=== PATIENT | male | born 1980 | race Caucasian/White ===

== ENCOUNTER 2021-01-07 07:34 | Outpatient (REF) | payer OTHER, SELFPAY ==
[2021-01-07 10:05] LABS: MANUAL DIFF FLAG NO
[2021-01-07 10:10] LABS: Basophils Percent Auto 0.3 % (0-2); Eosinophils Absolute Auto 0.3 X10*3/uL (0.0-0.4); Eosinophils Percent Auto 3.9 % (0-4); Hematocrit 43.2 % (42-52); Hemoglobin 14.2 g/dl (14.0-18.0); Imm Gran Abs Auto 0.02 X10*3/uL (0.00-0.03); Imm Gran Pct Auto 0.3 % (0.0-0.4); Mean Corpuscular HGB Conc 32.9 g/dl (31.0-36.0); Mean Corpuscular Hemoglobin 30.5 pg (27.0-33.0); Mean Corpuscular Volume 92.7 fL (80-98); Mean Platelet Volume 10.5 fL (9.4-12.4); Monocytes Absolute Auto 0.6 X10*3/uL (0.1-1.2); Monocytes Percent Auto 8.5 % (2-11); Neutrophils Absolute Auto 4.6 X10*3/uL (2.0-8.3); Platelet Count 246 X10*3/uL (160-400); Red Blood Count 4.66 X10*6/uL (4.60-5.80); White Blood Count 7.5 X10*3/uL (4.8-10.8)
[2021-01-07 11:04] LABS: Estimated Average Glucose 114 mg/dL; Hemoglobin A1c % 5.6 %
[2021-01-07 11:16] LABS: Alanine Aminotransferase 19 U/L (0-40); Albumin Level 4.2 g/dL (3.5-5.0); Alkaline Phosphatase 79 U/L (39-117); Anion Gap 10 (12-20); Aspartate Amino Transferase 18 U/L (5-37); Bilirubin Total 0.3 mg/dL (0.0-1.0); Blood Urea Nitrogen 16 mg/dL (9-16); Carbon Dioxide 30 mmol/L (22-29); Chloride 104 mmol/L (96-108); Cholesterol 171 mg/dL; Estimated Glomerular Filt Rate > 60; Glucose Fasting 104 mg/dL (60-99); HDL Cholesterol 33 mg/dL; LDL Cholesterol Calculated 110 mg/dl; Potassium 5.1 mmol/L (3.3-5.1); Sodium 139 mmol/L (135-145); Total Protein 7.8 g/dL (6.5-8.0); Triglycerides 140 mg/dL
== END 2021-01-07 07:35 | disposition home or self-care (01) ==
LOC: HO.10HDL 07:34
PROVIDERS: Visit Provider Psychiatry & Neurology Psychiatry
DX: F43.10 Post-traumatic stress disorder, unspecified (principal)
CPT/HCPCS: 36415; 80053; 80061; 83036; 85025

== ENCOUNTER 2021-03-09 19:42 | Emergency (ER) | payer OTHER, SELFPAY ==
--- NOTE | ~2021-03-09 | XR_ITS ---
EXAMINATION: XR KNEE, RIGHT CLINICAL INFORMATION: Right knee pain and swelling COMPARISON: None TECHNIQUE: Four views of the right knee. FINDINGS: There is some minimal degenerative change present at the patellofemoral joint with some mild posterior osteophytes. No joint space narrowing is seen. No joint effusion is seen. No fractures are seen. XR/XR knee RT 4V IMPRESSION: Minimal degenerative change at the patellofemoral joint only.
--- NOTE | ~2021-03-09 | US_ITS ---
EXAMINATION: US VENOUS ULTRASOUND WITH DOPPLER LOWER EXTREMITY, RIGHT CLINICAL INFORMATION: Right lower extremity pain and swelling COMPARISON: None TECHNIQUE: Ultrasound of the deep veins is performed from the hip to the calf with compression sonography and color and pulse Doppler assessment. Spectral analysis with color-flow imaging is performed. FINDINGS: There is normal venous compression and respiratory variation and augmented flow. The visualized common femoral vein, superficial femoral vein, profunda femoral vein, popliteal vein, and the trifurcation region shows no evidence of deep venous thrombosis. There is no significant popliteal fossa cyst. The contralateral left femoral vein appears normal If the patient's symptoms persist, followup ultrasound in 5 days 7 days might be of value to exclude proximal propagation from a non-visualized calf vein. US/US venous duplex LE RT IMPRESSION: No DVT demonstrated in the right lower extremity.
[2021-03-09 19:44] VITALS: BP 144/72; PULSE 99; RESP 18; TEMP 36.4; O2SAT 97; BMI 39.9
--- NOTE | 2021-03-09 20:01 | ED_ITS ---
HPI - Extremity Injury (Lower) General Chief Complaint: Extremity Injury, Lower Stated Complaint: Knee Swelling Time Seen by Provider: 03/09/21 19:53 Source: patient Mode of arrival: ambulatory Limitations: no limitations History of Present Illness HPI Narrative: 40-year-old male with no significant past medical history presents with 1 week of right knee pain, swelling, and warmth. 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 He states the pain is worse on the lateral side above the patella. He does not report any chest pain or pressure, palpitations, shortness of breath, shortness of breath on exertion, fevers, chills, abdominal pain, abdominal distention, dysuria, hematuria, loss of sensation to the extremity, or any other concerning symptoms. MD complaint: knee injury Onset (ago): week(s) (1) Type of Injury: unknown Place: work Severity: moderate Severity scale (1-10): 7 Relieving factors: nothing Exacerbating factors: weight bearing, movement and palpation Context: other (Kneeling) Associated symptoms: swelling and ambulatory Other symptoms: none Related Data Previous Rx's Medication Instructions Recorded ibuprofen 600 mg PO Q6H PRN #60 tab 03/09/21 Allergies Allergy/AdvReac Type Severity Reaction Status Date / Time No Known Allergies Allergy Verified 03/09/21 19:44 Review of Systems Review of Systems: Constitutional: No Fever, No Chills ENT/Mouth: No Ear Pain, No Hoarseness, No sore throat Eyes: No Eye Pain, No Swelling, No Redness, No Foreign Body Cardiovascular: No Chest Pain, No SOB Respiratory: No Cough, No Dyspnea Gastrointestinal: No Nausea, No Vomiting, No Diarrhea, No abdominal Pain Genitourinary: No Dysuria, No Hematuria Musculoskeletal: positive right knee pain and swelling, No Myalgias Skin: No Skin lacerations, No rash Neuro: No Weakness, No Numbness, No Paresthesias, No Loss of Consciousness, No Dizziness, No Headache Psych: No Anxiety/Panic, No Depression Heme/Lymph: no easy bruising, no Lymphadenopathy Endocrine: No Polyuria, No Polydipsia Yes all other systems are reviewed and are negative PMFSH Past Medical History Attestation statement: The following information was validated with the patient. Source: old records reviewed Medical History PTSD (post-traumatic stress disorder) Social History Social History Alcohol intake: never Smoking Status: Heavy tobacco smoker Use of substances other than those prescribed or required for medical reasons: No Any prior treatment program specific to substance use: No Advance Directives: No Advance Directives Information Provided: Yes Physical Exam Vital Signs: Vital Signs: Last Vital Signs Temp 97.6 F 03/09/21 19:44 Pulse 99 03/09/21 19:44 Resp 18 03/09/21 19:44 BP 144/72 H 03/09/21 19:44 Pulse Ox 97 03/09/21 19:44 Body Mass Index 39.9 Appearance: Alert. Oriented X3. No acute distress. Eyes: Pupils equal, round and reactive to light. ENT: Pharynx normal. Neck: Normal inspection. Neck supple. CVS: Normal heart rate and rhythm. Pulses normal. Respiratory: No respiratory distress. Breath sounds normal. Abdomen: Soft and nontender. Skin: Skin warm and dry. Normal skin color. Normal skin turgor. Extremities: Full range of motion to bilateral lower extremities, negative anterior and posterior draw, visible swelling noted to the right knee, pink in color, darker than the left. Tenderness noted to palpation suprapatellar. No lower extremity edema. Neuro: No motor deficit. No sensory deficit. Course Course Course Narrative: 40-year-old male, works as a manager communication and spends most of his work time kneeling presents with right knee pain and swelling for about a week. Presented today because the knee felt warmer than it has in the past and has become more pink. Patient does have full range of motion, negative anterior and posterior drawer, could possibly be an effusion, hemarthrosis, highly unlikely for septic joint as patient is afebrile. Plan of care is for x-ray and duplex. X-rays is negative, duplex is negative. Plan of care is for patient to follow-u p with orthopedics for follow-up. Detailed description of negative venous duplex study, he does understand that if swelling persists that he should repeat duplex in 5-7 days. Will give prescription for Motrin 600 mg. Patient verbalized understanding of and agrees to plan of care discharge home. MDM - Extremity Injury (Lower) MDM Narrative Medical decision making narrative: Effusion, hemarthrosis, septic joint, ACL injury, DVT Differential Diagnosis Differential diagnosis: Likely acute internal derangement of knee Medical Records Attestation: I reviewed the patient's medical records. Imaging Data Right knee x-ray: Attestation: I personally reviewed and interpreted this imaging study as follows: Radiologist's impression: EXAMINATION: XR KNEE, RIGHT CLINICAL INFORMATION: Right knee pain and swelling COMPARISON: None TECHNIQUE: Four views of the right knee. FINDINGS: There is some minimal degenerative change present at the patellofemoral joint with some mild posterior osteophytes. No joint space narrowing is seen. No joint effusion is seen. No fractures are seen. XR/XR knee RT 4V IMPRESSION: Minimal degenerative change at the patellofemoral joint only. Right venous duplex: Attestation: I personally reviewed and interpreted this imaging study as follows: Radiologist's impression: EXAMINATION: US VENOUS ULTRASOUND WITH DOPPLER LOWER EXTREMITY, RIGHT CLINICAL INFORMATION: Right lower extremity pain and swelling COMPARISON: None TECHNIQUE: Ultrasound of the deep veins is performed from the hip to the calf with compression sonography and color and pulse Doppler assessment. Spectral analysis with color-flow imaging is performed. FINDINGS: There is normal venous compression and respiratory variation and augmented flow. The visualized common femoral vein, superficial femoral vein, profunda femoral vein, popliteal vein, and the trifurcation region shows no evidence of deep venous thrombosis. There is no significant popliteal fossa cyst. The contralateral left femoral vein appears normal If the patient's symptoms persist, followup ultrasound in 5 days 7 days might be of value to exclude proximal propagation from a non-visualized calf vein. US/US venous duplex LE RT IMPRESSION: No DVT demonstrated in the right lower extremity. Discharge Plan Discharge Clinical Impression: Osteophyte of knee Qualifiers: Laterality: right Qualified Code(s): M25.761 - Osteophyte, right knee Patient Disposition: Home, Self-Care Instructions: Arthritis (ED) Additional Instructions: Your evaluated for right knee pain. X-rays of the knee show osteophytes, consistent with arthritis. Venous duplex of the right lower extremity is negative for blood clots. If your leg continues to swell, you must return in 5- 7 days for repeat ultrasound. We prescribed Motrin for pain management. You may consider following up with Orthopedics if pain persists. Please call and request an appointment. Thank you for choosing this emergency department for evaluation. Please follow-up with primary care physician as needed. Return to the emergency department for any new, concerning, or worsening symptoms. Prescriptions: New ibuprofen 600 mg tablet 600 mg PO Q6H PRN (Reason: pain) Qty: 60 RF: 0 Referrals: Lakisha Varela PA-C [Physician [employer]] - 2 days (Right knee osteophytes) Interventions: ED Discharge Assessment Last Done: 03/09/21 21:49 Discharge Date/Time: 03/09/21 21:51
== END 2021-03-09 21:51 | disposition home or self-care (01) ==
PROVIDERS: Emergency Provider Internal Medicine
DX: M25.761 Osteophyte, right knee (principal); M25.561 Pain in right knee
CPT/HCPCS: 73564; 93971; 99284

== ENCOUNTER 2021-03-21 08:39 | Outpatient (REF) | payer OTHER, SELFPAY ==
--- NOTE | ~2021-03-21 | XR_ITS ---
EXAMINATION: XR KNEE, RIGHT CLINICAL INFORMATION: Pain in unspecified knee. COMPARISON: 03/09/2021 TECHNIQUE: Single sunrise view of the right knee. FINDINGS: There is prepatellar soft tissue swelling. No fracture or malalignment. Patellofemoral compartment joint space is normal. Articular surfaces are well preserved. Normal trochlear and patellar morphology. No osteochondral injuries are suspected. XR/XR knee RT 2V IMPRESSION: Prepatellar soft tissue swelling. No acute osseous findings.
== END 2021-03-21 08:40 | disposition home or self-care (01) ==
LOC: HO.HOSX 08:39
PROVIDERS: Visit Provider Physician Assistant
DX: M17.11 Unilateral primary osteoarthritis, right knee (principal)
CPT/HCPCS: 73560

== ENCOUNTER → 2021-11-04 12:48 | Outpatient (BNVA) | payer MEDICAID, SELFPAY | PROVIDERS: Visit Provider Physician Assistant | DX: M70.51 Other bursitis of knee, right knee (principal) | CPT/HCPCS: 99212 ==

== ENCOUNTER → 2021-11-21 09:16 | Outpatient (BNVA) | payer MEDICAID, SELFPAY | PROVIDERS: Visit Provider Surgery | DX: L72.0 Epidermal cyst (principal) | CPT/HCPCS: 99202 ==

== ENCOUNTER 2022-01-09 12:28 | Outpatient (REF) | payer MEDICAID, SELFPAY ==
[2022-01-09 12:39] VITALS: BP 138/90; PULSE 94; RESP 16; TEMP 36.7; O2SAT 97
[2022-01-09 12:42] VITALS: BMI 39.1
--- NOTE | 2022-01-09 13:16 | W.PM.OPN ---
Operative Note Operative Note Date of Service: 01/09/22 Narrative: Preop diagnosis: Epidermal cyst, right forearm Postop diagnosis: Epidermal cyst right forearm Procedure: Excision of epidermal cyst, right forearm under local anesthesia Surgeon: Jeanmarie Van MD The patient is a 41-year-old male with note of recurrent ear pain, swelling tenderness and right forearm. This was consistent with an epidermal cyst. He wanted to proceed with excision. He understood the technique of excision under local anesthesia. He was aware of the risks, benefits, and alternatives. he was brought to the minor procedure room and placed supine with the right arm vision to expose the epidermal cyst. The area was prepped and draped. Lidocaine 1% was used for local anesthesia. I made an elliptical incision around the cyst on the overlying skin using blade 15. And this carried down through the full-thickness skin subcutaneous fat. I sharply dissected the tissue surrounding the cyst using Metzenbaum scissors until the entire cyst was completely and sent as specimen. The cyst measures 3 x 1.5 cm in size i irrigated the area of excision. I closed the incision with full-thickness nylon 3-0 interrupted sutures. Dressings were applied. The procedure was completed. The patient tolerated the procedure well with no complication noted. Estimated blood loss about 5 cc Patient was given wound care instructions and will be seen in the office for a follow-up visit.
== END 2022-01-09 12:29 | disposition home or self-care (01) ==
LOC: HO.MS 12:28
PROVIDERS: PCP Registered Nurse; Visit Provider Surgery
PROC: (CPT 11403; principal; 2022-01-09 13:00)
DX: L72.0 Epidermal cyst (principal)
CPT/HCPCS: 11403; 88304

== ENCOUNTER 2022-01-19 20:21 | Emergency (ER) | payer MEDICAID, SELFPAY ==
[2022-01-19 20:26] VITALS: BP 130/92; PULSE 91; RESP 16; TEMP 36.9; O2SAT 98; BMI 39.1
--- NOTE | 2022-01-19 22:47 | ED_ITS ---
HPI - Back Pain/Injury General Chief Complaint: Back Pain/Injury Stated Complaint: lower back pain and hip Time Seen by Provider: 01/19/22 22:21 Source: patient Mode of arrival: ambulatory History of Present Illness HPI Narrative: 41-year-old male with significant history of osteoarthritis and states that last year he was treated for right knee pain/bursitis and away and since November has had progressive left lower back pain discomfort with radiation that wraps around his left hip in comes across to the anterior thigh without any fever, chills, urinary or bowel problems. Patient denies any numbness or tingling and denies any radiation of the pain into the posterior leg. In addition, he denies any recent trauma to the area. Related Data Home Medications Medication Instructions Recorded Confirmed alprazolam 0.5 mg tablet 0.5 mg PO DAILY PRN 03/21/21 11/21/21 risperidone 1 mg tablet mg PO 03/21/21 11/21/21 risperidone 2 mg tablet 2 mg PO BEDTIME 03/21/21 11/21/21 sertraline 100 mg tablet 200 mg PO DAILY 03/21/21 11/21/21 trazodone 100 mg tablet [id number] mg PO BEDTIME PRN 03/21/21 11/21/21 Previous Rx's Medication Instructions Recorded ibuprofen 600 mg tablet 600 mg PO Q6H PRN #60 tab 03/09/21 ketorolac 10 mg tablet 10 mg PO Q6H PRN 5 Days #20 tab 01/19/22 Allergies Allergy/AdvReac Type Severity Reaction Status Date / Time No Known Allergies Allergy Verified 11/21/21 09:26 Review of Systems Review of Systems: Pertinent positives and negatives as stated in HPI 10 point review of systems otherwise negative. [facility] Past Medical History Source: nursing notes reviewed Medical History Epidermal inclusion cyst PTSD (post-traumatic stress disorder) Surgical History History of excision of epidermal inclusion cyst (~01/09/22) Social History Social History Alcohol intake: never Advance Directives: No Current occupational status: unemployed Current occupation: rt handed Physical Exam Vital Signs: Vital Signs: Last Vital Signs Temp 98.5 F 01/19/22 20:26 Pulse 91 01/19/22 20:26 Resp 16 01/19/22 20:26 BP 130/92 H 01/19/22 20:26 Pulse Ox 98 01/19/22 20:26 BMI result Body Mass Index 39.1 VITAL SIGNS: Reviewed. GENERAL: Well developed, well nourished, in no acute distress. HEAD: Normocephalic/atraumatic EYES: PERRLA, EOMI OROPHARYNX: no oral lesions noted, posterior pharynx clear LUNGS: Normal breath sounds. No adventitious sounds or accessory muscle use. SpO2<98> CARDIOVASCULAR: Regular rate and rhythm without noted murmurs ABDOMEN: Elevated BMI, Soft, non-tender, non-distended with bowel sounds. BACK: Left lower back discomfort on palpation, no midline vertebral tenderness MUSCULOSKELETAL: No tenderness, deformities, or effusions noted on gross inspection. EXTREMITIES: No cyanosis, clubbing or edema, palpable DP/PT, sensation is intact SKIN: Inspection of the skin reveals no rashes NEUROLOGIC: Alert and oriented x 4. Strength and sensation to light touch were grossly intact x 4. Course Course Course Narrative: 41-year-old male with history and clinical presentation consistent with lumbar radiculopathy. Patient treated with combination analgesics as well as lidocaine patch and will be discharged home in stable condition with instructions to follow-up with primary care provider and discuss possible referral for physical therapy for additional support. Discharge Plan Discharge Clinical Impression: Left lumbar radiculopathy Patient Disposition: Home, Self-Care Instructions: Lumbar Radiculopathy (ED), Lower Back Exercises (ED) Additional Instructions: 1. Tylenol 1000 mg, orally, every 6 hours as needed for pain control. Do not exceed 4000 mg with in 24 hours. Stop taking ibuprofen at this time as you will be prescribed a stronger alternative medication. 2. Lidocaine patch, these are available [id number] and should be apply to the area of maximal tenderness as directed on the outside packaging. 3. Follow-up with your primary care provider and discuss possible referral for physical therapy. Return to the ER for worsening symptoms. Prescriptions: New ketorolac 10 mg tablet 10 mg PO Q6H PRN (Reason: pain) 5 Days Qty: 20 0RF Rx Instructions: Patient received Toradol in the ER. Instructed patient to stop taking ibuprofen. No Action ibuprofen 600 mg tablet 600 mg PO Q6H PRN (Reason: pain) Qty: 60 0RF sertraline 100 mg tablet 200 mg PO DAILY 0RF risperidone 1 mg tablet PO 0RF alprazolam 0.5 mg tablet 0.5 mg PO DAILY PRN0RF risperidone 2 mg tablet 2 mg PO BEDTIME 0RF trazodone 100 mg tablet [id number] mg PO BEDTIME [id number] Referrals: [facility] [Primary Care Provider] - 2 days
[2022-01-19] MEDS: Ketorolac Tromethamine 15 MG/ML VIAL IM (23:01)
[2022-01-19] MEDS: Acetaminophen 325 MG TABLET 975 MG PO (23:01)
[2022-01-19] MEDS: Lidocaine 4 % Patch ADH..PATCH 1 PATCH TRANSDERMA (23:02)
== END 2022-01-19 23:17 | disposition home or self-care (01) ==
PROVIDERS: Emergency Provider Student in an Organized Health Care Education/Training Program
DX: M54.16 Radiculopathy, lumbar region (principal); M54.50 Low back pain, unspecified; M25.552 Pain in left hip; Z79.899 Other long term (current) drug therapy
CPT/HCPCS: 96372; 99284; J1885

== ENCOUNTER → 2022-01-22 10:33 | Outpatient (BNVA) | payer MEDICAID, SELFPAY | PROVIDERS: PCP Registered Nurse; Referring Provider Registered Nurse; Visit Provider Surgery | DX: Z48.817 Encounter for surgical aftercare following surgery on the skin and subcutaneous tissue (principal); Z87.2 Personal history of diseases of the skin and subcutaneous tissue | CPT/HCPCS: 99212 ==

== ENCOUNTER 2022-02-05 11:37 | Outpatient (REF) | payer MEDICAID, SELFPAY ==
--- NOTE | ~2022-02-05 | XR_ITS ---
EXAMINATION: XR lumbar spine 4V min, XR hip LT min 2V CLINICAL INFORMATION: Reason for Exam LOW BACK PAIN COMPARISON: None TECHNIQUE: 3 views of the lumbar spine. 2 views of the hip. XR/XR lumbar spine 4V min FINDINGS/IMPRESSION: 5 nonrib-bearing lumbar-type vertebral bodies. Vertebral body heights are maintained. Alignment is maintained. Disc space heights are maintained. Paravertebral soft tissues are unremarkable. No hip fracture or dislocation. Left hip joint space is maintained.
--- NOTE | ~2022-02-05 | XR_ITS ---
EXAMINATION: XR lumbar spine 4V min, XR hip LT min 2V CLINICAL INFORMATION: Reason for Exam LOW BACK PAIN COMPARISON: None TECHNIQUE: 3 views of the lumbar spine. 2 views of the hip. XR/XR hip LT min 2V FINDINGS/IMPRESSION: 5 nonrib-bearing lumbar-type vertebral bodies. Vertebral body heights are maintained. Alignment is maintained. Disc space heights are maintained. Paravertebral soft tissues are unremarkable. No hip fracture or dislocation. Left hip joint space is maintained.
== END 2022-02-05 11:38 | disposition home or self-care (01) ==
LOC: HO.XRAY 11:37
PROVIDERS: Absent Provider Registered Nurse; PCP Registered Nurse; Visit Provider Emergency Medicine
DX: M54.50 Low back pain, unspecified (principal); M25.552 Pain in left hip
CPT/HCPCS: 72110; 73502

== ENCOUNTER 2022-04-29 13:03 | Emergency (ER) | payer MEDICAID, SELFPAY ==
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
[2022-04-29 13:29] VITALS: BP 107/75; PULSE 90; RESP 18; TEMP 36.1; O2SAT 99; BMI 37.8
[2022-04-29] MEDS: oxyCODONE HCl Immed Release 5 MG TABLET PO ×2 (15:26→19:32)
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
[2022-04-29] MEDS: Bacitracin Oint 14 GM TUBE 1 APPL TOPICAL (17:02)
[2022-04-29] MEDS: Ibuprofen 800 MG TABLET PO (19:31)
[2022-04-29] MEDS: Acetaminophen 325 MG TABLET 650 MG PO (19:31)
== END 2022-04-29 20:27 | disposition home or self-care (01) ==
PROVIDERS: Emergency Provider Emergency Medicine; PCP Registered Nurse
DX: S42.031A Displaced fracture of lateral end of right clavicle, initial encounter for closed fracture (principal); S52.125A Nondisplaced fracture of head of left radius, initial encounter for closed fracture; S52.615A Nondisplaced fracture of left ulna styloid process, initial encounter for closed fracture; V28.4XXA Motorcycle driver injured in noncollision transport accident in traffic accident, initial encounter; Y93.89 Activity, other specified; Y92.414 Local residential or business street as the place of occurrence of the external cause; Y99.9 Unspecified external cause status
CPT/HCPCS: 29125; 70450; 71250; 72125; 73030; 73080; 73100; 74176; 99282; 99284

== ENCOUNTER 2022-05-08 07:17 | Outpatient (REF) | payer MEDICAID, SELFPAY ==
--- NOTE | ~2022-05-08 | XR_ITS ---
EXAMINATION: XR CLAVICLE, RIGHT CLINICAL INFORMATION: Fracture COMPARISON: Previous right shoulder x-ray March 2022 TECHNIQUE: 2 of the right clavicle. FINDINGS: There is a comminuted minimally displaced fracture of the right distal clavicle. This appears unchanged from March 2022 exam. No other fracture is seen. The acromioclavicular joint is normal. There is soft tissue swelling adjacent to the fracture. XR/XR clavicle RT IMPRESSION: No change in the comminuted minimally displaced right distal clavicle fracture.
--- NOTE | ~2022-05-08 | XR_ITS ---
EXAMINATION: XR ELBOW, LEFT CLINICAL INFORMATION: Fracture COMPARISON: None TECHNIQUE: AP, lateral, and oblique views of the left elbow. FINDINGS: There is a nondisplaced radial head fracture that is unchanged. No other fracture is seen. Joint spaces are normal. There is an elbow joint effusion. XR/XR elbow LT min 3V IMPRESSION: No change in the nondisplaced radial head fracture. Joint effusion.
--- NOTE | ~2022-05-08 | XR_ITS ---
EXAMINATION: XR WRIST, LEFT CLINICAL INFORMATION: Fracture COMPARISON: Previous x-ray 04/29/2022 TECHNIQUE: PA, lateral, and oblique views of the left wrist. FINDINGS: There is no change in the ulnar styloid fracture. No other fracture is seen. Carpal bones are normal. There are 2 soft tissue radiopaque foreign bodies in the first webspace in between the first and second metacarpal bones. These appear unchanged. XR/XR wrist LT min 3V IMPRESSION: No change in ulnar styloid fracture. Stable soft tissue foreign bodies in the first web space.
== END 2022-05-08 07:18 | disposition home or self-care (01) ==
LOC: HO.HOSX 07:17
PROVIDERS: Visit Provider Physician Assistant
DX: S42.001A Fracture of unspecified part of right clavicle, initial encounter for closed fracture (principal); S52.122A Displaced fracture of head of left radius, initial encounter for closed fracture; S52.611A Displaced fracture of right ulna styloid process, initial encounter for closed fracture; V28.4XXA Motorcycle driver injured in noncollision transport accident in traffic accident, initial encounter; Y93.9 Activity, unspecified; Y92.9 Unspecified place or not applicable; Y99.9 Unspecified external cause status
CPT/HCPCS: 73000; 73080; 73110; 99202

== ENCOUNTER 2022-06-05 07:31 | Outpatient (REF) | payer MEDICAID, SELFPAY ==
--- NOTE | ~2022-06-05 | XR_ITS ---
EXAMINATION: XR WRIST, LEFT XR ELBOW, LEFT XR CLAVICLE, RIGHT CLINICAL INFORMATION: Injury. Question fracture. COMPARISON: Right clavicle, left wrist and left elbow 05/08/2022. TECHNIQUE: Left wrist 3 views, left elbow 3 views and right clavicle 2 views. FINDINGS: LEFT ELBOW: There is a nondisplaced fracture involving left radial head extending to the lateral cortex with small callus formation laterally. No abnormal joint effusion seen. No new fracture or dislocation. LEFT WRIST: There is a nondisplaced ulnar styloid process fracture. No change from the last exam. No additional fracture seen involving the left wrist. No dislocation. The soft tissues are normal. RIGHT CLAVICLE: There is a slowly healing comminuted fracture right lateral clavicle with callus. There is no acromioclavicular disruption seen. There is callus formation. XR/XR elbow LT min 3V IMPRESSION: There is no significant change in slowly healing ulnar styloid process, nondisplaced radial head and neck and comminuted lateral clavicular fractures. There is healing callus formation seen at all the fracture sites. No new fractures seen.
--- NOTE | ~2022-06-05 | XR_ITS ---
EXAMINATION: XR WRIST, LEFT XR ELBOW, LEFT XR CLAVICLE, RIGHT CLINICAL INFORMATION: Injury. Question fracture. COMPARISON: Right clavicle, left wrist and left elbow 05/08/2022. TECHNIQUE: Left wrist 3 views, left elbow 3 views and right clavicle 2 views. FINDINGS: LEFT ELBOW: There is a nondisplaced fracture involving left radial head extending to the lateral cortex with small callus formation laterally. No abnormal joint effusion seen. No new fracture or dislocation. LEFT WRIST: There is a nondisplaced ulnar styloid process fracture. No change from the last exam. No additional fracture seen involving the left wrist. No dislocation. The soft tissues are normal. RIGHT CLAVICLE: There is a slowly healing comminuted fracture right lateral clavicle with callus. There is no acromioclavicular disruption seen. There is callus formation. XR/XR clavicle RT IMPRESSION: There is no significant change in slowly healing ulnar styloid process, nondisplaced radial head and neck and comminuted lateral clavicular fractures. There is healing callus formation seen at all the fracture sites. No new fractures seen.
--- NOTE | ~2022-06-05 | XR_ITS ---
EXAMINATION: XR WRIST, LEFT XR ELBOW, LEFT XR CLAVICLE, RIGHT CLINICAL INFORMATION: Injury. Question fracture. COMPARISON: Right clavicle, left wrist and left elbow 05/08/2022. TECHNIQUE: Left wrist 3 views, left elbow 3 views and right clavicle 2 views. FINDINGS: LEFT ELBOW: There is a nondisplaced fracture involving left radial head extending to the lateral cortex with small callus formation laterally. No abnormal joint effusion seen. No new fracture or dislocation. LEFT WRIST: There is a nondisplaced ulnar styloid process fracture. No change from the last exam. No additional fracture seen involving the left wrist. No dislocation. The soft tissues are normal. RIGHT CLAVICLE: There is a slowly healing comminuted fracture right lateral clavicle with callus. There is no acromioclavicular disruption seen. There is callus formation. XR/XR wrist LT min 3V IMPRESSION: There is no significant change in slowly healing ulnar styloid process, nondisplaced radial head and neck and comminuted lateral clavicular fractures. There is healing callus formation seen at all the fracture sites. No new fractures seen.
== END 2022-06-05 07:32 | disposition home or self-care (01) ==
LOC: HO.HOSX 07:31
PROVIDERS: Visit Provider Physician Assistant
DX: M25.522 Pain in left elbow (principal); M25.531 Pain in right wrist; S42.001A Fracture of unspecified part of right clavicle, initial encounter for closed fracture
CPT/HCPCS: 73000; 73080; 73110

== ENCOUNTER 2022-07-04 07:28 | Outpatient (REF) | payer MEDICAID, SELFPAY ==
--- NOTE | ~2022-07-04 | XR_ITS ---
EXAMINATION: XR ELBOW, LEFT CLINICAL INFORMATION: Follow-up radial head fracture. COMPARISON: Radiographs dated 05/06/2022. TECHNIQUE: AP, lateral, and oblique views of the left elbow. FINDINGS: A mildly displaced left radial head fracture is again seen. There is mild interim increase in distraction of fracture fragments, with approximately 2 mm of step-off of the lateral fracture fragment. No dislocation is seen. There is no significant joint effusion. No foreign body is seen. XR/XR elbow LT min 3V IMPRESSION: A mildly displaced left radial head fracture is seen, with mild interim increase in distraction of fracture fragments. EXAMINATION: XR CLAVICLE, RIGHT CLINICAL INFORMATION: Follow-up lateral clavicular fracture. COMPARISON: Radiographs dated 05/06/2022. TECHNIQUE: Straight AP and cephalad angulated AP views of the right clavicle. FINDINGS: There is stable alignment of a distal right clavicular fracture. There is good adjacent callus formation. The glenohumeral joint is intact. The acromioclavicular and coracoclavicular intervals are normal. No foreign body is seen. There is no right pneumothorax IMPRESSION: There is stable alignment of a distal right clavicular fracture. Good callus formation is noted.
--- NOTE | ~2022-07-04 | XR_ITS ---
EXAMINATION: XR ELBOW, LEFT CLINICAL INFORMATION: Follow-up radial head fracture. COMPARISON: Radiographs dated 05/06/2022. TECHNIQUE: AP, lateral, and oblique views of the left elbow. FINDINGS: A mildly displaced left radial head fracture is again seen. There is mild interim increase in distraction of fracture fragments, with approximately 2 mm of step-off of the lateral fracture fragment. No dislocation is seen. There is no significant joint effusion. No foreign body is seen. XR/XR clavicle RT IMPRESSION: A mildly displaced left radial head fracture is seen, with mild interim increase in distraction of fracture fragments. EXAMINATION: XR CLAVICLE, RIGHT CLINICAL INFORMATION: Follow-up lateral clavicular fracture. COMPARISON: Radiographs dated 05/06/2022. TECHNIQUE: Straight AP and cephalad angulated AP views of the right clavicle. FINDINGS: There is stable alignment of a distal right clavicular fracture. There is good adjacent callus formation. The glenohumeral joint is intact. The acromioclavicular and coracoclavicular intervals are normal. No foreign body is seen. There is no right pneumothorax IMPRESSION: There is stable alignment of a distal right clavicular fracture. Good callus formation is noted.
== END 2022-07-04 07:29 | disposition home or self-care (01) ==
LOC: HO.HOSX 07:28
PROVIDERS: Visit Provider Physician Assistant
DX: M25.522 Pain in left elbow (principal); M89.8X1 Other specified disorders of bone, shoulder
CPT/HCPCS: 73000; 73080

== ENCOUNTER 2022-07-21 08:00 | Outpatient (RCR) | payer MEDICAID, SELFPAY ==
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
--- NOTE | 2022-07-21 08:45 | MHC.PT.DC ---
[facility] [place] Office [place] Office [place] Office [address] Vikash Ordonez [address] [phone] F: [phone] F: [phone] F: [phone] F: [phone] Physical Therapy Discharge Report Diagnosis: L clavicle fx Date of Surgery: Date of Evaluation: 06/27/22 Date of Discharge: 07/21/22 Treatments to Date: 8 Cancellations to Date: 0 No Shows to Date: 0 Discharge Status: Achieved Goals Improved Function Independent with HEP Discharge Summary: He has met all goals with full AROM, decreased pain, and 22/130 SPADI (improved from 77/130). We reviewed that his clavicle is still healing and that he should continue to protect it and gradually increase load over time once cleared by ortho. We will d/c this chart and pt will start with OT for his L elbow/wrist. No further questions at this time. Electronically signed by: Margaret Saha PT Please sign and return to therapist. Thank you for your referral.
== END 2022-07-21 08:46 | disposition home or self-care (01) ==
LOC: HO.PTCHIC 08:00
PROVIDERS: PCP Registered Nurse; Visit Provider Physician Assistant
DX: S52.122A Displaced fracture of head of left radius, initial encounter for closed fracture (principal)
CPT/HCPCS: 97110; 97161

== ENCOUNTER 2022-08-14 09:30 | Outpatient (RCR) | payer MEDICAID, SELFPAY ==
--- NOTE | 2022-08-18 08:44 | MHC.OT.DC ---
[address] [phone] F: [phone] Occupational Therapy Discharge Note Provider: HILTON Mckee Diagnosis: Displaced fracture of head of left radius Date of Surgery: Date of Evaluation: 07/25/22 Date of Discharge: 08/14/22 Treatments to Date: 6 Cancellations to Date: No Shows to Date: Discharge Status: Achieved Goals Improved Function Discharge Summary: Progressing well and very motivated. Indep in all areas with modifications , avoiding lifting > 10 lb due to medial elbow pain with lifting > 10 lb. Going to the gym 3x wk. AROM elbow ext ~10 deg flexion 125 deg Hand Salter R 140 lb L 125 lb Electronically Signed By: Shira Rajput OT CHT CLT Reviewed/agree with student documentation: N/A Therapist: Please Sign and return to therapist, thank you for your referral.
== END 2022-08-18 08:44 | disposition home or self-care (01) ==
LOC: HO.OT 09:30
PROVIDERS: PCP Registered Nurse; Visit Provider Physician Assistant
DX: S52.122A Displaced fracture of head of left radius, initial encounter for closed fracture (principal)
CPT/HCPCS: 29105; 97110; 97140; 97166; 97760

== ENCOUNTER 2022-08-15 07:53 | Outpatient (REF) | payer MEDICAID, SELFPAY ==
--- NOTE | ~2022-08-15 | XR_ITS ---
EXAMINATION: XR ELBOW, LEFT CLINICAL INFORMATION: Pain. COMPARISON: Prior radiographs, most recently 07/04/2022. TECHNIQUE: AP, lateral, and oblique views of the left elbow. FINDINGS: A mildly displaced fracture of line is redemonstrated at the lateral aspect of the left radial head, in stable alignment. Again, there is approximately 2 mm of step off of the lateral fracture fragment. There is no significant callus formation seen. No dislocation is seen. There is no significant joint effusion. No foreign body is noted. XR/XR elbow LT min 3V IMPRESSION: There is a persistent left radial head fracture, in stable alignment. No significant new callus formation is seen.
--- NOTE | ~2022-08-15 | XR_ITS ---
EXAMINATION: XR CLAVICLE, RIGHT CLINICAL INFORMATION: Follow-up distal clavicular fracture. COMPARISON: Prior radiographs, most recently 07/04/2022. TECHNIQUE: Straight AP and cephalad angulated AP views of the right clavicle. FINDINGS: There is mild bony demineralization. There is a mildly displaced fracture again seen of the distal right clavicle, in stable alignment. There is adjacent callus formation. The glenohumeral joint is intact. The acromioclavicular and coracoclavicular intervals are normal. No foreign body is seen. There is no right pneumothorax. XR/XR clavicle RT IMPRESSION: A mildly displaced distal right clavicular fracture is redemonstrated, in stable alignment. There is good adjacent callus formation, with persistent fracture lines noted.
== END 2022-08-15 07:54 | disposition home or self-care (01) ==
LOC: HO.HOSX 07:53
PROVIDERS: Visit Provider Physician Assistant
DX: S42.001A Fracture of unspecified part of right clavicle, initial encounter for closed fracture (principal); S52.122A Displaced fracture of head of left radius, initial encounter for closed fracture
CPT/HCPCS: 73000; 73080; 99212

== ENCOUNTER → 2022-09-17 13:24 | Outpatient (BNVA) | payer MEDICAID, SELFPAY | PROVIDERS: PCP Registered Nurse; Visit Provider Surgery | DX: L72.0 Epidermal cyst (principal) | CPT/HCPCS: 99212 ==

== ENCOUNTER 2022-10-10 12:42 | Outpatient (REF) | payer MEDICAID, SELFPAY ==
--- NOTE | ~2022-10-10 | XR_ITS ---
EXAMINATION: XR ELBOW, LEFT CLINICAL INFORMATION: Elbow pain. COMPARISON: Multiple elbow radiographs on the left, the most recent 08/15/2022 and the oldest 04/19/2022. There are right elbow radiographs dated 08/16/2012. TECHNIQUE: AP, lateral, and oblique views of the left elbow. FINDINGS: Again seen is a intra-articular radial head fracture. Since the 04/29/2022 study where this was initially seen, significant sclerosis has occurred laterally, but fracture healing is not complete and the fracture line appears slightly wider. Incidental note is made of a similar right radial head fracture on the 08/16/2012 study. Again seen is an intra-articular radial head fracture. XR/XR elbow LT min 3V IMPRESSION: Healing radial head fracture with significant sclerosis laterally (but not along the fracture line) and minimal widening of the fracture line.
== END 2022-10-10 12:43 | disposition home or self-care (01) ==
LOC: HO.HOSX 12:42
PROVIDERS: Visit Provider Physician Assistant
DX: S42.001D Fracture of unspecified part of right clavicle, subsequent encounter for fracture with routine healing (principal); S42.202D Unspecified fracture of upper end of left humerus, subsequent encounter for fracture with routine healing; V89.2XXD Person injured in unspecified motor-vehicle accident, traffic, subsequent encounter
CPT/HCPCS: 73080; 99212

== ENCOUNTER 2023-03-13 20:26 | Emergency (ER) | payer MEDICAID, SELFPAY ==
--- NOTE | ~2023-03-13 | XR_ITS ---
EXAMINATION: XR CHEST CLINICAL INFORMATION: Pain. Shortness of breath. COMPARISON: None available. TECHNIQUE: 2 views of the chest were obtained. FINDINGS: No significant abnormality is noted involving the heart, lungs, mediastinum, bony thorax or soft tissues. XR/XR chest 2V IMPRESSION: Unremarkable examination.
--- NOTE | 2023-03-13 20:57 | ED.GENADULT ---
HPI - General Adult General Chief complaint: Upper Respiratory Symptoms <HILTON Yuan - Last Filed: 03/13/23 20:57> Stated complaint: Flu like symptoms <HILTON Yuan - Last Filed: 03/13/23 20:57> Time Seen by Provider: 03/13/23 22:41 <HILTON Yuan - Last Filed: 03/13/23 20:57> Source: patient <eSlene Vuong MD - Last Filed: 03/13/23 23:15> Mode of arrival: ambulatory <Selene Vuong MD - Last Filed: 03/13/23 23:15> Limitations: no limitations <Selene Vuong MD - Last Filed: 03/13/23 23:15> History of Present Illness HPI narrative: Comes to the emergency room complaining of a sore throat that started earlier today. Patient states that he is able to swallow but it hurts quite a bit. Patient complaining of fever and chills. Patient denies coughing, no chest pain or shortness of breath, no UTI symptoms <Selene Vuong MD - Last Filed: 03/13/23 23:15> Related Data Home medications: Home Medications Medication Instructions Recorded Confirmed alprazolam 0.5 mg tablet 0.5 mg PO DAILY PRN 03/21/21 09/17/22 risperidone 1 mg tablet mg PO 03/21/21 09/17/22 risperidone 2 mg tablet 2 mg PO BEDTIME 03/21/21 09/17/22 sertraline 100 mg tablet 200 mg PO DAILY 03/21/21 09/17/22 trazodone 100 mg tablet [id number] mg PO BEDTIME PRN 03/21/21 09/17/22 Previous Rx's Medication Instructions Recorded ibuprofen 600 mg tablet 600 mg PO Q6H PRN pain #60 tabs 03/09/21 ketorolac 10 mg tablet 10 mg PO Q6H PRN pain 5 days #20 01/19/22 tabs bacitracin 500 unit/gram topical 1 appl topical BID #30 grams 04/29/22 ointment ibuprofen 800 mg tablet 800 mg PO Q8H PRN pain #14 tabs 04/29/22 lidocaine 5 % topical patch 1 patch topical DAILY PRN pain #30 04/29/22 (Lidoderm) ea oxycodone-acetaminophen 7.5 mg-325 1 tab PO Q6H PRN pain, severe 3 04/29/22 mg tablet (Percocet) days #9 tabs celecoxib 200 mg capsule 200 mg PO BID #60 caps 02/10/23 amoxicillin 500 mg-potassium 1 tab PO BID #19 tabs 03/13/23 clavulanate 125 mg tablet (Augmentin) ibuprofen 600 mg tablet 600 mg PO QID PRN fever or pain 03/13/23 #14 tabs <HILTON Yuan - Last Filed: 03/13/23 20:57> Allergies/adverse reactions: Allergies Allergy/AdvReac Type Severity Reaction Status Date / Time No Known Allergies Allergy Verified 09/17/22 13:42 <HILTON Yuan - Last Filed: 03/13/23 20:57> Review of Systems Review of Systems: Constitutional : No Weight loss, splaying of fever and chills, No Night Sweats, No Fatigue, No Malaise ENT/Mouth : No Hearing loss, No Ear Pain, No Nasal Congestion, No Sinus Pain, No Hoarseness, complaining of sore throat, No Rhinorrhea, No Swallowing Difficulty Eyes: No Eye Pain, No Swelling, No Redness, No Foreign Body, No Discharge, No Vision Changes Cardiovascular : No Chest Pain, No SOB, No Dyspnea on Exertion, No Orthopnea, No Edema, No Palpitations Respiratory : No Cough, No Sputum, No Wheezing, No Smoke Exposure, No Dyspnea Gastrointestinal : No Nausea, No Vomiting, No Diarrhea, No Constipation, No abdominal Pain, No Hematochezia, No Melena Genitourinary : no irregular bleeding, No Dysuria, No Urinary Frequency, No Hematuria, No Urinary Incontinence, No Urgency, No Flank Pain, No Urinary Flow Changes, No Hesitancy Musculoskeletal : No joint pain, No Myalgias, No Joint Swelling Skin : No Skin Lesions, No rash Neuro : No Weakness, No Numbness, No Paresthesias, No Loss of Consciousness, No Dizziness, No Headache Psych : No Anxiety/Panic, No Depression, No SI/HI/AH/VH, No Social Issues, Heme/Lymph: No Bruising, No Bleeding,No Lymphadenopathy Endocrine : No Polyuria, No Polydipsia, No Temperature Intolerance <Selene Vuong MD - Last Filed: 03/13/23 23:15> [facility] Past Medical History Medical History: Medical History Epidermal cyst Epidermal inclusion cyst PTSD (post-traumatic stress disorder) <HILTON Yuan - Last Filed: 03/13/23 20:57> Surgical History: Surgical History History of excision of epidermal inclusion cyst (~01/09/22) <HILTON Yuan - Last Filed: 03/13/23 20:57> Social History Social History: Social History Alcohol intake: never Advance Directives: No Advance Directives Information Provided: No Current occupational status: unemployed Current occupation: rt handed <HILTON Yuan - Last Filed: 03/13/23 20:57> Physical Exam ED Vital Signs: Vital Signs - 24 hr 03/13/23 21:01 Temperature 100.7 F H Pulse Rate 102 H Respiratory Rate 20 Blood Pressure 106/68 Pulse Oximetry 98 Oxygen Delivery Method Room Air BMI result Body Mass Index 39.8 <HILTON Yuan - Last Filed: 03/13/23 20:57> Vital Signs - 24 hr 03/13/23 21:01 Temperature 100.7 F H Pulse Rate 102 H Respiratory Rate 20 Blood Pressure 106/68 Pulse Oximetry 98 Oxygen Delivery Method Room Air BMI result Body Mass Index 39.8 <Selene Vuong MD - Last Filed: 03/13/23 23:15> Const Other: Appearance: Alert. Oriented X3. No acute distress. Eyes: Pupils equal, round and reactive to light. ENT: Pharynx is erythematous, no exudates, no visualize abscesses Neck: Normal inspection. Neck supple. No lymph nodes noted. No crepitus CVS: Normal heart rate and rhythm. Pulses normal. Normal S1 and S2 Respiratory: No respiratory distress. Breath sounds normal. No Wheezing. No rales Abdomen: Soft and nontender. No rigidity. No distention. Skin: Skin warm and dry. Normal skin color. Normal skin turgor. Extremities: No lower extremity edema. No Lacerations. No Rash Neuro: Oriented X 3. No motor deficit. No sensory deficit. Moving all extremities. No slurred speech. CN 2 through 12 grossly intact Psych: calm, cooperative, normal affect <Selene Vuong MD - Last Filed: 03/13/23 23:15> Course Course Course Narrative: RME performed by Amy Mackay PA-C. Patient is a 42 year old assigned male at presenting to the emergency department with a fever and feeling generally unwell. Labs, imaging, and swabs ordered. Patient placed back in the waiting room pending room availability and results. <HILTON Yuan - Last Filed: 03/13/23 20:57> Medications Administered Discontinued Medications Generic Name Dose Route Start Last Admin Trade Name Freq PRN Reason Stop Dose Admin Amoxicillin/Clavulanate Potassium 500 mg 03/13/23 22:59 03/13/23 23:10 Amoxicillin/Potassium Clav 500 Mg Tablet PO 03/13/23 23:00 500 mg ONCE ONE Administration <HILTON Yuan - Last Filed: 03/13/23 20:57> Medications Administered Discontinued Medications Generic Name Dose Route Start Last Admin Trade Name Freq PRN Reason Stop Dose Admin Amoxicillin/Clavulanate Potassium 500 mg 03/13/23 22:59 03/13/23 23:10 Amoxicillin/Potassium Clav 500 Mg Tablet PO 03/13/23 23:00 500 mg ONCE ONE Administration <Selene Vuong MD - Last Filed: 03/13/23 23:15> Medical Decision Making Medical Decision Making MDM Narrative: Patient took Motrin prior to arrival. Also, patient tested positive for strep. Patient was given the 1st dose of Augmentin in the emergency room. <Selene Vuong MD - Last Filed: 03/13/23 23:15> Differential Diagnosis Differential Diagnoses: The differential diagnosis associated with the presentation includes (Strep pharyngitis, COVID, influenza, viral pharyngitis) <Selene Vuong MD - Last Filed: 03/13/23 23:15> Lab Data Result Diagrams: 03/13/23 21:07 03/13/23 21:07 <HILTON Yuan - Last Filed: 03/13/23 20:57> Labs: Lab Results 03/13/23 03/13/23 03/13/23 Range/Units 21:07 21:07 21:07 WBC 10.3 (4.8-10.8) X10*3/uL RBC 4.46 L (4.60-5.80) X10*6/uL Hgb 13.2 L (14.0-18.0) g/dl Hct 38.9 L (42.0-52.0) % MCV 87.2 (80.0-98.0) fL MCH 29.6 (27.0-33.0) pg MCHC 33.9 (31.0-36.0) g/dl RDW 11.8 (11.0-16.0) % Plt Count 178 (160-400) X10*3/uL MPV 10.5 (9.4-12.4) fL Immature Gran % (Auto) 0.3 (0.0-0.4) % Neut % (Auto) 83.5 H (45-73) % Lymph % (Auto) 8.9 L (20-40) % [place] % (Auto) 7.1 (2-11) % Eos % (Auto) 0.1 (0-4) % Baso % (Auto) 0.1 (0-2) % Lymph # (Auto) 0.9 L (1.2-4.9) X10*3/uL [place] # (Auto) 0.7 (0.1-1.2) X10*3/uL Eos # (Auto) 0.0 (0.0-0.4) X10*3/uL Baso # (Auto) 0.0 (0.0-0.2) X10*3/uL Abs Immat Gran (auto) 0.03 (0.00-0.03) X10*3/uL Absolute Neuts (auto) 8.6 H (2.0-8.3) x10*3/uL Absolute Nucleated RBC 0.000 (0.0-0.012) X10*3/uL Nucleated RBC % (auto) 0.0 (0.0-0.2) /100WBC Sodium 137 (135-145) mmol/L Potassium 3.8 D (3.3-5.1) mmol/L Chloride 108 (96-108) mmol/L Carbon Dioxide 20 L (22-29) mmol/L Anion Gap 13 (12-20) BUN 15 (9-16) mg/dL Creatinine 1.43 H (0.5-1.4) mg/dL Estim Creat Clear Calc 100.4 Estimated GFR 54 Random Glucose 99 (60-115) mg/dL Calcium 9.0 (8.4-10.2) mg/dL Magnesium 1.8 (1.6-2.6) mg/dL Total Bilirubin 0.4 (0.0-1.0) mg/dL AST 18 (5-37) U/L ALT 25 (0-40) U/L Alkaline Phosphatase 68 (39-117) U/L Total Protein 7.8 (6.5-8.0) g/dL Albumin 4.3 (3.5-5.0) g/dL COVID-19 ([facility]) (Negative) COVID-19 Clin Com Influenza Type A ([facility]) Negative (Negative) Influenza Type B ([facility]) Negative (Negative) Influenza A & B Note See Note S. pyogenes GrpA [facility] (Negative) 03/13/23 03/13/23 Range/Units 21:07 21:46 WBC (4.8-10.8) X10*3/uL RBC (4.60-5.80) X10*6/uL Hgb (14.0-18.0) g/dl Hct (42.0-52.0) % MCV (80.0-98.0) fL MCH (27.0-33.0) pg MCHC (31.0-36.0) g/dl RDW (11.0-16.0) % Plt Count (160-400) X10*3/uL MPV (9.4-12.4) fL Immature Gran % (Auto) (0.0-0.4) % Neut % (Auto) (45-73) % Lymph % (Auto) (20-40) % [place] % (Auto) (2-11) % Eos % (Auto) (0-4) % Baso % (Auto) (0-2) % Lymph # (Auto) (1.2-4.9) X10*3/uL [place] # (Auto) (0.1-1.2) X10*3/uL Eos # (Auto) (0.0-0.4) X10*3/uL Baso # (Auto) (0.0-0.2) X10*3/uL Abs Immat Gran (auto) (0.00-0.03) X10*3/uL Absolute Neuts (auto) (2.0-8.3) x10*3/uL Absolute Nucleated RBC (0.0-0.012) X10*3/uL Nucleated RBC % (auto) (0.0-0.2) /100WBC Sodium (135-145) mmol/L Potassium (3.3-5.1) mmol/L Chloride (96-108) mmol/L Carbon Dioxide (22-29) mmol/L Anion Gap (12-20) BUN (9-16) mg/dL Creatinine (0.5-1.4) mg/dL Estim Creat Clear Calc Estimated GFR Random Glucose (60-115) mg/dL Calcium (8.4-10.2) mg/dL Magnesium (1.6-2.6) mg/dL Total Bilirubin (0.0-1.0) mg/dL AST (5-37) U/L ALT (0-40) U/L Alkaline Phosphatase (39-117) U/L Total Protein (6.5-8.0) g/dL Albumin (3.5-5.0) g/dL COVID-19 ([facility]) Negative (Negative) COVID-19 Clin Com See Note Influenza Type A ([facility]) (Negative) Influenza Type B ([facility]) (Negative) Influenza A & B Note S. pyogenes GrpA LARA Positive A (Negative) <HILTON Yuan - Last Filed: 03/13/23 20:57> Lab Results 03/13/23 03/13/23 03/13/23 Range/Units 21:07 21:07 21:07 WBC 10.3 (4.8-10.8) X10*3/uL RBC 4.46 L (4.60-5.80) X10*6/uL Hgb 13.2 L (14.0-18.0) g/dl Hct 38.9 L (42.0-52.0) % MCV 87.2 (80.0-98.0) fL MCH 29.6 (27.0-33.0) pg MCHC 33.9 (31.0-36.0) g/dl RDW 11.8 (11.0-16.0) % Plt Count 178 (160-400) X10*3/uL MPV 10.5 (9.4-12.4) fL Immature Gran % (Auto) 0.3 (0.0-0.4) % Neut % (Auto) 83.5 H (45-73) % Lymph % (Auto) 8.9 L (20-40) % [place] % (Auto) 7.1 (2-11) % Eos % (Auto) 0.1 (0-4) % Baso % (Auto) 0.1 (0-2) % Lymph # (Auto) 0.9 L (1.2-4.9) X10*3/uL [place] # (Auto) 0.7 (0.1-1.2) X10*3/uL Eos # (Auto) 0.0 (0.0-0.4) X10*3/uL Baso # (Auto) 0.0 (0.0-0.2) X10*3/uL Abs Immat Gran (auto) 0.03 (0.00-0.03) X10*3/uL Absolute Neuts (auto) 8.6 H (2.0-8.3) x10*3/uL Absolute Nucleated RBC 0.000 (0.0-0.012) X10*3/uL Nucleated RBC % (auto) 0.0 (0.0-0.2) /100WBC Sodium 137 (135-145) mmol/L Potassium 3.8 D (3.3-5.1) mmol/L Chloride 108 (96-108) mmol/L Carbon Dioxide 20 L (22-29) mmol/L Anion Gap 13 (12-20) BUN 15 (9-16) mg/dL Creatinine 1.43 H (0.5-1.4) mg/dL Estim Creat Clear Calc 100.4 Estimated GFR 54 Random Glucose 99 (60-115) mg/dL Calcium 9.0 (8.4-10.2) mg/dL Magnesium 1.8 (1.6-2.6) mg/dL Total Bilirubin 0.4 (0.0-1.0) mg/dL AST 18 (5-37) U/L ALT 25 (0-40) U/L Alkaline Phosphatase 68 (39-117) U/L Total Protein 7.8 (6.5-8.0) g/dL Albumin 4.3 (3.5-5.0) g/dL COVID-19 ([facility]) (Negative) COVID-19 Clin Com Influenza Type A ([facility]) Negative (Negative) Influenza Type B ([facility]) Negative (Negative) Influenza A & B Note See Note S. pyogenes GrpA [facility] (Negative) 03/13/23 03/13/23 Range/Units 21:07 21:46 WBC (4.8-10.8) X10*3/uL RBC (4.60-5.80) X10*6/uL Hgb (14.0-18.0) g/dl Hct (42.0-52.0) % MCV (80.0-98.0) fL MCH (27.0-33.0) pg MCHC (31.0-36.0) g/dl RDW (11.0-16.0) % Plt Count (160-400) X10*3/uL MPV (9.4-12.4) fL Immature Gran % (Auto) (0.0-0.4) % Neut % (Auto) (45-73) % Lymph % (Auto) (20-40) % [place] % (Auto) (2-11) % Eos % (Auto) (0-4) % Baso % (Auto) (0-2) % Lymph # (Auto) (1.2-4.9) X10*3/uL [place] # (Auto) (0.1-1.2) X10*3/uL Eos # (Auto) (0.0-0.4) X10*3/uL Baso # (Auto) (0.0-0.2) X10*3/uL Abs Immat Gran (auto) (0.00-0.03) X10*3/uL Absolute Neuts (auto) (2.0-8.3) x10*3/uL Absolute Nucleated RBC (0.0-0.012) X10*3/uL Nucleated RBC % (auto) (0.0-0.2) /100WBC Sodium (135-145) mmol/L Potassium (3.3-5.1) mmol/L Chloride (96-108) mmol/L Carbon Dioxide (22-29) mmol/L Anion Gap (12-20) BUN (9-16) mg/dL Creatinine (0.5-1.4) mg/dL Estim Creat Clear Calc Estimated GFR Random Glucose (60-115) mg/dL Calcium (8.4-10.2) mg/dL Magnesium (1.6-2.6) mg/dL Total Bilirubin (0.0-1.0) mg/dL AST (5-37) U/L ALT (0-40) U/L Alkaline Phosphatase (39-117) U/L Total Protein (6.5-8.0) g/dL Albumin (3.5-5.0) g/dL COVID-19 ([facility]) Negative (Negative) COVID-19 Clin Com See Note Influenza Type A ([facility]) (Negative) Influenza Type B ([facility]) (Negative) Influenza A & B Note S. pyogenes GrpA [facility] Positive A (Negative) <Selene Vuong MD - Last Filed: 03/13/23 23:15> Discharge Plan Discharge Clinical Impression: Acute streptococcal pharyngitis <HILTON Yuan - Last Filed: 03/13/23 20:57> Patient Disposition: Home, Self-Care <HILTON Yuan - Last Filed: 03/13/23 20:57> Instructions: Strep Throat (ED) <HILTON Yuan - Last Filed: 03/13/23 20:57> Additional Instructions: Please follow-up with your primary care physician tomorrow. If you have any worsening or new symptoms, please return to the emergency room or call 911 <HILTON Yuan - Last Filed: 03/13/23 20:57> Prescriptions: New amoxicillin-pot clavulanate [Augmentin] 500-125 mg tablet 1 tab PO BID Qty: 19 0RF ibuprofen 600 mg tablet 600 mg PO QID PRN (Reason: fever or pain) Qty: 14 0RF No Action celecoxib 200 mg capsule 200 mg PO BID Qty: 60 3RF ibuprofen 600 mg tablet 600 mg PO Q6H PRN (Reason: pain) Qty: 60 0RF ketorolac 10 mg tablet 10 mg PO Q6H PRN (Reason: pain) 5 Days Qty: 20 0RF Rx Instructions: Patient received Toradol in the ER. Instructed patient to stop taking ibuprofen. ibuprofen 800 mg tablet 800 mg PO Q8H PRN (Reason: pain) Qty: 14 0RF lidocaine [Lidoderm] 5 % adhesive patch,medicated 1 patch topical DAILY MDD remove after 12 hours PRN (Reason: pain) Qty: 30 0RF Rx Instructions: leave on most painful area for up to 12 hrs bacitracin 500 unit/gram ointment 1 appl topical BID Qty: 30 1RF oxycodone-acetaminophen [Percocet] 7.5-325 mg tablet 1 tab PO Q6H PRN (Reason: pain, severe) 3 Days Qty: 9 0RF Rx Instructions: Patient may request partial fill sertraline 100 mg tablet 200 mg PO DAILY risperidone 1 mg tablet PO alprazolam 0.5 mg tablet 0.5 mg PO DAILY PRN risperidone 2 mg tablet 2 mg PO BEDTIME trazodone 100 mg tablet [id number] mg PO BEDTIME PRN <HILTON Yuan - Last Filed: 03/13/23 20:57>
[2023-03-13 21:01] VITALS: BP 106/68; PULSE 102; RESP 20; TEMP 38.2; O2SAT 98; BMI 39.8
[2023-03-13 21:14] LABS: MANUAL DIFF FLAG NO
[2023-03-13 21:17] LABS: Basophils Percent Auto 0.1 % (0-2); Eosinophils Percent Auto 0.1 % (0-4); Hematocrit 38.9 % (42.0-52.0); Hemoglobin 13.2 g/dl (14.0-18.0); Imm Gran Abs Auto 0.03 X10*3/uL (0.00-0.03); Imm Gran Pct Auto 0.3 % (0.0-0.4); Lymphocytes Absolute Auto 0.9 X10*3/uL (1.2-4.9); Lymphocytes Percent Auto 8.9 % (20-40); Mean Corpuscular HGB Conc 33.9 g/dl (31.0-36.0); Mean Corpuscular Hemoglobin 29.6 pg (27.0-33.0); Mean Corpuscular Volume 87.2 fL (80.0-98.0); Mean Platelet Volume 10.5 fL (9.4-12.4); Monocytes Absolute Auto 0.7 X10*3/uL (0.1-1.2); Monocytes Percent Auto 7.1 % (2-11); Neutrophils Absolute Auto 8.6 x10*3/uL (2.0-8.3); Neutrophils Percent Auto 83.5 % (45-73); Platelet Count 178 X10*3/uL (160-400); Red Blood Count 4.46 X10*6/uL (4.60-5.80); Red Cell Distribution Width 11.8 % (11.0-16.0); White Blood Count 10.3 X10*3/uL (4.8-10.8)
[2023-03-13 21:34] LABS: IDNOW Serial# 08D9AD1C; Influenza A Negative (Negative); Influenza B2 Negative (Negative)
[2023-03-13 21:35] LABS: COVID-19 Test Negative (Negative); IDNOW Serial# 9DB6401D
[2023-03-13 21:38] LABS: Alanine Aminotransferase 25 U/L (0-40); Albumin Level 4.3 g/dL (3.5-5.0); Alkaline Phosphatase 68 U/L (39-117); Anion Gap 13 (12-20); Aspartate Amino Transferase 18 U/L (5-37); Bilirubin Total 0.4 mg/dL (0.0-1.0); Blood Urea Nitrogen 15 mg/dL (9-16); Carbon Dioxide 20 mmol/L (22-29); Chloride 108 mmol/L (96-108); Creatinine Clr Calc Pharmacy 100.4; Estimated Glomerular Filt Rate 54; Glucose Random 99 mg/dL (60-115); Magnesium 1.8 mg/dL (1.6-2.6); Potassium 3.8 mmol/L (3.3-5.1); Sodium 137 mmol/L (135-145); Total Protein 7.8 g/dL (6.5-8.0)
[2023-03-13 22:28] LABS: IDNOW Serial# 6674DD1D; Strep A Nucleic Acid Positive (Negative)
[2023-03-13] MEDS: Amoxicillin/Potassium Clav 500 MG TABLET PO (23:10)
== END 2023-03-13 23:17 | disposition home or self-care (01) ==
PROVIDERS: Physician Assistant Medical; Emergency Provider Emergency Medicine; PCP Registered Nurse
DX: J02.0 Streptococcal pharyngitis (principal); Z20.822 Contact with and (suspected) exposure to COVID-19
CPT/HCPCS: 71046; 80053; 83735; 85025; 87502; 87635; 87651; 99283

== ENCOUNTER 2023-07-09 09:42 | Outpatient (REF) | payer MEDICAID, SELFPAY ==
[2023-07-09 12:12] LABS: Estimated Average Glucose 105 mg/dL; Hemoglobin A1c % 5.3 %
[2023-07-09 13:04] LABS: Alanine Aminotransferase 26 U/L (0-40); Albumin Level 4.2 g/dL (3.5-5.0); Alkaline Phosphatase 59 U/L (39-117); Anion Gap 13 (12-20); Aspartate Amino Transferase 22 U/L (5-37); Bilirubin Total 0.4 mg/dL (0.0-1.0); Blood Urea Nitrogen 13 mg/dL (9-16); Calcium 9.3 mg/dL (8.4-10.2); Carbon Dioxide 27 mmol/L (22-29); Chloride 105 mmol/L (96-108); Cholesterol 175 mg/dL; Estimated Glomerular Filt Rate > 60; Glucose Random 87 mg/dL (60-115); HDL Cholesterol 40 mg/dL; LDL Cholesterol Calculated 111 mg/dl; Potassium 4.6 mmol/L (3.3-5.1); Sodium 140 mmol/L (135-145); Total Protein 8.5 g/dL (6.5-8.0); Triglycerides 121 mg/dL
== END 2023-07-09 09:43 | disposition home or self-care (01) ==
LOC: HO.HHCL 09:42
PROVIDERS: Visit Provider Registered Nurse
DX: Z00.00 Encounter for general adult medical examination without abnormal findings (principal); E78.2 Mixed hyperlipidemia
CPT/HCPCS: 36415; 80053; 80061; 82306; 83036

== ENCOUNTER 2023-07-27 22:00 | Emergency (ER) | payer MEDICAID, SELFPAY ==
[2023-07-27 22:25] VITALS: BP 130/82; PULSE 80; RESP 18; TEMP 36.6; O2SAT 97; BMI 39.6
--- NOTE | 2023-07-27 23:41 | ED.WOUNDLAC ---
HPI - Wound/Laceration General Chief Complaint: Wound/Laceration Stated Complaint: open wound on heel, nasal congestion Time Seen by Provider: 07/27/23 23:30 Source: patient Mode of arrival: ambulatory Limitations: no limitations History of Present Illness HPI narrative: Patient comes to the emergency room complaining of an ulcer to the heel of the right foot. Patient states that he is not diabetic, he has been having intermittent ulcer in the same spot for several years. It usually heals by itself, then patient she has a callus off and he also stays present for several days. Patient states that he believes he was draining fluid today, patient soaked his healing in water with salt and came to the ED. patient denies fever chills. Patient denies neuropathy. Related Data Home Medications Medication Instructions Recorded Confirmed alprazolam 0.5 mg tablet 0.5 mg PO DAILY PRN 03/21/21 09/17/22 risperidone 1 mg tablet mg PO 03/21/21 09/17/22 risperidone 2 mg tablet 2 mg PO BEDTIME 03/21/21 09/17/22 sertraline 100 mg tablet 200 mg PO DAILY 03/21/21 09/17/22 trazodone 100 mg tablet [id number] mg PO BEDTIME PRN 03/21/21 09/17/22 Previous Rx's Medication Instructions Recorded ibuprofen 600 mg tablet 600 mg PO Q6H PRN pain #60 tabs 03/09/21 ketorolac 10 mg tablet 10 mg PO Q6H PRN pain 5 days #20 01/19/22 tabs bacitracin 500 unit/gram topical 1 appl topical BID #30 grams 04/29/22 ointment ibuprofen 800 mg tablet 800 mg PO Q8H PRN pain #14 tabs 04/29/22 lidocaine 5 % topical patch 1 patch topical DAILY PRN pain #30 04/29/22 (Lidoderm) ea oxycodone-acetaminophen 7.5 mg-325 1 tab PO Q6H PRN pain, severe 3 04/29/22 mg tablet (Percocet) days #9 tabs celecoxib 200 mg capsule 200 mg PO BID #60 caps 02/10/23 amoxicillin 500 mg-potassium 1 tab PO BID #19 tabs 03/13/23 clavulanate 125 mg tablet (Augmentin) ibuprofen 600 mg tablet 600 mg PO QID PRN fever or pain 03/13/23 #14 tabs cephalexin 500 mg capsule 500 mg PO Q12H #14 caps 07/27/23 fexofenadine 180 mg tablet 180 mg PO DAILY #20 tabs 07/27/23 ([facility]) Allergies Allergy/AdvReac Type Severity Reaction Status Date / Time No Known Allergies Allergy Verified 07/27/23 22:29 Review of Systems Review of Systems: Constitutional : No Weight loss, No Fever, No Chills, No Night Sweats, No Fatigue, No Malaise ENT/Mouth : No Hearing loss, No Ear Pain, No Sinus Pain, No Hoarseness, No sore throat, complaining of nasal congestion and rhinorrhea, No Swallowing Difficulty Eyes: No Eye Pain, No Swelling, No Redness, No Foreign Body, No Discharge, No Vision Changes Cardiovascular : No Chest Pain, No SOB, No Dyspnea on Exertion, No Orthopnea, No Edema, No Palpitations Respiratory : No Cough, No Sputum, No Wheezing, No Smoke Exposure, No Dyspnea Gastrointestinal : No Nausea, No Vomiting, No Diarrhea, No Constipation, No abdominal Pain, No Hematochezia, No Melena Genitourinary : no irregular bleeding, No Dysuria, No Urinary Frequency, No Hematuria, No Urinary Incontinence, No Urgency, No Flank Pain, No Urinary Flow Changes, No Hesitancy Musculoskeletal : No joint pain, No Myalgias, No Joint Swelling Skin : Complaining of an acute on chronic wound/ulcer of the foot on the right heel Neuro : No Weakness, No Numbness, No Paresthesias, No Loss of Consciousness, No Dizziness, No Headache Psych : No Anxiety/Panic, No Depression, No SI/HI/AH/VH, No Social Issues, Heme/Lymph: No Bruising, No Bleeding,No Lymphadenopathy Endocrine : No Polyuria, No Polydipsia, No Temperature Intolerance [facility] Past Medical History Medical History Epidermal cyst Epidermal inclusion cyst PTSD (post-traumatic stress disorder) Surgical History History of excision of epidermal inclusion cyst (~01/09/22) Social History Social History Alcohol intake: never Current occupational status: unemployed Current occupation: rt handed Physical Exam Vital Signs: Vital Signs: Last Vital Signs Temp 97.9 F 07/27/23 22:25 Pulse 80 07/27/23 22:25 Resp 18 07/27/23 22:25 BP 130/82 07/27/23 22:25 Pulse Ox 97 07/27/23 22:25 O2 Del Method Room Air 07/27/23 22:25 BMI result Body Mass Index 39.6 Const: Other: Appearance: Alert. Oriented X3. No acute distress. Eyes: Pupils equal, round and reactive to light. ENT: Pharynx normal. Neck: Normal inspection. Neck supple. No lymph nodes noted. No crepitus CVS: Normal heart rate and rhythm. Pulses normal. Normal S1 and S2 Respiratory: No respiratory distress. Breath sounds normal. No Wheezing. No rales Abdomen: Soft and nontender. No rigidity. No distention. Skin: Skin warm and dry. Normal skin color. 2 cm x 2 cm ulcer in the heel of the right foot laterally, questionably mild cellulitis, early stages. Extremities: No lower extremity edema. No Lacerations. No Rash Neuro: Oriented X 3. No motor deficit. No sensory deficit. Moving all extremities. No slurred speech. CN 2 through 12 grossly intact Psych: calm, cooperative, normal affect Medical Decision Making Medical Decision Making MDM Narrative: -I discussed the physical exam with the patient. We will go ahead and order antibiotics. -patient has had this ulcer in the foot on and off for several years, discussed with the patient that he would benefit from a consult with the wound clinic, patient agreeable -also, patient complaining of congestion, patient taking fluticasone with no relief Differential Diagnosis Differential Diagnoses: The differential diagnosis associated with the presentation includes (Cellulitis, foot ulcer, callus) Discharge Plan Discharge Clinical Impression: Foot ulcer, Congested nose Patient Disposition: Home, Self-Care Instructions: Chronic Wounds (ED) Additional Instructions: Please follow-up with your primary care physician tomorrow. If you have any worsening or new symptoms, please return to the emergency room or call 911 Prescriptions: New cephalexin 500 mg capsule 500 mg PO Q12H Qty: 14 0RF fexofenadine [[facility]] 180 mg tablet 180 mg PO DAILY Qty: 20 0RF No Action celecoxib 200 mg capsule 200 mg PO BID Qty: 60 3RF ibuprofen 600 mg tablet 600 mg PO Q6H PRN (Reason: pain) Qty: 60 0RF ketorolac 10 mg tablet 10 mg PO Q6H PRN (Reason: pain) 5 Days Qty: 20 0RF Rx Instructions: Patient received Toradol in the ER. Instructed patient to stop taking ibuprofen. ibuprofen 800 mg tablet 800 mg PO Q8H PRN (Reason: pain) Qty: 14 0RF lidocaine [Lidoderm] 5 % adhesive patch,medicated 1 patch topical DAILY MDD remove after 12 hours PRN (Reason: pain) Qty: 30 0RF Rx Instructions: leave on most painful area for up to 12 hrs bacitracin 500 unit/gram ointment 1 appl topical BID Qty: 30 1RF oxycodone-acetaminophen [Percocet] 7.5-325 mg tablet 1 tab PO Q6H PRN (Reason: pain, severe) 3 Days Qty: 9 0RF Rx Instructions: Patient may request partial fill amoxicillin-pot clavulanate [Augmentin] 500-125 mg tablet 1 tab PO BID Qty: 19 0RF ibuprofen 600 mg tablet 600 mg PO QID PRN (Reason: fever or pain) Qty: 14 0RF sertraline 100 mg tablet 200 mg PO DAILY risperidone 1 mg tablet PO alprazolam 0.5 mg tablet 0.5 mg PO DAILY PRN risperidone 2 mg tablet 2 mg PO BEDTIME trazodone 100 mg tablet [id number] mg PO BEDTIME PRN Referrals: Julia Aranda MD [Physician] - 07/28/23
[2023-07-27] MEDS: cephALEXin 500 MG CAPSULE PO (23:52)
[2023-07-27 23:56] VITALS: BP 141/84; PULSE 77; RESP 16; TEMP 36.7; O2SAT 98
== END 2023-07-27 23:56 | disposition home or self-care (01) ==
PROVIDERS: Emergency Provider Emergency Medicine; PCP Registered Nurse
DX: L97.519 Non-pressure chronic ulcer of other part of right foot with unspecified severity (principal); R09.81 Nasal congestion; Z79.899 Other long term (current) drug therapy
CPT/HCPCS: 99283

== ENCOUNTER 2024-01-11 15:10 | Outpatient (AMB) | payer MEDICAID, SELFPAY ==
--- NOTE | 2024-01-11 15:18 | A.OFFVIS_ITS ---
Intake Vital Signs 01/11/24 15:18 Height 6 ft 2 in Intake Visit Reasons: Cyst on back Intake Note: This patient presents for an assessment for back cyst. Patient c/o; reports has been having this back cyst for several years, reports no pain. Data Analysis Manager Required: No Accompanied by: Self / Same As Patient Allergies No Known Allergies Allergy (Verified 01/11/24 15:22) Medication List - Last Reconciled 01/11/24 by Jeanmarie Van MD alprazolam 0.5 mg PO DAILY PRN amoxicillin-pot clavulanate 500-125 mg (Augmentin) 1 tab PO BID bacitracin 1 appl topical BID celecoxib 200 mg PO BID cephalexin 500 mg PO Q12H fexofenadine ([facility]) 180 mg PO DAILY ibuprofen 600 mg PO Q6H PRN ibuprofen 800 mg PO Q8H PRN ibuprofen 600 mg PO QID PRN ketorolac 10 mg PO Q6H PRN 5 days lidocaine 5% (Lidoderm) 1 patch topical DAILY PRN MDD remove after 12 hours oxycodone-acetaminophen 7.5-325 mg (Percocet) 1 tab PO Q6H PRN 3 days risperidone 2 mg PO BEDTIME risperidone mg PO sertraline 200 mg PO DAILY trazodone [id number] mg PO BEDTIME PRN HPI Cyst on back HPI Details 43-year-old male referred for a pilonida l cyst. He describes an area of recurrent drainage and swelling on the sacrococcygeal aspect. He actually had excision of a pilonidal cyst in the same area in 2013. However, for about the past 5 years, he has been noticing some drainage and swelling although this started small. He says that this has been bothering her more the past few months. He also has been gaining some weight. He says that he is on antidepressants and this causes him to gain weight. He feels healthy otherwise. [facility] Medical History (Updated 01/11/24 @ 15:35 by Jeanmarie Van MD) Morbid obesity Sacrococcygeal pilonidal cyst Epidermal cyst Epidermal inclusion cyst PTSD (post-traumatic stress disorder) Surgical History History of excision of epidermal inclusion cyst (~01/09/22) Social History Alcohol intake: never Current occupational status: unemployed Current occupation: rt handed Review of Systems Const Denies chills and Denies fever(s) Card Denies chest pain, Denies dyspnea and Denies dyspnea on exertion Resp Denies cough, Denies dyspnea and Denies dyspnea on exertion GI Denies hematochezia and Denies change in bowel habits Denies hematuria and Denies difficulty urinating Musc Denies back pain and Denies limited range of motion Neuro Denies focal weakness and Denies convulsions Psych Denies depression and Denies mood swings Physical Exam Const General: comfortable and no acute distress Orientation/consciousness: patient oriented x3 Neck Neck: Yes no lymphadenopathy Resp Auscultation: clear to auscultation bilaterally Cardio Rhythm: regular rhythm GI Palpation (GI): Soft to palpation, nontender and no guarding Back/Spine/Pelvis Other: A little to the left of the midline in the sacrococcygeal area as an area of induration, about 2 0.5 cm with an open wound, very scanty drainage, consistent with a pilonidal cyst Neuro General: patient oriented x3 Assessment & Plan Assessment & Plan (1) Sacrococcygeal pilonidal cyst: Code(s): L05.91 - Pilonidal cyst without abscess Plan: He is what appears to be a recurrence sacrococcygeal pilonidal cyst. He wants to proceed with excision.I explained to the technique of excision under anesthesia. I reviewed the risks including but not limited to bleeding, poor healing and infections, as well as the benefits and alternatives. He understands and wants to proceed. He has gained weight and is morbidly obese. I advised him on the benefits of weight loss. Coding Level of Care Code Est Pt Level 3 (50147) Diagnoses Sacrococcygeal pilonidal cyst L05.91
== END 2024-01-11 15:37 | disposition home or self-care (01) ==
PROVIDERS: PCP Registered Nurse; Visit Provider Surgery
DX: L05.91 Pilonidal cyst without abscess (principal)
CPT/HCPCS: 99214

== ENCOUNTER → 2024-01-11 15:10 | Outpatient (BNVA) | payer MEDICAID, SELFPAY | PROVIDERS: PCP Registered Nurse; Visit Provider Surgery | DX: L05.91 Pilonidal cyst without abscess (principal) | CPT/HCPCS: 99212 ==

== ENCOUNTER 2024-02-02 05:38 | Day surgery (SDC) | payer MEDICAID, SELFPAY ==
--- NOTE | 2024-01-29 15:18 | HO.ANESPROP2 ---
Documented by User: Nessa Bourne NP 01/29/24 15:19 HPI - Anesthesia Eval Consult details Narrative: 43yo M for Excision Pilonidal Cyst Sacroccygeal Area PMFSH Active Problems Active Problems: All Active Problems (Updated 01/11/24 @ 15:35 by Jeanmarie Van MD) Left elbow fracture (Acute) Right clavicle fracture (Acute) Infrapatellar bursitis of right knee (Acute) Osteoarthritis of right knee (Acute) Knee pain (Acute) Morbid obesity (Acute) Sacrococcygeal pilonidal cyst (Acute) Epidermal cyst (Acute) Epidermal inclusion cyst (Acute) Past Medical History Medical History Morbid obesity Sacrococcygeal pilonidal cyst Epidermal cyst Epidermal inclusion cyst PTSD (post-traumatic stress disorder) Surgical History Surgical History History of open reduction and internal fixation (ORIF) procedure History of surgical removal of pilonidal cyst History of excision of epidermal inclusion cyst (~01/09/22) Social History Social History Alcohol intake: never Comment: counts correct Patient Tobacco Use Status: Former Tobacco user Quit Date: 2021 Tobacco use type: Cigarette Years Smoked: 20 Smoked in Last 30 Days: No Use of substances other than those prescribed or required for medical reasons: No Are you DNR?: No Advance Directives: No Advance Directives Information Provided: Yes Current occupational status: unemployed Current occupation: rt handed Meds Allergies Allergy/AdvReac Type Severity Reaction Status Date / Time No Known Allergies Allergy Verified 02/02/24 06:42 Home Medications Medication Instructions Recorded Confirmed Last Taken Type alprazolam 0.5 mg tablet 0.5 mg PO DAILY PRN Anxiety 03/21/21 02/02/24 02/01/24 18:00 History risperidone 2 mg tablet 2 mg PO BEDTIME 03/21/21 02/02/24 Unknown History sertraline 100 mg tablet 200 mg PO DAILY 03/21/21 02/02/24 02/01/24 22:00 History atorvastatin 20 mg tablet 20 mg PO QAM 01/29/24 02/02/24 Unknown History cholecalciferol (vitamin D3) 25 25 mcg PO QAM 01/29/24 02/02/24 Unknown History mcg (1,000 unit) tablet Exam Height,Weight and Vital Signs: Height 6 ft 2 in Assessment and Plan Assessment Anesthesia Assessment: Chart Reviewed Documented by User: Mitesh Ruiz MD 02/02/24 08:59 [facility] Past Medical History Medical History Morbid obesity Sacrococcygeal pilonidal cyst Epidermal cyst Epidermal inclusion cyst PTSD (post-traumatic stress disorder) Family History Family history of problems with anesthesia: No Surgical History Surgical History History of open reduction and internal fixation (ORIF) procedure History of surgical removal of pilonidal cyst History of excision of epidermal inclusion cyst (~01/09/22) History of Problems with Anesthesia: No Social History Social History Alcohol intake: never Comment: counts correct Patient Tobacco Use Status: Former Tobacco user Quit Date: 2021 Tobacco use type: Cigarette Years Smoked: 20 Smoked in Last 30 Days: No Use of substances other than those prescribed or required for medical reasons: No Are you DNR?: No Advance Directives: No Advance Directives Information Provided: Yes Current occupational status: unemployed Current occupation: rt handed Meds Allergies Allergy/AdvReac Type Severity Reaction Status Date / Time No Known Allergies Allergy Verified 02/02/24 06:42 Home Medications Medication Instructions Recorded Confirmed Last Taken Type alprazolam 0.5 mg tablet 0.5 mg PO DAILY PRN Anxiety 03/21/21 02/02/24 02/01/24 18:00 History risperidone 2 mg tablet 2 mg PO BEDTIME 03/21/21 02/02/24 Unknown History sertraline 100 mg tablet 200 mg PO DAILY 03/21/21 02/02/24 02/01/24 22:00 History atorvastatin 20 mg tablet 20 mg PO QAM 01/29/24 02/02/24 Unknown History cholecalciferol (vitamin D3) 25 25 mcg PO QAM 01/29/24 02/02/24 Unknown History mcg (1,000 unit) tablet Exam Airway Mallampati Class: IV TM Dist: >3cm Neck ROM: Full Denture: Upper Loose/Missing/Broken Teeth: Yes Heart: [id number] Lungs: cta b/l Assessment and Plan Assessment Anesthesia Assessment: Anesthesia Plan Discussed Final Anesthetic Review Family History of Problems with Anesthesia: No History of Problems with Anesthesia: No NPO: Yes ASA Class: III Final Preanesthetic Review: No Changes in Pt Med Stat, Meds/Allgs Chart Reviewed, Consent Obtained/Reviewed and Anes Risks/Benef Reviewed Patient Risk: Intermediate Procedure Risk: Intermediate Assessment/Block/Sedation in SS: Assess/Block/Sedation-SS Anesthetic Plan Anesthetic Plan: GA Disposition: Standard PACU
[2024-02-02] VITALS (10 sets, daily range): BP systolic 108–146; BP diastolic 60–86; PULSE 84–96; RESP 16–20; TEMP 36.6–36.8; O2SAT 90–97; BMI 42.7
[2024-02-02] MEDS: Lactated Ringers 1,000 ML 100 ML IVCONT (07:10)
--- NOTE | 2024-02-02 07:24 | MHC.SHP ---
Pre-Procedural Eval Section A - 24 Hr Update-Section A only Date of Service: 02/02/24 The patient is an INPATIENT: No Changes since office visit: No Cold of Flu in the past 2 weeks, No New Medical Problems, No Changes in Medication and No Patient answered all questions The patient has been examined within 24 hours of the surgical procedure. The History & Physical has been completed within 30 days and I have reviewed it.: Yes Section B - Complete if H&P > 30 days Chief Complaint: Pilonidal cyst without abscess Allergies: Allergies Allergy/AdvReac Type Severity Reaction Status Date / Time No Known Allergies Allergy Verified 02/02/24 06:42 Plan I have reviewed the history and physical and performed a pertinent physical examination on my patient. No changes have occurred unless specified. Time Spent With Patient Time: Total time managing care of this patient today ____ minutes.
--- NOTE | 2024-02-02 08:54 | P.OP_ITS ---
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 He understood the technique of the planned procedure as well as the risks, benefits, and alternatives. He was brought to the operating room. He was placed in prone position under general anesthesia via endotracheal tube. The buttocks were retracted with wide tape laterally. The perianal area was prepped and draped in the usual sterile fashion. A surgical time-out was done. The patient received cefazolin 2 g IV preoperatively There was note of an induration in the sacrococcygeal area with note of midline pits and an open sinus within the middle itself. The more indurated area was with the left of the midline. I marked my planned line of incision. I infiltrated the area with lidocaine 1%. I made an elliptical incision using blade 15. This was carried down with electrocautery through the full-thickness of the skin and subcutaneous fat. There was note of a lot of indurated fibrotic tissue from his previous surgery. We did a wide excision of the entire indurated area to make sure that we included all diseased skin and subcutaneous tissue. This was sent as a specimen The excised area was about 9 cm long by about the cm wide. I undermined thick subcutaneous tissue to create flaps and allow closure without tension. I used electrocautery to achieve hemostasis. Once hemostasis was confirmed, I copiously irrigated. I reapposed the subcutaneous tissue with multiple Polysorb 2-0 interrupted sutures. Again, there was note of indurated and fibrotic subcutaneous fat from his previous surgery. I reapposed the skin with vertical mattress sutures using nylon 3-0, alternating with interrupted sutures I infiltrated the area with Marcaine 0.5% for postop analgesia. Dressings were applied. The procedure was completed The patient tolerated the procedure well. There were no immediate complications. Initial and final counts of sponges and instruments were correct. Estimated blood loss was about 40 cc The patient was extubated without difficulty and transferred to the recovery room with stable vital signs.
== END 2024-02-02 11:07 | disposition home or self-care (01) ==
PROVIDERS: PCP Nurse Practitioner Family; Visit Provider Surgery
PROC: (CPT 11771; principal; 2024-02-02 07:30)
DX: L05.91 Pilonidal cyst without abscess (principal); E66.01 Morbid (severe) obesity due to excess calories; F43.10 Post-traumatic stress disorder, unspecified; Z79.899 Other long term (current) drug therapy; Z98.890 Other specified postprocedural states; Z87.891 Personal history of nicotine dependence
CPT/HCPCS: 11771; 88304; J0665; J0690; J1100; J1170; J1885; J2250; J2405; J2704; J3010

== ENCOUNTER → 2024-02-02 05:38 | Outpatient (BNV) | payer MEDICAID, SELFPAY | PROVIDERS: PCP Nurse Practitioner Family; Visit Provider Surgery | DX: L05.91 Pilonidal cyst without abscess (principal) | CPT/HCPCS: 11771 ==

== ENCOUNTER 2024-02-15 12:29 | Outpatient (AMB) | payer MEDICAID, SELFPAY ==
[2024-02-15 12:39] VITALS: BP 152/77; PULSE 84; BMI 42.0
--- NOTE | 2024-02-15 12:39 | A.OFFVIS_ITS ---
Intake Vital Signs 02/15/24 12:39 Height 6 ft 2 in Weight 327 lb 6 oz BMI 42.0 BP 152/77 H Blood Pressure Location Lt brachial Position Sitting Pulse 84 Intake Visit Reasons: S/P excision pilonidal cyst Intake Note: Patient is seen in office for post op assessment post excision of pilonidal cyst. 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 He tolerated procedure well. He currently denies significant complaints although he says that feels that 2 stitches have ripped off. [facility] Medical History Morbid obesity Sacrococcygeal pilonidal cyst Epidermal cyst Epidermal inclusion cyst PTSD (post-traumatic stress disorder) Surgical History History of open reduction and internal fixation (ORIF) procedure History of surgical removal of pilonidal cyst History of excision of epidermal inclusion cyst (~01/09/22) Social History Alcohol intake: never Patient Tobacco Use Status: Former Tobacco user Quit Date: 2021 Tobacco use type: Cigarette Years Smoked: 20 Current occupational status: unemployed Current occupation: rt handed Review of Systems Const Denies chills and Denies fever(s) Card Denies chest pain, Denies dyspnea and Denies dyspnea on exertion Resp Denies cough, Denies dyspnea and Denies dyspnea on exertion GI Denies hematochezia and Denies change in bowel habits Denies hematuria and Denies difficulty urinating Musc Denies back pain and Denies limited range of motion Neuro Denies focal weakness and Denies convulsions Psych Denies depression and Denies mood swings Physical Exam Vital Signs: Last Vital Signs Pulse 84 02/15/24 12:39 BP 152/77 H 02/15/24 12:39 BMI result Body Mass Index 42.0 Const General: comfortable and no acute distress Resp Effort & Inspection: normal respiratory effort Back/Spine/Pelvis Other: Excision site with some skin separation, no pus, no cellulitis, clean base Assessment & Plan Assessment & Plan (1) Sacrococcygeal pilonidal cyst: Code(s): L05.91 - Pilonidal cyst without abscess Plan: Status post excision. I removed some sutures but I had to leave a few of the sutures in as there was note of some skin separation. The wound itself is clean I explained to him that I expect this to regranulate and eventually reepithelialize. I changes dressings and I told him to continue to do good wound care. I will see him again in the office next week and hopefully we can remove all his sutures by then. Coding Level of Care Code Global (60505) Diagnoses Sacrococcygeal pilonidal cyst L05.91
== END 2024-02-15 13:30 | disposition home or self-care (01) ==
PROVIDERS: PCP Registered Nurse; Visit Provider Surgery
DX: L05.91 Pilonidal cyst without abscess (principal)
CPT/HCPCS: 99024

== ENCOUNTER → 2024-02-15 12:29 | Outpatient (BNVA) | payer MEDICAID, SELFPAY | PROVIDERS: PCP Registered Nurse; Visit Provider Surgery | DX: L05.91 Pilonidal cyst without abscess (principal) | CPT/HCPCS: 99212 ==

== ENCOUNTER 2024-02-24 08:57 | Outpatient (AMB) | payer MEDICAID, SELFPAY ==
[2024-02-24 09:20] VITALS: BMI 42.0
--- NOTE | 2024-02-24 09:20 | A.OFFVIS_ITS ---
Intake Vital Signs 02/24/24 09:20 Height 6 ft 2 in Weight 327 lb 6.007 oz BMI 42.0 Intake Visit Reasons: S/P excision pilonidal cyst, suture removal Intake Note: This patient presents for an assessment for suture removal status post excision pilonidal cyst. Pt c/o; reports wound had open but he bought a wound tape and he feels like it's closing, reports was having drainage. 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 Accompanied by: Self / Same As Patient Allergies No Known Allergies Allergy (Verified 02/24/24 09:25) Medication List - Last Reconciled 02/24/24 by Jeanmarie Van MD alprazolam 0.5 mg PO DAILY PRN atorvastatin 20 mg PO QAM bacitracin 1 appl topical BID celecoxib 200 mg PO BID cholecalciferol (vitamin D3) 25 mcg PO QAM fexofenadine ([facility]) 180 mg PO DAILY lidocaine 5% (Lidoderm) 1 patch topical DAILY PRN MDD remove after 12 hours risperidone 2 mg PO BEDTIME sertraline 200 mg PO DAILY HPI S/P excision pilonidal cyst, suture removal HPI Details He is here for follow-up after excision of a large pilonidal cyst. He describes some drainage from the area as well as skin separation. He otherwise denies other complaints. [facility] Medical History Morbid obesity Sacrococcygeal pilonidal cyst Epidermal cyst Epidermal inclusion cyst PTSD (post-traumatic stress disorder) Surgical History History of open reduction and internal fixation (ORIF) procedure History of surgical removal of pilonidal cyst History of excision of epidermal inclusion cyst (~01/09/22) Social History Alcohol intake: never Patient Tobacco Use Status: Former Tobacco user Quit Date: 2021 Tobacco use type: Cigarette Years Smoked: 20 Current occupational status: unemployed Current occupation: rt handed Review of Systems Const Denies chills and Denies fever(s) Card Denies chest pain, Denies dyspnea and Denies dyspnea on exertion Resp Denies cough, Denies dyspnea and Denies dyspnea on exertion GI Denies hematochezia and Denies change in bowel habits Denies hematuria and Denies difficulty urinating Musc Denies back pain and Denies limited range of motion Neuro Denies focal weakness and Denies convulsions Psych Denies depression and Denies mood swings Physical Exam Vital Signs: BMI result Body Mass Index 42.0 Const General: comfortable and no acute distress Resp Effort & Inspection: normal respiratory effort Back/Spine/Pelvis Other: Excision site with skin separation of the middle, good granulation within, no pus, sutures still in place on the other areas Assessment & Plan Assessment & Plan (1) Sacrococcygeal pilonidal cyst: Code(s): L05.91 - Pilonidal cyst without abscess Plan: Status post excision. I removed all his remaining skin sutures. I instructed him on doing frequent dressing changes because of the presence of skin separation. There was note of good granulation within the cavity so I expect this to heal by secondary intention I will see him again in the office in about 3 weeks. Coding Level of Care Code Global (86311) Diagnoses Sacrococcygeal pilonidal cyst L05.91
== END 2024-02-24 09:45 | disposition home or self-care (01) ==
PROVIDERS: PCP Registered Nurse; Visit Provider Surgery
DX: L05.91 Pilonidal cyst without abscess (principal)
CPT/HCPCS: 99024

== ENCOUNTER → 2024-02-24 08:57 | Outpatient (BNVA) | payer MEDICAID, SELFPAY | PROVIDERS: PCP Registered Nurse; Visit Provider Surgery | DX: L05.91 Pilonidal cyst without abscess (principal); Z48.02 Encounter for removal of sutures | CPT/HCPCS: 99212 ==

== ENCOUNTER 2024-03-16 09:07 | Outpatient (AMB) | payer MEDICAID, SELFPAY ==
--- NOTE | 2024-03-16 09:09 | A.OFFVIS_ITS ---
Intake Vital Signs 03/16/24 09:18 Height 6 ft 2 in Weight 330 lb BMI 42.4 BP 137/68 Blood Pressure Location Rt brachial Position Sitting Pulse 91 Intake Visit Reasons: S/P excision pilonidal cyst, 3 wk follow up Intake Note: This patient presents for a three week follow-up for wound check, s/p excision pilonidal cyst. Pt c/o; reports no complaints at this time. 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 He says that the incision continues to heal and there is less residual open wound. He describes less bloody drainage as well. [facility] Medical History Morbid obesity Sacrococcygeal pilonidal cyst Epidermal cyst Epidermal inclusion cyst PTSD (post-traumatic stress disorder) Surgical History History of open reduction and internal fixation (ORIF) procedure History of surgical removal of pilonidal cyst History of excision of epidermal inclusion cyst (~01/09/22) Social History Alcohol intake: never Patient Tobacco Use Status: Former Tobacco user Quit Date: 2021 Tobacco use type: Cigarette Years Smoked: 20 Current occupational status: unemployed Current occupation: rt handed Review of Systems Const Denies chills and Denies fever(s) Card Denies chest pain, Denies dyspnea and Denies dyspnea on exertion Resp Denies cough, Denies dyspnea and Denies dyspnea on exertion GI Denies hematochezia and Denies change in bowel habits Denies hematuria and Denies difficulty urinating Musc Denies back pain and Denies limited range of motion Neuro Denies focal weakness and Denies convulsions Psych Denies depression and Denies mood swings Physical Exam Vital Signs: Last Vital Signs Pulse 91 03/16/24 09:18 BP 137/68 03/16/24 09:18 BMI result Body Mass Index 42.4 Const Other: Morbidly General: comfortable and no acute distress Back/Spine/Pelvis Other: Excision site on the sacrococcygeal area continues to heal well, with a small residual open wound, granulating well, no inflammation or cellulitis Assessment & Plan Assessment & Plan (1) Sacrococcygeal pilonidal cyst: Code(s): L05.91 - Pilonidal cyst without abscess Plan: Status post excision. His incision continues to heal. I advised him on continuing good wound care. I emphasized to him good hygiene of the area. He can follow up on a p.r.n. basis. Coding Level of Care Code Global (47335) Diagnoses Sacrococcygeal pilonidal cyst L05.91
[2024-03-16 09:18] VITALS: BP 137/68; PULSE 91; BMI 42.4
== END 2024-03-16 10:10 | disposition home or self-care (01) ==
PROVIDERS: PCP Registered Nurse; Visit Provider Surgery
DX: L05.91 Pilonidal cyst without abscess (principal)
CPT/HCPCS: 99024

== ENCOUNTER → 2024-03-16 09:07 | Outpatient (BNVA) | payer MEDICAID, SELFPAY | PROVIDERS: PCP Registered Nurse; Visit Provider Surgery | DX: L05.91 Pilonidal cyst without abscess (principal) | CPT/HCPCS: 99212 ==

== ENCOUNTER 2024-03-28 20:20 | Emergency (ER) | payer MEDICAID, SELFPAY ==
[2024-03-28 21:06] VITALS: BP 137/83; PULSE 72; RESP 19; TEMP 37.2; O2SAT 100; BMI 42.4
[2024-03-28 23:34] VITALS: BP 133/79; PULSE 104; RESP 19; TEMP 37.3; O2SAT 98
--- NOTE | 2024-03-29 01:21 | ED_ITS ---
HPI - Skin/Abscess/Foreign Bdy General Chief complaint: Skin/Abscess/Foreign Body Stated complaint: abscess groin area Time Seen by Provider: 03/29/24 00:12 Source: patient Mode of arrival: ambulatory Limitations: no limitations History of Present Illness HPI narrative: Patient comes to the emergency room complaining of a draining abscess on the right side of the groin. Patient states that couple of days ago he went in her right bike and then he noticed that the right side of the groin was hurting. Patient thought something bit him. Tonight, patient asked his friend to look at the affected areas since he can not reach and see for himself. The patient was informed that there is a red nodule. Patient states that he took a warm bath and came to the emergency room. Patient states that while he was waiting in the ED waiting room, patient's sat down and it popped by itself. Related Data Home Medications ?Medication ?Instructions ?Recorded ?Confirmed alprazolam 0.5 mg tablet 0.5 mg PO DAILY PRN Anxiety 03/21/21 02/24/24 risperidone 2 mg tablet 2 mg PO BEDTIME 03/21/21 02/24/24 sertraline 100 mg tablet 200 mg PO DAILY 03/21/21 02/24/24 atorvastatin 20 mg tablet 20 mg PO QAM 01/29/24 02/24/24 cholecalciferol (vitamin D3) 25 25 mcg PO QAM 01/29/24 02/24/24 mcg (1,000 unit) tablet Previous Rx's ?Medication ?Instructions ?Recorded bacitracin 500 unit/gram topical 1 appl topical BID #30 grams 04/29/22 ointment lidocaine 5 % topical patch 1 patch topical DAILY PRN pain #30 04/29/22 (Lidoderm) ea celecoxib 200 mg capsule 200 mg PO BID #60 caps 02/10/23 fexofenadine 180 mg tablet 180 mg PO DAILY #20 tabs 07/27/23 ([facility]) ibuprofen 600 mg tablet 600 mg PO TID PRN fever or pain 03/29/24 #14 tabs sulfamethoxazole 800 1 tab PO BID #20 tabs 03/29/24 mg-trimethoprim 160 mg tablet (Bactrim DS) Allergies Allergy/AdvReac Type Severity Reaction Status Date / Time No Known Allergies Allergy Verified 03/28/24 21:09 Review of Systems Review of Systems: Constitutional : No Weight loss, No Fever, No Chills, No Night Sweats, No Fatigue, No Malaise ENT/Mouth : No Hearing loss, No Ear Pain, No Nasal Congestion, No Sinus Pain, No Hoarseness, No sore throat, No Rhinorrhea, No Swallowing Difficulty Eyes: No Eye Pain, No Swelling, No Redness, No Foreign Body, No Discharge, No Vision Changes Cardiovascular : No Chest Pain, No SOB, No Dyspnea on Exertion, No Orthopnea, No Edema, No Palpitations Respiratory : No Cough, No Sputum, No Wheezing, No Smoke Exposure, No Dyspnea Gastrointestinal : No Nausea, No Vomiting, No Diarrhea, No Constipation, No abdominal Pain, No Hematochezia, No Melena Genitourinary : no irregular bleeding, No Dysuria, No Urinary Frequency, No Hematuria, No Urinary Incontinence, No Urgency, No Flank Pain, No Urinary Flow Changes, No Hesitancy Musculoskeletal : No joint pain, No Myalgias, No Joint Swelling Skin : Complaining of an inguinal abscess on the right Neuro : No Weakness, No Numbness, No Paresthesias, No Loss of Consciousness, No Dizziness, No Headache Psych : No Anxiety/Panic, No Depression, No SI/HI/AH/VH, No Social Issues, Heme/Lymph: No Bruising, No Bleeding,No Lymphadenopathy Endocrine : No Polyuria, No Polydipsia, No Temperature Intolerance [facility] Past Medical History Medical History Morbid obesity Sacrococcygeal pilonidal cyst Epidermal cyst Epidermal inclusion cyst PTSD (post-traumatic stress disorder) Surgical History History of open reduction and internal fixation (ORIF) procedure History of surgical removal of pilonidal cyst History of excision of epidermal inclusion cyst (~01/09/22) Social History Social History Alcohol intake: never Patient Tobacco Use Status: Former Tobacco user Quit Date: 2021 Tobacco use type: Cigarette Years Smoked: 20 Advance Directives: No Advance Directives Information Provided: Yes Do you have a plan to hurt others: No Plan Current occupational status: unemployed Current occupation: rt handed Physical Exam Vital Signs: Vital Signs: Last Vital Signs Temp 99.1 F 03/28/24 23:34 Pulse 104 H 03/28/24 23:34 Resp 19 03/28/24 23:34 BP 133/79 03/28/24 23:34 Pulse Ox 98 03/28/24 23:34 O2 Del Method Room Air 03/28/24 23:34 BMI result Body Mass Index 42.4 Const: Other: Appearance: Alert. Oriented X3. No acute distress. Eyes: Pupils equal, round and reactive to light. ENT: Pharynx normal. Neck: Normal inspection. Neck supple. No lymph nodes noted. No crepitus CVS: Normal heart rate and rhythm. Pulses normal. Normal S1 and S2 Respiratory: No respiratory distress. Breath sounds normal. No Wheezing. No rales Abdomen: Soft and nontender. No rigidity. No distention. : Patient has a three mm foramen in the right inguinal/scrotal area. It is actively draining pus, no cellulitis Skin: Skin warm and dry. Normal skin color. Normal skin turgor. Extremities: No lower extremity edema. No Lacerations. No Rash Neuro: Oriented X 3. No motor deficit. No sensory deficit. Moving all extremi ties. No slurred speech. CN 2 through 12 grossly intact Psych: calm, cooperative, normal affect Course Course Course Narrative: -digital pressure was applied around the foramen scrotum, perineum, or blood and pus was expressed until it stopped. Patient states that now he almost feels no pain. -patient was given the 1st dose of p.o. antibiotics in the ED, double strength Bactrim. -it was considered inserting packing. However, the foramen is too small for packing insertion. I discussed with the patient that we can numb the area and open it more and insert packing. However, patient states that he would prefer to leave it draining by itself, he will have it checked within the next 24-48 hours, either here or go to a walk-in clinic and make sure it has not getting worse. Patient agreeable with p.o. antibiotic treatment. Medical Decision Making Medical Decision Making [facility] Narrative: -patient does have a draining abscess. The abscess opened up by itself. With pressure I drained approximately 10 cc of pus. -patient declined packing at this time, patient states that he will have close follow-up with the walk-in clinic, urgent care or come here in the emergency room the next 24 hours. -at this time, Hannah gangrene is not suspected. Patient was given a dose of antibiotic here in the ED, Bactrim double strength. Differential Diagnosis Differential Diagnoses: The differential diagnosis associated with the presentation includes (As above) Discharge Plan Discharge Clinical Impression: Abscess of skin or subcutaneous tissue Patient Disposition: Home, Self-Care Instructions: Abscess (ED), Abscess Follow-up (ED) Additional Instructions: Please follow-up with your primary care physician tomorrow. If you have any worsening or new symptoms, please return to the emergency room or call 911 Prescriptions: New sulfamethoxazole-trimethoprim [Bactrim DS] 800-160 mg tablet 1 tab PO BID Qty: 20 0RF ibuprofen 600 mg tablet 600 mg PO TID PRN (Reason: fever or pain) Qty: 14 0RF No Action celecoxib 200 mg capsule 200 mg PO BID Qty: 60 3RF lidocaine [Lidoderm] 5 % adhesive patch,medicated 1 patch topical DAILY MDD remove after 12 hours PRN (Reason: pain) Qty: 30 0RF Rx Instructions: leave on most painful area for up to 12 hrs bacitracin 500 unit/gram ointment 1 appl topical BID Qty: 30 1RF fexofenadine [[facility] Allergy] 180 mg tablet 180 mg PO DAILY Qty: 20 0RF atorvastatin 20 mg tablet 20 mg PO QAM cholecalciferol (vitamin D3) 25 mcg (1,000 unit) tablet 25 mcg PO QAM sertraline 100 mg tablet 200 mg PO DAILY alprazolam 0.5 mg tablet 0.5 mg PO DAILY PRN (Reason: Anxiety) risperidone 2 mg tablet 2 mg PO BEDTIME Print Language: Bengali
[2024-03-29] MEDS: Ibuprofen 600 MG TABLET PO (01:48)
[2024-03-29] MEDS: Sulfamethox/Trimeth 800/160 TABLET 1 TAB PO (01:48)
[2024-03-29 01:50] VITALS: BP 0/0; PULSE 0; RESP 0; TEMP 37.5
== END 2024-03-29 01:55 | disposition home or self-care (01) ==
PROVIDERS: Emergency Provider Emergency Medicine; PCP Nurse Practitioner Family
DX: N49.2 Inflammatory disorders of scrotum (principal); Z87.891 Personal history of nicotine dependence; R10.30 Lower abdominal pain, unspecified
CPT/HCPCS: 10060; 99283; 99284

== ENCOUNTER 2024-10-18 13:40 | Outpatient (REF) | payer MEDICAID, SELFPAY ==
[2024-10-18 16:05] LABS: MANUAL DIFF FLAG NO
[2024-10-18 16:26] LABS: Basophils Percent Auto 0.5 % (0-2); Eosinophils Absolute Auto 0.3 X10*3/uL (0.0-0.4); Eosinophils Percent Auto 4.1 % (0-4); Hematocrit 40.1 % (42.0-52.0); Hemoglobin 13.6 g/dl (14.0-18.0); Imm Gran Abs Auto 0.04 X10*3/uL (0.00-0.03); Imm Gran Pct Auto 0.5 % (0.0-0.4); Lymphocytes Absolute Auto 2.4 X10*3/uL (1.2-4.9); Lymphocytes Percent Auto 31.2 % (20-40); Mean Corpuscular HGB Conc 33.9 g/dl (31.0-36.0); Mean Corpuscular Hemoglobin 29.8 pg (27.0-33.0); Mean Corpuscular Volume 87.9 fL (80.0-98.0); Mean Platelet Volume 10.8 fL (9.4-12.4); Monocytes Absolute Auto 0.8 X10*3/uL (0.1-1.2); Monocytes Percent Auto 10.4 % (2-11); Neutrophils Percent Auto 53.3 % (45-73); Platelet Count 240 X10*3/uL (160-400); Red Blood Count 4.56 X10*6/uL (4.60-5.80); White Blood Count 7.6 X10*3/uL (4.8-10.8)
[2024-10-18 18:13] LABS: Alanine Aminotransferase 31 U/L (0-40); Albumin Level 4.1 g/dL (3.5-5.0); Alkaline Phosphatase 76 U/L (39-117); Anion Gap 10 (12-20); Aspartate Amino Transferase 32 U/L (5-37); Bilirubin Total 0.1 mg/dL (0.0-1.0); Blood Urea Nitrogen 13 mg/dL (9-16); Calcium 9.2 mg/dL (8.4-10.2); Carbon Dioxide 25 mmol/L (22-29); Chloride 107 mmol/L (96-108); Cholesterol 162 mg/dL (<200); Estimated Glomerular Filt Rate > 60; Glucose Random 81 mg/dL (60-115); HDL Cholesterol 32 mg/dL (>40); LDL Cholesterol Calculated 74 mg/dL (<100); Potassium 3.9 mmol/L (3.3-5.1); Sodium 138 mmol/L (135-145); Total Protein 8.3 g/dL (6.5-8.0); Triglycerides 283 mg/dL (<150)
[2024-10-19 05:33] LABS: Estimated Average Glucose 111 mg/dL; Hemoglobin A1C 117.9941 umol/L; Hemoglobin A1c % 5.5 % (<6.0); Total Hemoglobin (HGBA1C) 3202.9852 umol/L
== END 2024-10-18 13:41 | disposition home or self-care (01) ==
LOC: HO.HHCL 13:40
PROVIDERS: Visit Provider Nurse Practitioner Family
DX: Z00.00 Encounter for general adult medical examination without abnormal findings (principal); Z13.1 Encounter for screening for diabetes mellitus; E66.813 Obesity, class 3; E66.01 Morbid (severe) obesity due to excess calories; Z68.41 Body mass index [BMI] 40.0-44.9, adult
CPT/HCPCS: 36415; 80053; 80061; 83036; 85025

== ENCOUNTER 2025-01-26 13:17 | Outpatient (AMB) | payer MEDICARE, MEDICAID, SELFPAY ==
[2025-01-26 13:54] VITALS: BMI 41.5
--- NOTE | 2025-01-26 13:54 | MHC.OFFVIS ---
Vital Signs 01/26/25 13:54 Height 6 ft 2 in Weight 323 lb BMI 41.5 Intake Visit Reasons: cyst groin Intake Note: This patient presents for symptomatic cyst of the groin. Pt c/o; reports occasional bleeding, draining. Filling Hand Required: No Accompanied by: Self / Same As Patient Allergies No Known Allergies Allergy (Verified 01/26/25 13:55) Medication List - Last Reconciled 01/26/25 by Jeanmarie Van MD alprazolam 0.5 mg PO DAILY PRN atorvastatin 20 mg PO QAM bacitracin 1 appl topical BID celecoxib 200 mg PO BID cholecalciferol (vitamin D3) 25 mcg PO QAM fexofenadine ([facility] All[facility]) 180 mg PO DAILY hydroxyzine pamoate mg PO BEDTIME ibuprofen 600 mg PO TID PRN lidocaine 5% (Lidoderm) 1 patch topical DAILY PRN MDD remove after 12 hours risperidone 2 mg PO BEDTIME sertraline 200 mg PO DAILY sulfamethoxazole-trimethoprim 800-160 mg (Bactrim DS) 1 tab PO BID HPI HPI cyst groin: Details: 44-year-old male here for recurrent cysts on his right groin. He said that he has had this for several months. This would swell up and drain periodically all the time. He would also describes significant discomfort frequently because of the swelling on these areas Sometimes he says the drainage would be a lot. He even went to the emergency room recently and was given antibiotics because of the swelling. He also has a history of recurrent pilonidal cyst before and has had excisions in the past. [facility] Medical History (Updated 01/26/25 @ 14:45 by Jeanmarie Van MD) Hidradenitis suppurativa Morbid obesity Sacrococcygeal pilonidal cyst Epidermal cyst Epidermal inclusion cyst PTSD (post-traumatic stress disorder) Surgical History History of open reduction and internal fixation (ORIF) procedure History of surgical removal of pilonidal cyst History of excision of epidermal inclusion cyst (~01/09/22) Social History Alcohol intake: never Patient Tobacco Use Status: Former Tobacco user Tobacco use type: Cigarette Years Smoked: 20 Current occupational status: unemployed Current occupation: rt handed Review of Systems Const Denies chills and Denies fever(s) Card Denies chest pain, Denies dyspnea and Denies dyspnea on exertion Resp Denies cough, Denies dyspnea and Denies dyspnea on exertion GI Denies hematochezia and Denies change in bowel habits Denies hematuria and Denies difficulty urinating Musc Denies back pain and Denies limited range of motion Neuro Denies focal weakness and Denies convulsions Psych Denies depression and Denies mood swings Physical Exam Vital Signs: BMI result Body Mass Index 41.5 Const General: comfortable and no acute distress Nutritional Appearance: obese Orientation/consciousness: patient oriented x3 Neck Neck: Yes no lymphadenopathy Resp Auscultation: clear to auscultation bilaterally Cardio Rhythm: regular rhythm GI Other: Right groin with an indurated area about 3 cm with multiple sinuses, scanty drainage, no fluctuance Palpation (GI): Soft to palpation, nontender and no guarding Neuro General: patient oriented x3 Assessment & Plan Assessment & Plan (1) Hidradenitis suppurativa: Code(s): L73.2 - Hidradenitis suppurativa Category: Medical Plan: He has an area of induration with multiple sinuses in the right groin that appears to be consistent with hidradenitis suppurativa. He wants this removed because of recurrent drainage and swelling. I explained the technique of excision under anesthesia. I reviewed the risks including but not limited to bleeding and infections, poor healing, as well as the benefits and alternatives. He understands and wants to proceed. Coding Level of Care Code Est Pt Level 3 (64075) Diagnoses Hidradenitis suppurativa L73.2
--- OUTSIDE RECORDS SUMMARY | 2025-01-26 15:49 | XMS_ITS | Encounter Summary ---
Author Organization [employer] Address [address] [place] [address] [address] [place] [address] Care Team Providers Care Regasification Plant Operator Name Role Phone Cyndi Wilburn NP Primary Care Provider [phone] Reason for Referral * Consultation (Routine) - Canceled Specialty Diagnoses / Procedures Referred By Stepan keys Referred To Contact General Surgery Diagnoses Skin cysts, generalized Cyndi Wilburn NP [address] [place] [address] Phone: tel: fax: Referral ID Status Reason Start Date Expiration Date Visits Requested Visits Authorized [id number] Canceled Specialty Services Required 01/13/2025 01/13/2026 1 1 Encounter Details Date Type Department Care Team (Late st Contact Info) Description 01/13/2025 10:15 AM EST Office Visit [facility] MEDICINE [address] [place], [place] [phone] Cyndi Wilburn NP [address] [place], [place] [phone] Class 3 severe obesity with body mass index (BMI) of 40.0 to 44.9 in adult, unspecified obesity type, unspecified whether serious comorbidity present (CMS/HCC) (Primary Dx); Skin cysts, generalized; Anemia, unspecified type; Pre-diabetes Social History Tobacco Use Types Packs/Day Years Used Date Smoking Tobacco: Former Cigarettes Passive Smoke Exposure: Past Smokeless Tobacco: Never Comments:Smoked for approxim ately 19-20 years, has quit for 2 years Alcohol Use Standard Drinks/Week Comments Never 0 (1 standard drink = 0.6 oz pur e alcohol) Depression Answer Date Recorded Patient Health Questionnaire-9 Score 19 07/22/2024 Patient Health Questionnaire-9 Score 19 07/22/2024 Last PHQ-9: Questionnaire Data Not on file 0 07/22/2024 Housing Stability Answer Date Recorded What is your housing situation today? I have marissa borrero 01/07/[address] you li ve. Do you have problems with any of the following? None of the above 01/07/2024 Food Insecurity Answer Date Recorded Within the past 12 months, y ou worried that your food would run out before you got money to buy more: Never True 01/07/2024 Within the past 12 months,th e food you bought just didn't last and you didn't have enough money to get more: Never True 06/2024 Transportation Answer Date Recorded In the past 12 months, has l ack of transportation kept you from medical appts, meetings, work or from getting things needed for daily living? No 01/07/2024 Utilities Answer Date Recorded In the past 12 months, has t he electric, gas, oil or water company threatened to shut off services in your home? No 01/07/2024 Depression Answer Date Recorded Patient Health Questionnaire-2 Score 4 01/13/2025 Internet Access Answer Date Recorded Internet Access Q1 Yes 01/13/2025 Internet Access Q2 Not on file 01/13/2025 Sex and Gender Information Value Date Recorded Sex Assigned at Male 09/29/2022 10:39 AM EDT Legal Sex Male 10:39 AM EDT Gender Identity Male 09/29/2022 10:39 AM EDT Sexual Orientation Straight 09/29/2022 10 :39 AM EDT documented as of this encounter Last Filed Vital Signs Vital Sign Reading Time Taken Comments Blood Pressure 131/91 01/13/2025 10:16 AM EST Pulse 89 01/13/2025 10:16 AM EST Temperature 35.3 ??C (95.6 ??F) 01/13/2025 10:[address] Respiratory Rate 20 01/13/2025 10:16 AM EST Oxygen Saturation - - Inhaled Oxygen Concentration - - Weight 144 kg (318 lb 6.4 oz) 01/13/2025 10:16 A M EST Height 188 cm (6' 2 ) 01/13/2025 10:16 AM EST Body Mass Index 40.88 01/13/2025 10:16 AM EST documented in this encounter Plan of Treatment Upcoming Encounters Date Type Department Care Team (Late st Contact Info) Description 01/30/2025 10:00 AM EST Clinical Support [facility] DIABETES/NUTRITION [address] [place] [address] [place] [address] Scheduled Orders Name Type Priority Associated Diagnoses Orde r Schedule CBC auto differential Lab Routine Anemia, unspecified type Expected: 01/13/2025 (Approximate), Expires: 01/13/2026 Hemoglobin A1c Lab Routine Class 3 severe obesity with body mass index (BMI) of 40.0 to 44.9 in adult, unspecified obesity type, unspecified whether serious comorbidity present (CMS/HCC) Pre-diabetes Expected: 04/12/2025 (Approximate), Expires: 01/13/2026 Scheduled Referrals Name Type Priority Associated Diagnoses Orde r Schedule Referral to General Surgery Outpatient Referral Routine Skin cysts, generalized Expected: 01/13/2025 (Approximate), Expires: 01/13/2026 documented as of this encounter Visit Diagnoses Diagnosis Class 3 severe obesity with body mass index (BMI) of 40.0 to 44.9 in adult, unspecified obesity type, unspecified whether serious comorbidity present (CMS/HCC)- Primary Skin cysts, generalized Anemia, unspecified type Pre-diabetes Other abnormal glucose documented in this encounter Additional Health Concerns Assessment Noted Time PHQ-9 Depression Total Score: 19 024 10:39 AM EDT documented as of this encounter Care Teams Regasification Plant Operator Relationship Specialty Start Date End Date Cyndi Wilburn NP [address] [place] [address] PCP - General Family Medicine 08/02/24 documented as of this encounter
--- OUTSIDE RECORDS SUMMARY | 2025-01-26 15:49 | XMS_ITS | Encounter Summary ---
Author Organization [employer] Address [address] [facility] [address] [place] [address] Care Team Providers Care Speeder Operator Name Role Phone Cyndi Wilburn NP Primary Care Provider [phone] Reason for Visit * Reason Onset Date Comments Chart prep 01/10/2025 Encounter Details Date Type Department Care Team ([facility] Contact Info) Description 01/10/2025 Telephone [facility] MEDICINE [address] [place], [place] [phone] Sugey Madera [place] Chart prep Social History Tobacco Use Types Packs/Day Years [...] Date Recorded Patient Health Questionnaire-2 Score 4 07/22/2024 Sex and Gender Information Value Date Recorded Sex Assigned at Male 09/29/2022 10:39 AM EDT Legal Sex Male 10:39 AM EDT Gender Identity Male 09/29/2022 10:39 AM EDT Sexual Orientation Straight 09/29/2022 10 :39 AM EDT documented as of this encounter Miscellaneous Notes * Telephone Encounter - Sugey Madera [place] - 01/10/2025 9:44 AM EST Chart Prep Labs: done Images: not applicable Vaccines due: Covid, Flu Referrals: Sleep Med pending appointment on 01/18/25 at 3:45 Pm Screenings: none Overdue care gaps: SDOH, PHQ-9 documented in this encounter Plan of Treatment Upcoming Encounters Date Type Department Care Team (Late st Contact Info) Description 01/30/2025 10:00 AM EST Clinical Support [facility] DIABETES/NUTRITION [address] [place] [address] [place] [address] documented as of this encounter Visit Diagnoses Not on filedocumented in this encounter Additional Health Concerns Assessment Noted Time PHQ-9 Depression Total Score: 19 024 10:39 AM EDT documented as of this encounter Care Teams Speeder Operator Relationship Specialty Start Date End Date Cyndi Wilburn NP [address] [place] [address] PCP - General Family Medicine 08/02/24 documented as of this encounter
--- OUTSIDE RECORDS SUMMARY | 2025-01-26 15:49 | XMS_ITS | Encounter Summary ---
Author Organization [facility] [employer] Address [address] [place] [address] 7[address] [place] [address] Care Team Providers Care Church Supervisor Name Role Phone Erin Castaneda COSMETICS MACHINE OPERATOR Primary Care Provider [phone] Tara Spears PASSENGER BRAKEMAN Primary Care Provider [phone] Tri Anglin COSMETICS MACHINE OPERATOR Primary Care Provider [phone] Cyndi Wilburn PASSENGER BRAKEMAN Primary Care Provider [phone] Reason for Visit * Reason Comments Med Refill Encounter Details Date Type Department Care Team (Late st Contact Info) Description 02/03/2023 Refill [facility] MEDICINE [address] [place], [place] [phone] Erin Castaneda FNP [address] [place] [address] [place] [address] Nasal congestion Social History Tobacco Use Types Packs/Day Years Used Date Smoking Tobacco: Former Cigarettes Smokeless Tobacco: Never Sex and Gender Information Value Date Recorded Sex Assigned at Male 09/29/2022 10:39 AM EDT Legal Sex Male 10:39 AM EDT Gender Identity Male 09/29/2022 10:39 AM EDT Sexual Orientation Straight 09/29/2022 10 :39 AM EDT documented as of this encounter Plan of Treatment Upcoming Encounters Date Type Department Care Team (Late st Contact Info) Description 01/30/2025 10:00 AM EST Clinical Support [facility] DIABETES/NUTRITION [address] [place] [address] [place], [place] [phone] documented as of this encounter Visit Diagnoses Diagnosis Nasal congestion Other diseases of nasal cavity and sinuses documented in this encounter Care Teams Church Supervisor Relationship Specialty Start Date End Date Erin Castaneda FNP PCP - General Family Medicine 02/19/22 09/03/23 Tara Spears NP [address] [place] [address] PCP - General Family Medicine 09/04/23 12/01/23 Tri Anglin FNP [address] [place] [address] PCP - General Family Medicine 12/02/23 08/01/24 Cyndi Wilburn NP [address] [place] [address] PCP - General Family Medicine 08/02/24 documented as of this encounter
--- OUTSIDE RECORDS SUMMARY | 2025-01-26 15:49 | XMS_ITS | Encounter Summary ---
Author Organization [employer] Address [address] [facility] 7t [place] [address] Care Team Providers Care Security Flex Officer Name Role Phone Cyndi Wilburn NP Primary Care Provider [phone] Encounter Details Date Type Department Care Team (Latest Contact Info) Description 12/26/2024 11:30 AM EST Clinical Support [facility] DIABETES/NUTRITION [address] [place], [place] [phone] Hyun Bates [address] [place], [place] [phone] BMI 40.0-44.9, adult (CMS/HCC) (Primary Dx) Social History Tobacco Use Types Packs/Day Years Used Date Smoking Tobacco: Former Cigarettes Passive Smoke Exposure: Past Smokeless Tobacco: Never Comments:Smoked for approxim ately 19-20 years, has quit for 2 years Alcohol Use Standard Drinks/Week Comments Never 0 (1 standard drink = 0.6 oz pur e alcohol) Depression Answer Date Recorded Patient Health Questionnaire-9 Score 07/22/2024 Patient Health Questionnaire-9 Score 19 07/22/2024 [...] Sign Reading Time Taken Comments Blood Pressure - - Pulse - - Temperature - - Respiratory Rate - - Oxygen Saturation - - Inhaled Oxygen Concentration - - Weight 147 kg (323 lb 6.4 oz) 12/28/2024 4:46 PM EST Height 185.4 cm (6' 1 ) 12/28/2024 4:46 PM EST Body Mass Index 42.67 12/28/2024 4:46 PM EST documented in this encounter Progress Notes * Hyun Bates RD - 12/26/2024 11:30 AM EST In Person Visit Medical Diagnosis: Z68.41 BMI 40.0-44.9, adult Anthropometrics: Ht:6' 1 (1.854 m), Wt:323 lb 6.4 oz (147 kg), BMI: Body mass index is 42.67 kg/m??. Assessment: Patient (Pt) accepted nutrition education assessment appointment with RD. RD took Pt's weight. Weight revealed an increase by 13 pounds since the last visit with RD. Pt admitted indulging around the holidays and traveling and eating at different places other than home. Pt reported that he started back following his Tailored made meal plan. RD took 24 hour recall/ typical daily intake from Pt. Intake revealed Pt is skipping lunch. Pt reports that he does this most of the time. At dinner time, Pt is showing to be eating more. Pt told RD that he has been cutting back and working his way towards portion controls. Pt agreed to continue to work on doing his Tailored made meal plan which has the portion controls. Pt did ask RD what he can do when he eats his meals and can't/ feel like he is not digesting his food and fats in the food? RD suggested for Pt to get and take with each meal digestive enzymes for [employer]- Basic. RD went on-line and showed Pt how they looked and where he could get them. Pt told RD that he was so happy to hear that he can take these enzymes and they will help him digest his food/ meals when he eats. A follow up appointment is scheduled in the first week of January 2025. Food Allergies: Didn't say Exercise: Exercise at a gym and at home 5+ days per week Food Intolerance: None mentioned Food Preferences: All meats, fish, eggs, butter, mayonnaise, cheeses, milk, cream, water, coffee, stevia, all vegetables, fresh salads, fruits- all, whole grains, nut butters, yogurts, nuts, EVOO, breads Food Dislikes: Didn't say Frequency of Eating Out/ Restaurant: Not a norm Who Cooks?: Patient How much caffeine?: coffee 2+ cups /day How much sugary beverages?: none Diet History: Breakfast: Salami: 2+ oz. Eg Butter: 2 teaspoons used to cook eggs Coffee: 2 cups Snack: none Lunch: Decafe tea: 1-2 cups Lemon juice: 1/8 cup Honey: 2+ teaspoons Snack: Water: 2+ cups Dinner: Stew: 5-6 cups Snack: Figs: 6-10 each Or Chocolate bar: 3-4 oz. Or Fresh salad: 3+ cups Apple: 3/4 cup Feta cheese: amount not given Sardine: 3-4 oz. In EVOO Water: 1-2+ cups Nutrition Diagnosis: NI- 5.8.3 Inappropriate intake of types of carbohydrates, such as: potatoes, breads, grains- rice to name a few related to food and knowledge deficit as evidence by 24 hour recall/ typical daily intake and BMI >42. Nutrition Intervention: Pt agreed to be following his Tailored made meal plan. While doing so, watching his portion controls like he was doing before the holidays and traveling/ visiting friends and family. Goals: Eat two carbohydrates for breakfast, lunch and dinner Eat one carbohydrate for mid-morning and mid-afternoon snacks Eat a fresh salad > one cup at both lunch and dinner Eat protein and fats as advised in meal plan Drink water as beverage of choice-> 6-8 glasses and/ or Crystal Light/ Sugar free Exercise at least 30 minutes per day Use extra virgin olive oil(EVOO) after cooking on foods-> don't cook with EVOO Monitoring and Evaluation: Indicator Criteria Adherence frequency of eating, portion controls, carbohydrate exchanges, protein intake Weight Loss BMI, exercise routine and frequency Lipid control Lipid panel Provider: Hyun Bates RD, LDN documented in this encounter Plan of Treatment Upcoming Encounters Date Type Department Care Team (Late st Contact Info) Description 01/30/2025 10:00 AM EST Clinical Support [facility] DIABETES/NUTRITION [address] [place] [address] [place] [address] documented as of this encounter Visit Diagnoses Diagnosis BMI 40.0-44.9, adult (CMS/HCC)- Primary documented in this encounter Additional Health Concerns Assessment Noted Time PHQ-9 Depression Total Score: 19 024 10:39 AM EDT documented as of this encounter Care Teams Security Flex Officer Relationship Specialty Start Date End Date Cyndi Wilburn NP [address] [place] [address] PCP - General Family Medicine 08/02/24 documented as of this encounter
--- OUTSIDE RECORDS SUMMARY | 2025-01-26 15:49 | XMS_ITS | Encounter Summary ---
Author Organization [employer] Address [address] [facility] 7t [place] [address] Care Team Providers Care Medical Library Assistant Name Role Phone Cyndi Wilburn NP Primary Care Provider [phone] Reason for Visit * Reason Onset Date Comments Referral 01/26/2025 Encounter Details Date Type Department Care Team ([facility] Contact Info) Description 01/26/2025 Telephone [facility] MEDICINE [address] [place], [place] [phone] Cyndi Wilburn NP [address] [place] [address] Referral Social History Tobacco Use Types Packs/Day Years [...] encounter Miscellaneous Notes * Telephone Encounter - Cyndi Pedroza - 01/26/2025 1:02 PM EST PT was referred to Nutrition but the wrong diagnosis code was put on the referral. Can a new referral be sent with either of the following codes to continue seeing Nutrition. BMI codes are no longer being covered by [employer] for Nutrition. E66.09 E66.01 Thank you! documented in this encounter Plan of Treatment Upcoming Encounters Date Type Department Care Team (Late st Contact Info) Description 01/30/2025 10:00 AM EST Clinical Support [facility] DIABETES/NUTRITION [address] [place] [address] [place] [address] documented as of this encounter Visit Diagnoses Not on filedocumented in this encounter Additional Health Concerns Assessment Noted Time PHQ-9 Depression Total Score: 19 024 10:39 AM EDT documented as of this encounter Care Teams Medical Library Assistant Relationship Specialty Start Date End Date Cyndi Wilburn NP [address] [place] [address] PCP - General Family Medicine 9/3/24 documented as of this encounter
--- OUTSIDE RECORDS SUMMARY | 2025-01-26 15:49 | XMS_ITS | Encounter Summary ---
Author Organization [employer] Address [address] [facility] 7t [place] [address] Care Team Providers Care Advertising Space Clerk Name Role Phone CosmoCyndi TALIA Primary Care Provider [phone] Encounter Details Date Type Department Care Team (Latest Contact Info) Description 01/13/2025 Travel Social History Tobacco Use Types Packs/Day Years [...] Description 01/30/2025 10:00 AM EST Clinical Support [facility] DIABETES/NUTRITION [address] [place] [address] [place] [address] documented as of this encounter Visit Diagnoses Not on filedocumented in this encounter Additional Health Concerns Assessment Noted Time PHQ-9 Depression Total Score: 19 024 10:39 AM EDT documented as of this encounter Care Teams Advertising Space Clerk Relationship Specialty Start Date End Date Cyndi Wilburn NP [address] [place] [address] PCP - General Family Medicine 08/02/24 documented as of this encounter
--- OUTSIDE RECORDS SUMMARY | 2025-01-26 15:49 | XMS_ITS | Encounter Summary ---
Author Organization [employer] Address [address] [place] [address] 7t [place] [address] Care Team Providers Care Health And Safety Coordinator Name Role Phone Erin CastanedaP Primary Care Provider [phone] Tara Spears HAZARDOUS MATERIALS HANDLER Primary Care Provider [phone] Tri Anglin PAN DEVULCANIZER Primary Care Provider [phone] Cyndi Wilburn HAZARDOUS MATERIALS HANDLER Primary Care Provider [phone] Encounter Details Date Type Department Care Team (Late st Contact Info) Description 12/10/2022 Orders Only [facility] MEDICINE [address] [place] [address] Estefania Stafford LPN Social History Tobacco Use Types Packs/Day Years Used Date Smoking Tobacco: Never Assessed Sex and Gender Information Value Date Recorded Sex Assigned at Male 09/29/2022 10:39 AM EDT Legal Sex Male 10:39 AM EDT Gender Identity Male 09/29/2022 10:39 AM EDT Sexual Orientation Straight 09/29/2022 10 :39 AM EDT documented as of this encounter Plan of Treatment Upcoming Encounters Date Type Department Care Team (Late st Contact Info) Description 01/30/2025 10:00 AM EST Clinical Support [facility] DIABETES/NUTRITION [address] [place] [address] [place] [address] documented as of this encounter Visit Diagnoses Not on filedocumented in this encounter Care Teams Health And Safety Coordinator Relationship Specialty Start Date End Date Erin Castaneda FNP PCP - General Family Medicine 02/19/22 09/03/23 Tara Spears NP [address] [place] [address] PCP - General Family Medicine 09/04/23 12/01/23 Tri Anglin FNP [address] [place] [address] PCP - General Family Medicine 12/02/23 08/01/24 Cyndi Wilburn NP [address] [place] [address] PCP - General Family Medicine 08/02/24 documented as of this encounter
--- OUTSIDE RECORDS SUMMARY | 2025-01-26 15:49 | XMS_ITS | Clinical Summary ---
Author Organization [employer] Address [address] [facility] 7t [place] [address] Care Team Providers Care Plating Foreman Name Role Phone Cosmo Cyndi MELGAR Primary Care Provider [phone] Allergies No known active allergies Medications ALPRAZolam (Xanax) 0.5 MG tablet Take 0.5 mg by mouth if needed each day. 2 Active risperiDONE (RisperDAL) 2 MG tablet Take 2 mg by mouth at bedtime. 3 Active sertraline (Zoloft) 100 MG tablet Take 200 mg by mouth in the morning. 3 Active Diclofenac Sodium 1 % gelIndications:Low back pain at multiple sites Apply 2 g topically if needed (muscle pain). 100 g 3 3 Active clindamycin (Clindagel) 1 % gelIndications:Ski n cysts, generalized APPLY TOPICALLY EVERY MORNING 60 g 2 4 Active cholecalciferol (Vitamin D3) 25 MCG (1000 UT) tablet TAKE ONE TABLET BY MOUTH EVERY DAY IN THE MORNING 90 tablet 1 4 Active atorvastatin (Lipitor) 20 MG tabletIndications: Mixed hyperlipidemia Take 1 tablet (20 mg) by mouth Once per day. 90 tablet 1 4 Active fluticasone (Flonase) 50 MCG/ACT nasal sprayIndications:N triston congestion INHALE 1-2 SPRAYS IN EACH NOSTRIL IN THE MORNING. SHAKE GENTLY BEFORE 1ST USE. PRIME PUMP. AFTER USE, CLEAN TIP AND REPLACE CAP 48 g 1 5 Active Active Problems Problem Noted Date Diagnosed Date Anemia 01/13/2025 Pre-diabetes 01/13/2025 Class 3 severe obesity with body mass index (BMI) of 40.0 to 44.9 in adult 10/18/2024 Assessment & Plan (10/18/2024 5:52 PM EST): Pt has met with nutrition, goal to continue these efforts (Exercise bike and less processed foods) over the winter Encounter for screening for diabetes mellitus Assessment & Plan (10/18/2024 1:30 PM EST): Metabolic labs Acute non-recurrent sinusitis 10/18/2024 Assessment & Plan (10/18/2024 1:30 PM EST): Will treat today based on hx and presentation Elevated BP without diagnosis of hypertension Assessment & Plan (10/18/2024 1:30 PM EST): Improved, referral to sleep medicine for possible apnea Assessment & Plan (07/26/2023 8:52 PM EDT): BP elevated today 143/91 Pt has hx of borderline readings in the past WNL at home Encouraged pt to check at home Notify clinic if BP >140/90 at home Followup 3 months or sooner PRN with new PCP Health care maintenance 07/26/2023 Overview (07/26/2023): Routine Health Maintenance:e Immunizations: Tdap 12/06/21; Due Hep B repeat series HIV: non-reactive 12/09/21 Hep C: non-reactive 12/09/21 Hepatitis B: surface antibodies non-reactive 12/09/21; due booster vaccine series; discuss next visit Colonoscopy: start screening age 45 PSA: Not due yet Lung cancer: Pt has had no nicotine replacement therapy since May 2022. Does not meet criteria screening Eye: discuss next visit Dental: May 2021; discuss next visit Assessment & Plan (10/18/2024 1:30 PM EST): Routine labs ordered Mixed hyperlipidemia 07/07/2023 Overview (07/26/2023): Treating with atorvastatin 20 mg daily + low fat diet Last lipid panel: 01/02/23 slightly elevated with LDL 126; non-HDL 152 Assessment & Plan (07/26/2023 8:54 PM EDT): Will check lipid panel again Notify results Refill statin F/u PRN with new PCP Low back pain at multiple sites 06/26/2023 Overview (07/26/2023): [facility] Pending physical therapy Exercise daily Treating with Celebrex 200 mg BID + Voltaren gel Assessment & Plan (07/26/2023 9:01 PM EDT): Encouraged pt to call for physical therapy appt; referral placed Refill meds F/u PRN Anxiety 01/01/2023 Overview (07/26/2023): Stable; [facility] in [place] in person Treating Alprazolam 0.5 mg daily PRN Rx by specialist Risperidone 2 mg nightly Zoloft 100 mg daily Assessment & Plan (07/26/2023 9:00 PM EDT): Continue meds F/u with specialist Depressive disorder 01/01/2023 Overview (07/26/2023): Stable; [facility] in [place] in person Treating Alprazolam 0.5 mg daily PRN Rx by specialist Risperidone 2 mg nightly Zoloft 100 mg daily Assessment & Plan (07/26/2023 8:59 PM EDT): Continue meds F/u with specialist Osteoarthritis of right ankle 01/01/2023 Posttraumatic stress disorder 01/01/2023 Overview (07/26/2023): Stable; [facility] in [place] in person Treating Alprazolam 0.5 mg daily PRN Rx by specialist Risperidone 2 mg nightly Zoloft 100 mg daily Assessment & Plan (07/26/2023 8:59 PM EDT): Continue meds F/u with specialist Skin cysts, generalized 01/01/2023 Assessment & Plan (07/26/2023 8:55 PM EDT): Cysts/acne improving since stopped Trazadone Continue clindagel use Followup 3 months or sooner PRN with dermatology Closed multiple fractures of both upper limbs Resolved Problems Problem Noted Date Diagnosed Date Resolved Date Tobacco dependence syndrome 01/01/2023 10/18/2024 Encounters Date Type Department Care Team Description 01/26/[address] [address] Cyndi Wilburn NP Referral 01/13/2025 10:15 AM EST Office Visit [address] [address] Cyndi Wilburn NP Class 3 severe obesity with body mass index (BMI) of 40.0 to 44.9 in adult, unspecified obesity type, unspecified whether serious comorbidity present ([facility]) (Primary Dx); Skin cysts, generalized; Anemia, unspecified type; Pre-diabetes 01/13/2025 Travel 01/10/[address] [address] [place]y [place] Chart prep 12/26/2024 11:30 AM EST Clinical Support [facility] DIABETES/NUTRITION [address] [place] [address] BMI 40.0-44.9, adult ([facility]) (Primary Dx) 12/26/2024 Travel 12/15/2024 Refill [facility] MEDICINE [address] [place] [address] Tri Anglin FNP Nasal congestion 12/08/[address] [address] Tameka Nagy [place] Recall 11/21/2024 1:00 PM EST Clinical Support [facility] DIABETES/NUTRITION [address] [place] [address] BMI 40.0-44.9, adult (CMS/HCC) (Primary Dx) 11/21/2024 Travel from Last 3 Months Immunizations Name Administration Dates Next Due Hep A, Adult 07/28/2024,01/28/2024 Hep B, adult 07/28/2024,02/25/2024,01/28/2024 Tdap 12/06/2021 Family History Medical History Relation Name Comments Heart attack Father Stroke Father Skin cancer Maternal Grandmother Relation Name Status Comments Father Maternal Grandmother Social History Tobacco Use Types Packs/Day Years Used Date Smoking Tobacco: Former Cigarettes Passive Smoke Exposure: Past Smokeless Tobacco: Never Tobacco Cessation:Counseling Given: Not Answered Comments:Smoked for approximately 19-20 years, has quit for 2 years [...] Orientation Straight 09/29/2022 10 :39 AM EDT Last Filed Vital Signs Vital Sign Reading Time Taken Comments Blood Pressure 131/91 01/13/2025 10:16 AM EST Pulse 89 01/13/2025 10:16 AM EST Temperature 35.3 ??C (95.6 ??F) 01/13/2025 10:[address] Respiratory Rate 20 01/13/2025 10:16 AM EST Oxygen Saturation 99% 10/18/2024 1:03 PM EST Inhaled Oxygen Concentration - - Weight 144 kg (318 lb 6.4 oz) 01/13/2025 10:16 A M EST Height 188 cm (6' 2 ) 01/13/2025 10:16 AM EST Body Mass Index 40.88 01/13/2025 10:16 AM EST Plan of Treatment Upcoming Encounters Date Type Department Care Team (Late st Contact Info) Description 01/30/2025 10:00 AM EST Clinical Support [facility] DIABETES/NUTRITION [address] [place] [address] Hyun Bates, RD [address] [place] [address] Health Maintenance Due Date Last Done Comments Family Planning (PISQ) 1995 COVID-19 Vaccine ( season) 2024 07/16/2021, 06/25/2021 Influenza Vaccine (#1) 2024 Depression Monitoring (PHQ-9) 07/13/2025 01/13/2025, 07/22/2024 Alcohol/Substance Use Screening 01/13/2026 01/13/2025 Depression Screening 01/13/2026 01/13/2025, 07/22/20 24 SDOH Screening 01/13/2026 01/13/2025 Tobacco Screening 01/13/2026 01/13/2025 Lipid Panel 10/18/2029 10/18/2024, 08, 01/02/2023, Additional history exists Zoster Vaccines (1 of 2) 2030 DTaP/Tdap/Td Vaccines (2 - Td or Tdap) 12/06/2031 12/06/2021 RSV Patients and Patients Aged 60 years or older (1 - 1-dose 75+ series) 2055 HIV Screening Completed 12/09/2021 Hepatitis C Screening Completed 12/09/2021 Hepatitis A Vaccines Aged Out 07/28/2024, 01/28/20 24 No longer eligible based on patient's age to complete this topic Hepatitis B Vaccines Completed 07/28/2024, 02/25/2024, 01/28/2024 HIB Vaccines Aged Out No longer eligi ble based on patient's age to complete this topic HPV Vaccines Aged Out No longer eligi ble based on patient's age to complete this topic IPV Vaccines Aged Out No longer eligi ble based on patient's age to complete this topic Meningococcal Vaccine Aged Out No carlos matt eligible based on patient's age to complete this topic Pneumococcal Vaccine: Pediatrics (0 to 5 Years) and At-Risk Patients (6 to 49) Years) Aged Out No longer eligible based on patient's age to complete this topic RSV under 20 months Aged Out No longe r eligible based on patient's age to complete this topic Rotavirus Vaccines Aged Out No longer eligible based on patient's age to complete this topic Procedures Procedure Name Priority Date/Time Associated Diagnosis Comments LIPID PANEL, STANDARD Routine 10/18/2024 1:42 PM EST Class 3 severe obesity with body mass index (BMI) of 40.0 to 44.9 in adult, unspecified obesity type, unspecified whether serious comorbidity present (CMS/HCC) ZZZ HISTORICAL HEPATITIS C AB W/REFL TO HCV RNA, QN, PCR Routine 12/09/2021 9:18 AM EST HIV 1/2 ANTIGEN/ANTIBODY, FOURTH GENERATION W/RFL Routine 12/09/2021 9:18 AM EST from Last 3 Months or Most Recently Relevant to Health Maintenance Results * (ABNORMAL) Lipid Panel, Standard (10/18/2024 1:42 PM EST) Triglycerides 283(H) <150 mg/dL [facility] Comment:Desirable Triglyceri de: less than 150 mg/dLBorderline High Triglyceride 150-199 mg/dLHigh Triglyceride: 200-499 mg/dLVery High Triglyceride: greater than or equal to 5OO mg/dL Cholesterol 162 <200 mg/dL [facility] Comment:Desirable Cholestero l: less than 200 mg/dLBorderline High Cholesterol: 200-239 mg/dLHigh Cholesterol: greater than 239 mg/dL LDL Cholesterol Calculated 74 <100 mg/dL [facility] Comment:Desirable LDL: less than 100 mg/dLNear Optimal/Above Optimal LDL: 110- 129 mg/dLBorderline High LDL: 130-159 mg/dLHigh LDL: 160-189 mg/dLVery High LDL: greater than or equal to 190 mg/dL HDL Cholesterol 32(L) >40 mg/dL [facility] Comment:Desirable HDL: great er than 40 mg/dL Note: This HDL assay may give artificially low results in patients with liver disease. Blood Venous blood specimen / Unknown 10/18/2024 1:42 PM EST 10/18/2024 4:07 PM EST Cyndi Wilburn GREENHOUSE MANAGER LAB BLOOD ORDERABLES Final Resul t [facility] [address] [place] [address] [phone] * HEPATITIS C AB W/REFL TO HCV RNA, QN, PCR (12/09/2021 9:18 AM EST) HEPATITIS C ANTIBODY NON-REACT JONAH NON-REACT JONAH [facility] INDEX 0.09 <1.00 [facility] Comment: ?? HCV antibody was non-reactive. There is no laboratory ?? evidence of HCV infection. ?? In most cases, no further action is required. However, if recent HCV exposure is suspected, a test for HCV RNA (test code 53365) is suggested. ?? For additional information please refer to http://education.Easy Tempo/faq/CWU95d1 (This link is being provided for informational/ educational purposes only.) ?? 12/09/2021 9:18 AM EST us Erin Castaneda COUNTER HOP HISTORICAL/NON ORDERABLE L ABS Final Result Performing Organization Address [facility] de Phone Number [facility] [address] * HIV 1/2 ANTIGEN/ANTIBODY,FOURTH GENERATION W/RFL (12/09/2021 9:18 AM EST) HIV-1/2 ANTIGEN AND ANTIBODIES, 4TH GENERATION W/ REFLEX NON-REACT JONAH NON-REACT JONAH [facility] Comment: HIV-1 antigen and HIV-1/HIV-2 antibodies were not detected. There is no laboratory evidence of HIV infection. ?? PLEASE NOTE: This information has been disclosed to you from records whose confidentiality may be protected by state law. ??If your state requires such protection, then the state law prohibits you from making any further disclosure of the information without the specific written consent of the person to whom it pertains, or as otherwise permitted by law. A general authorization for the release of medical or other information is NOT sufficient for this purpose. ? For additional information please refer to http://education.Easy Tempo/faq/DUN615 (This link is being provided for informational/ educational purposes only.) ? The performance of this assay has not been clinically validated in patients less than 2 years old. ?? 12/09/2021 9:18 AM EST Erin Castaneda COUNTER HOP LAB BLOOD ORDERABLES Final Result Performing Organization Address [facility] Phone Number [facility] [address] from Last 3 Months or Most Recently Relevant to Health Maintenance Insurance MEDICARE [facility] Care Teams Plating Foreman Relationship Specialty Start Date End Date Cyndi Wilburn NP [address] [place] [address] PCP - General Family Medicine 08/02/24
== END 2025-01-26 14:47 | disposition home or self-care (01) ==
PROVIDERS: PCP Nurse Practitioner Family; Visit Provider Surgery
DX: L73.2 Hidradenitis suppurativa (principal)
CPT/HCPCS: 99213

== ENCOUNTER → 2025-01-26 13:17 | Outpatient (BNVA) | payer MEDICAID, SELFPAY | PROVIDERS: PCP Nurse Practitioner Family; Visit Provider Surgery | DX: L73.2 Hidradenitis suppurativa (principal) | CPT/HCPCS: 99212 ==

== ENCOUNTER → 2025-03-03 08:17 | Day surgery (SDC) | payer MEDICARE, MEDICAID, SELFPAY ==
--- OUTSIDE RECORDS SUMMARY | 2025-02-06 09:15 | XMS_ITS | Encounter Summary ---
Author Organization [employer] Address [address] [facility] 7t [place] [address] Care Team Providers Care Transformation Specialist Name Role Phone Cyndi Wilburn NP Primary Care Provider [phone] Reason for Visit * Reason Onset Date Comments May Recall 01/30/2025 Encounter Details Date Type Department Care Team ([facility] Contact Info) Description 01/30/2025 Telephone [facility] MEDICINE [address] [place], [place] [phone] Cyndi Wilburn NP 230 [place], [place] [phone] May Recall Social History Tobacco Use Types Packs/Day Years [...] encounter Miscellaneous Notes * Telephone Encounter - Ellen Cheema MA - 01/30/2025 11:14 AM EST Telephone call to patient to schedule the following recall: Visit type: Office visit Appointment notes: pre-dm/groin cyst Patient agree to appointment on 04/12/25 at 10:15 AM with Cosmo. documented in this encounter Plan of Treatment Upcoming Encounters Date Type Department Care Team (Late st Contact Info) Description 02/27/2025 10:30 AM EDT Clinical Support [facility] DIABETES/NUTRITION [address] [place] [address] [place] [address] 04/12/2025 10:15 AM EDT Office Visit [facility] MEDICINE 230 [place] [address] Cyndi Wilburn NP 230 [place] [address] documented as of this encounter Visit Diagnoses Not on filedocumented in this encounter Additional Health Concerns Assessment Noted Time PHQ-9 Depression Total Score: 19 024 10:39 AM EDT documented as of this encounter Care Teams Transformation Specialist Relationship Specialty Start Date End Date Cyndi Wilburn NP [address] [place] [address] PCP - General Family Medicine 08/02/24 documented as of this encounter
--- OUTSIDE RECORDS SUMMARY | 2025-02-06 09:15 | XMS_ITS | Encounter Summary ---
Author Organization [employer] Address 75 [facility] 7t [place] [address] Care Team Providers Care Front Desk Supervisor Name Role Phone MichaelCyndi dailey TALIA Primary Care Provider [phone] Encounter Details Date Type Department Care Team (Latest Contact Info) Description 01/30/2025 Travel Social History Tobacco Use Types Packs/Day [...] Description 02/27/2025 10:30 AM EDT Clinical Support [facility] DIABETES/NUTRITION 230 [place] [address] [place] [address] 04/12/2025 10:15 AM EDT Office Visit [facility] MEDICINE 230 [place] [address] Cyndi Wilburn NP 230 [place] [address] documented as of this encounter Visit Diagnoses Not on filedocumented in this encounter Additional Health Concerns Assessment Noted Time PHQ-9 Depression Total Score: 19 024 10:39 AM EDT documented as of this encounter Care Teams Front Desk Supervisor Relationship Specialty Start Date End Date Cyndi Wilburn NP 230 [place] [address] PCP - General Family Medicine 08/02/24 documented as of this encounter
--- OUTSIDE RECORDS SUMMARY | 2025-02-06 09:16 | XMS_ITS | Encounter Summary ---
Author Organization [employer] Address [address] [place] [address] 7t [place] [address] Care Team Providers Care Retail Mortgage Banker Name Role Phone Erin Castaneda TREE GIRDLER Primary Care Provider [phone] Tara Spears SEGMENT PRODUCER Primary Care Provider [phone] Tri Anglin TREE GIRDLER Primary Care Provider [phone] Cyndi Wilburn SEGMENT PRODUCER Primary Care Provider [phone] Reason for Visit * Reason Comments Med Refill Encounter Details Date Type Department Care Team (Late st Contact Info) Description 02/03/2023 Refill [facility] MEDICINE 230 [place], [place] [phone] Erin Castaneda FNP [address] [place] [address] [place] [address] Nasal congestion Social History Tobacco Use Types [...] Description 02/27/2025 10:30 AM EDT Clinical Support [facility] DIABETES/NUTRITION 230 [place], [place] [phone] [address] [place], [place] [phone] 04/12/2025 10:15 AM EDT Office Visit [facility] MEDICINE [address] [place] [address] Cyndi Wilburn NP 230 [place] [address] documented as of this encounter Visit Diagnoses Diagnosis Nasal congestion Other diseases of nasal cavity and sinuses documented in this encounter Care Teams Retail Mortgage Banker Relationship Specialty Start Date End Date Erin Castaneda FNP PCP - General Family Medicine 02/19/22 09/03/23 Tara Spears NP 230 [place] [address] PCP - General Family Medicine 09/04/23 12/01/23 Tri Anglin FNP 230 [place] [address] PCP - General Family Medicine 12/02/23 08/01/24 Cyndi Wilburn NP 230 [place] [address] PCP - General Family Medicine 08/02/24 documented as of this encounter
--- OUTSIDE RECORDS SUMMARY | 2025-02-06 09:16 | XMS_ITS | Encounter Summary ---
Author Organization [employer] Address [address] [place] [address] 7t [place] [address] Care Team Providers Care Performance Test Consultant Name Role Phone LeonelErin hyatt Edwige PIPE TURNER Primary Care Provider [phone] Tara Spears NP Primary Care Provider [phone] Tri Anglin PIPE TURNER Primary Care Provider [phone] Cyndi Wilburn SHAFT MECHANIC Primary Care Provider [phone] Encounter Details Date Type Department Care Team (Late st Contact Info) Description 12/10/2022 Orders Only [facility] MEDICINE [address] [place] [phone] Estefania Stafford LPN Social History Tobacco Use [...] Description 02/27/2025 10:30 AM EDT Clinical Support [facility] DIABETES/NUTRITION 230 [place], [place] [phone] [address] [place], [place] [phone] 04/12/2025 10:15 AM EDT Office Visit [facility] MEDICINE [address] [place] [address] [phone] Cyndi Wilburn NP 230 [place] [address] documented as of this encounter Visit Diagnoses Not on filedocumented in this encounter Care Teams Performance Test Consultant Relationship Specialty Start Date End Date Erin Castaneda FNP PCP - General Family Medicine 02/19/22 09/03/23 Tara Spears NP [address] [place] [address] PCP - General Family Medicine 09/04/23 12/01/23 Tri Anglin FNP 230 [place] [address] PCP - General Family Medicine 12/02/23 08/01/24 Cyndi Wilburn NP 230 [place] [address] PCP - General Family Medicine 08/02/24 documented as of this encounter
--- OUTSIDE RECORDS SUMMARY | 2025-02-06 09:16 | XMS_ITS | Clinical Summary ---
Author Organization [employer] Address 75 [facility] 7t [place] [address] Care Team Providers Care Bi Solutions Architect Name Role Phone Cosmo Cyndi MELGAR Primary Care Provider [phone] Allergies No known active allergies Medications ALPRAZolam [...] Active Problems Problem Noted Date Diagnosed Date 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/2025 Anemia 01/13/2025 Pre-diabetes 01/13/2025 Class 3 severe [...] sites 06/26/2023 Overview (07/26/2023): [facility] Exercise daily Treating with Celebrex 200 mg BID + Voltaren gel Assessment & Plan (07/26/2023 9:01 PM EDT): Encouraged pt to call for physical therapy appt; referral placed Refill meds F/u PRN Anxiety 01/01/2023 Overview (07/26/2023): Stable; [facility] in [place] in person Treating Alprazolam 0.5 mg daily PRN Rx by specialist Risperidone 2 mg nightly Zoloft 100 mg daily Assessment & Plan (07/26/2023 9:00 PM EDT): Continue meds F/u with specialist Depressive disorder 01/01/2023 Overview (07/26/2023): Stable; [facility] in [place] in person Treating Alprazolam 0.5 mg daily PRN Rx by specialist Risperidone 2 mg nightly Zoloft 100 mg daily Assessment & Plan (07/26/2023 8:59 PM EDT): Continue meds F/u with specialist Osteoarthritis of right ankle 01/01/2023 Posttraumatic stress disorder 01/01/2023 Overview (07/26/2023): Stable; [facility] in [place] in person Treating Alprazolam 0.5 mg daily [...] Encounters Date Type Department Care Team Description 01/30/[address] [address] Cyndi Wilburn NP May Recall 01/30/2025 Travel 01/26/[address] [address] Cyndi Wilburn NP Referral 01/13/2025 10:15 AM EST Office Visit [address] [address] Cyndi Wilburn NP Class 3 severe obesity with body mass index (BMI) of 40.0 to 44.9 in adult, unspecified obesity type, unspecified whether serious comorbidity present (CMS/[facility]) (Primary Dx); Skin cysts, generalized; Anemia, unspecified type; Pre-diabetes 01/13/2025 Travel 01/10/[address] [address] S[place]y [place] Chart prep 12/26/2024 11:30 AM EST Clinical Support [facility] DIABETES/NUTRITION [address] [place] [address] BMI 40.0-44.9, adult (CMS/HCC) (Primary Dx) 12/26/2024 Travel 12/15/[address] [address] Tri Anglin FNP Nasal congestion 12/08/[address] [address] Tameka Nagy [place] Recall 11/21/2024 1:00 PM EST Clinical Support [facility] DIABETES/NUTRITION 230 [place] [address] BMI 40.0-44.9, adult (CMS/HCC) [...] Description 02/27/2025 10:30 AM EDT Clinical Support [facility] DIABETES/NUTRITION [address] [place] [address] Hyun Bates, LOPEZ 230 [place] [address] 04/12/2025 10:15 AM EDT Office Visit [facility] MEDICINE 230 [place] [address] Cyndi Wilburn NP 230 [place] [address] Health Maintenance Due Date Last Done Comments Family Planning (PISQ) 1995 COVID-19 Vaccine ( season) 2024 07/16/2021, 06/25/2021 Influenza Vaccine (#1) 2024 Depression Monitoring (PHQ-9) 07/13/2025 01/13/2025, 07/22/2024 Alcohol/Substance Use Screening 01/13/2026 01/13/2025 Depression Screening 01/13/2026 01/13/2025, 07/22/20 24 SDOH Screening 01/13/2026 01/13/2025 Tobacco Screening 01/13/2026 01/13/2025 Lipid Panel 10/18/2029 10/18/2024, 08/, 01/02/2023, Additional history exists Zoster Vaccines (1 [...] 1:42 PM EST) Triglycerides 283(H) <150 mg/dL [facility] Comment:Desirable Triglyceri de: less than 150 mg/dLBorderline High Triglyceride 150-199 mg/dLHigh Triglyceride: 200-499 mg/dLVery High Triglyceride: greater than or equal to 5OO mg/dL Cholesterol 162 <200 mg/dL [facility] Comment:Desirable Cholestero l: less than 200 mg/dLBorderline High Cholesterol: 200-239 mg/dLHigh Cholesterol: greater than 239 mg/dL LDL Cholesterol Calculated 74 <100 mg/dL [facility] Comment:Desirable LDL: less than 100 mg/dLNear Optimal/Above Optimal LDL: 110- 129 mg/dLBorderline High LDL: 130-159 mg/dLHigh LDL: 160-189 mg/dLVery High LDL: greater than or equal to 190 mg/dL HDL Cholesterol 32(L) >40 mg/dL [facility] Comment:Desirable HDL: great er than 40 mg/dL Note: This HDL assay may give artificially low results in patients with liver disease. Blood Venous blood specimen / Unknown 10/18/2024 1:42 PM EST 10/18/2024 4:07 PM EST us Cyndi Wilburn PIGMENT PROCESSOR LAB BLOOD ORDERABLES Final Resul t [facility] [address] [place] [address] [phone] * HEPATITIS C AB W/REFL TO HCV RNA, QN, PCR (12/09/2021 9:18 AM EST) HEPATITIS C ANTIBODY NON-REACT JONAH NON-REACT JONAH [facility] INDEX 0.09 <1.00 [facility] Comment: ?? HCV antibody was non-reactive. There is no laboratory ?? evidence of HCV infection. ?? In most cases, no further action is required. However, if recent HCV exposure is suspected, a test for HCV RNA (test code 35406) is suggested. ?? For additional information please refer to http://[employer].Jack Erwin/faq/YRS22u9 (This link is being provided for informational/ educational purposes only.) ?? 12/09/2021 9:18 AM EST Erin Gibbons Leonel WASTE WATER TREATMENT PLANT OPERATOR HISTORICAL/NON ORDERABLE L ABS Final Result Performing Organization Address [facility] Phone Number [facility] [address] * HIV 1/2 ANTIGEN/ANTIBODY,FOURTH GENERATION W/RFL (12/09/2021 9:18 AM EST) Pathologist [facility] HIV-1/2 ANTIGEN AND ANTIBODIES, 4TH GENERATION W/ REFLEX NON-REACT JONAH NON-REACT JONAH [facility] Comment: HIV-1 antigen and HIV-1/HIV-2 [...] ? For additional information please refer to http://[employer].Jack Erwin/faq/IEP770 (This link is being provided for informational/ educational purposes only.) ? The performance of this assay has not been clinically validated in patients less than 2 years old. ?? 12/09/2021 9:18 AM EST Erin Castaneda WASTE WATER TREATMENT PLANT OPERATOR LAB BLOOD ORDERABLES Final Result Performing Organization Address [facility] Phone Number [facility] [address] from Last 3 Months or Most Recently Relevant to Health Maintenance Insurance [place] [phone] [facility] Care Teams Bi Solutions Architect Relationship Specialty Start Date End Date Cyndi Wilburn NP [address] [place] [address] PCP - General Family Medicine 08/02/24
--- OUTSIDE RECORDS SUMMARY | 2025-02-06 09:16 | XMS_ITS | Encounter Summary ---
Author Organization [email or web address] Address 75 [facility] 7t [place] [address] Care Team Providers Care Mathematical Engineer Name Role Phone Cyndi Wilburn NP Primary Care Provider [phone] Reason for Referral * Consultation (Routine) - Authorized Specialty Diagnoses / Procedures Referred By Stepan keys Referred To Contact Nutrition Diagnoses Exogenous obesity Cyndi Wilburn NP 230 [place] [address] Phone: tel: fax: Referral ID Status Reason Start Date Expiration Date Visits Requested Visits Authorized [id number] Authorized Consult and Treat 01/31/2025 01/31/2026 1 1 Reason for Visit * Reason Onset Date Comments Referral 01/26/2025 Encounter Details Date Type Department Care Team ([facility] Contact Info) Description 01/26/2025 Telephone [facility] MEDICINE 230 [place], [place] [phone] Cyndi Wilburn NP 230 [place], [place] [phone] Referral Social History Tobacco Use Types Packs/Day [...] as of this encounter Miscellaneous Notes * Addendum Note - Cyndi Wilburn NP - 01/31/2025 6:45 PM ESTAddended by: CYNDI WILBURN on: 01/31/2025 06:45 PM Modules accepted: Orders * Telephone Encounter - Cyndi Pedroza - [...] Description 02/27/2025 10:30 AM EDT Clinical Support [facility] DIABETES/NUTRITION 230 [place] [address] [place] [address] 04/12/2025 10:15 AM EDT Office Visit [facility] MEDICINE 230 [place] [address] Cyndi Wilburn NP 230 [place] [address] Scheduled Referrals Name Type Priority Associated Diagnoses Orde r Schedule Referral to Nutrition Therapy Outpatient Referral Routine Exogenous obesity Expected: 01/31/2025 (Approximate), Expires: 01/31/2026 documented as of this encounter Visit Diagnoses Diagnosis Exogenous obesity- Primary Obesity, unspecified documented in this encounter Additional Health Concerns Assessment Noted Time PHQ-9 Depression Total Score: 19 024 10:39 AM EDT documented as of this encounter Care Teams Mathematical Engineer Relationship Specialty Start Date End Date Cyndi Wilburn NP 230 [place] [address] PCP - General Family Medicine 08/02/24 documented as of this encounter
--- OUTSIDE RECORDS SUMMARY | 2025-02-06 09:16 | XMS_ITS | Encounter Summary ---
Author Organization [employer] Address [address] [place] [address] 7t [place] [address] Care Team Providers Care Ballet Teacher Name Role Phone Cyndi Wilburn NP Primary Care Provider [phone] Reason for Referral * Consultation (Routine) - Canceled Specialty Diagnoses / Procedures Referred By Stepan keys Referred To Contact General Surgery Diagnoses Skin cysts, generalized Cyndi Wilburn NP 230 [place] [address] Phone: tel: fax: Referral ID Status Reason Start Date Expiration Date Visits Requested Visits Authorized [id number] Canceled Specialty Services Required 01/13/2025 01/13/2026 1 1 Encounter Details Date Type Department Care Team (Late st Contact Info) Description 01/13/2025 10:15 AM EST Office Visit [facility] MEDICINE 230 [place], [place] [phone] Cyndi Wilburn NP 230 [place], [place] [phone] Class 3 severe obesity with body mass [...] Description 02/27/2025 10:30 AM EDT Clinical Support [facility] DIABETES/NUTRITION 230 [place] [address] [place] [address] 04/12/2025 10:15 AM EDT Office Visit [facility] MEDICINE 230 [place], [place] [phone] Cyndi Wilburn NP 230 [place] [address] Scheduled Orders Name Type Priority Associated Diagnoses [...] documented as of this encounter Care Teams Ballet Teacher Relationship Specialty Start Date End Date Cyndi Wilburn NP [address] [place] [address] [phone] PCP - General Family Medicine 08/02/24 documented as of this encounter
--- OUTSIDE RECORDS SUMMARY | 2025-02-06 09:16 | XMS_ITS | Encounter Summary ---
Author Organization [employer] Address 75 [facility] 7t [place] [address] Care Team Providers Care Fuel Efficient Aircraft Designer Name Role Phone Cyndi Wilburn NP Primary Care Provider [phone] Reason for Visit * Reason Onset Date Comments Chart prep 01/10/2025 Encounter Details Date Type Department Care Team ([facility] Contact Info) Description 01/10/2025 Telephone [facility] MEDICINE 230 [place], [place] [phone] Sugey [place] Chart prep Social History [...] 10:30 AM EDT Clinical Support [facility] DIABETES/NUTRITION 230 [place] [address] Hyun Bates, LOPEZ [address] [place] [address] 04/12/2025 10:15 AM EDT Office Visit [facility] MEDICINE 230 [place] [address] Cyndi Wilburn NP [address] [place] [address] documented as of this encounter Visit Diagnoses Not on filedocumented in this encounter Additional Health Concerns Assessment Noted Time PHQ-9 Depression Total Score: 19 024 10:39 AM EDT documented as of this encounter Care Teams Fuel Efficient Aircraft Designer Relationship Specialty Start Date End Date Cyndi Wilburn NP [address] [place] [address] PCP - General Family Medicine 08/02/24 documented as of this encounter
--- OUTSIDE RECORDS SUMMARY | 2025-02-06 09:16 | XMS_ITS | Encounter Summary ---
Author Organization [employer] Address 75 [facility] 7t [place] [address] Care Team Providers Care Hand Bender Name Role Phone MichaelCyndi dailey TALIA Primary Care Provider Encounter Details Date Type Department Care Team [...] Description 02/27/2025 10:30 AM EDT Clinical Support [facility] DIABETES/NUTRITION [address] [place] [address] [place] [address] 04/12/2025 10:15 AM EDT Office Visit [facility] MEDICINE [address] [place] [address] Cyndi Wilburn NP [address] [place] [address] documented as of this encounter Visit Diagnoses Not on filedocumented in this encounter Additional Health Concerns Assessment Noted Time PHQ-9 Depression Total Score: 19 024 10:39 AM EDT documented as of this encounter Care Teams Hand Bender Relationship Specialty Start Date End Date Cyndi Wilburn NP [address] [place] [address] PCP - General Family Medicine 08/02/24 documented as of this encounter
[2025-03-01 10:22] VITALS: BMI 41.5
--- NOTE | 2025-03-01 14:05 | HO.ANESPROP2 ---
HPI - Anesthesia Eval Consult details Narrative: 44yo M for Right Excision Hidradenitis Groin PMFSH Active Problems Active Problems: All Active Problems Hidradenitis suppurativa (Acute) Left elbow fracture (Acute) Right clavicle fracture (Acute) Infrapatellar bursitis of right knee (Acute) Osteoarthritis of right knee (Acute) Knee pain (Acute) Morbid obesity (Acute) Sacrococcygeal pilonidal cyst (Acute) Epidermal cyst (Acute) Epidermal inclusion cyst (Acute) Past Medical History Medical History (Updated 01/26/25 @ 14:45 by Jeanmarie Van MD) Hidradenitis suppurativa Morbid obesity Sacrococcygeal pilonidal cyst Epidermal cyst Epidermal inclusion cyst PTSD (post-traumatic stress disorder) Family History Family history of problems with anesthesia: No Surgical History Surgical History History of open reduction and internal fixation (ORIF) procedure History of surgical removal of pilonidal cyst History of excision of epidermal inclusion cyst (~01/09/22) History of Problems with Anesthesia: No Social History Social History Alcohol intake: never Patient Tobacco Use Status: Former Tobacco user Tobacco use type: Cigarette Years Smoked: 20 Current occupational status: unemployed Current occupation: [employer] Allergies Allergy/AdvReac Type Severity Reaction Status Date / Time No Known Allergies Allergy Verified 01/26/25 13:55 Home Medications ?Medication ?Instructions ?Recorded ?Confirmed ?Last Taken ?Type alprazolam 0.5 mg tablet 0.5 mg PO DAILY PRN Anxiety 03/21/21 01/26/25 02/01/24 18:00 History risperidone 2 mg tablet 2 mg PO BEDTIME 03/21/21 01/26/25 Unknown History sertraline 100 mg tablet 200 mg PO DAILY 03/21/21 01/26/25 02/01/24 22:00 History atorvastatin 20 mg tablet 20 mg PO QAM 01/29/24 01/26/25 Unknown History cholecalciferol (vitamin D3) 25 25 mcg PO QAM 01/29/24 01/26/25 Unknown History mcg (1,000 unit) tablet hydroxyzine pamoate 50 mg capsule mg PO BEDTIME 01/26/25 01/26/25 Unknown History Exam Height,Weight and Vital Signs: Height 6 ft 2 in Weight 146.51 kg Assessment and Plan Assessment Anesthesia Assessment: Chart Reviewed Final Anesthetic Review Family History of Problems with Anesthesia: No History of Problems with Anesthesia: No
== END ==
LOC: HO.SSS 08:18
PROVIDERS: PCP Nurse Practitioner Family; Visit Provider Surgery
DX: L73.2 Hidradenitis suppurativa (principal); Z53.8 Procedure and treatment not carried out for other reasons

== ENCOUNTER 2025-03-24 10:18 | Day surgery (SDC) | payer MEDICARE, MEDICAID, SELFPAY ==
[2025-03-22 08:34] VITALS: BMI 41.5
--- NOTE | 2025-03-23 10:05 | HO.ANESPROP2 ---
Documented by User: Nessa Bourne NP 03/23/25 10:07 HPI - Anesthesia Eval Consult details Narrative: 44yo M for Excision Hidradenitis groin PMFSH Active Problems Active Problems: All Active Problems Hidradenitis suppurativa (Acute) Left elbow fracture (Acute) Right clavicle fracture (Acute) Infrapatellar bursitis of right knee (Acute) Osteoarthritis of right knee (Acute) Knee pain (Acute) Morbid obesity (Acute) Sacrococcygeal pilonidal cyst (Acute) Epidermal cyst (Acute) Epidermal inclusion cyst (Acute) Past Medical History Medical History Hidradenitis suppurativa Morbid obesity Sacrococcygeal pilonidal cyst Epidermal cyst Epidermal inclusion cyst PTSD (post-traumatic stress disorder) Family History Family history of problems with anesthesia: No Surgical History Surgical History History of open reduction and internal fixation (ORIF) procedure History of surgical removal of pilonidal cyst History of excision of epidermal inclusion cyst (~01/09/22) History of Problems with Anesthesia: No Social History Social History Are you a primary healthcare manager to a significant other at home: No Do you presently have visiting nurse or other home services: No Alcohol intake: never Patient Tobacco Use Status: Former Tobacco user Tobacco use type: Cigarette Years Smoked: 20 Use of substances other than those prescribed or required for medical reasons: No Have you been hit, kicked, punched, or otherwise hurt by someone within the past year? If so, by whom?: No Are you DNR?: No Advance Directives: No Advance Directives Information Provided: Yes Poor oral hygiene: No Current occupational status: unemployed Current occupation: rt handed Meds Allergies Allergy/AdvReac Type Severity Reaction Status Date / Time No Known Allergies Allergy Verified 03/24/25 10:32 Home Medications ?Medication ?Instructions ?Recorded ?Confirmed ?Last Taken ?Type alprazolam 0.5 mg tablet 0.5 mg PO DAILY PRN Anxiety 03/21/21 03/24/25 03/24/25 History risperidone 2 mg tablet 2 mg PO BEDTIME 03/21/21 03/24/25 Unknown History sertraline 100 mg tablet 200 mg PO DAILY 03/21/21 03/24/25 02/01/24 22:00 History atorvastatin 20 mg tablet 20 mg PO QAM 01/29/24 03/24/25 Unknown History cholecalciferol (vitamin D3) 25 25 mcg PO QAM 01/29/24 03/24/25 Unknown History mcg (1,000 unit) tablet hydroxyzine pamoate 50 mg capsule mg PO BEDTIME 01/26/25 01/26/25 Unknown History Exam Height,Weight and Vital Signs: Height 6 ft 2 in Weight 146.51 kg Assessment and Plan Assessment Anesthesia Assessment: Chart Reviewed Final Anesthetic Review Family History of Problems with Anesthesia: No History of Problems with Anesthesia: No Documented by User: Kerry Rock MD 03/24/25 12:23 [facility] Past Medical History Medical History Hidradenitis suppurativa Morbid obesity Sacrococcygeal pilonidal cyst Epidermal cyst Epidermal inclusion cyst PTSD (post-traumatic stress disorder) Surgical History Surgical History History of open reduction and internal fixation (ORIF) procedure History of surgical removal of pilonidal cyst History of excision of epidermal inclusion cyst (~01/09/22) Social History Social History Are you a primary healthcare manager to a significant other at home: No Do you presently have visiting nurse or other home services: No Alcohol intake: never Patient Tobacco Use Status: Former Tobacco user Tobacco use type: Cigarette Years Smoked: 20 Use of substances other than those prescribed or required for medical reasons: No Have you been hit, kicked, punched, or otherwise hurt by someone within the past year? If so, by whom?: No Are you DNR?: No Advance Directives: No Advance Directives Information Provided: Yes Poor oral hygiene: No Current occupational status: unemployed Current occupation: rt handed Meds Allergies Allergy/AdvReac Type Severity Reaction Status Date / Time No Known Allergies Allergy Verified 03/24/25 10:32 Home Medications ?Medication ?Instructions ?Recorded ?Confirmed ?Last Taken ?Type alprazolam 0.5 mg tablet 0.5 mg PO DAILY PRN Anxiety 03/21/21 03/24/25 03/24/25 History risperidone 2 mg tablet 2 mg PO BEDTIME 03/21/21 03/24/25 Unknown History sertraline 100 mg tablet 200 mg PO DAILY 03/21/21 03/24/25 02/01/24 22:00 History atorvastatin 20 mg tablet 20 mg PO QAM 01/29/24 03/24/25 Unknown History cholecalciferol (vitamin D3) 25 25 mcg PO QAM 01/29/24 03/24/25 Unknown History mcg (1,000 unit) tablet hydroxyzine pamoate 50 mg capsule mg PO BEDTIME 01/26/25 01/26/25 Unknown History Exam Airway Mallampati Class: III TM Dist: >3cm Neck ROM: Full Denture: Upper Loose/Missing/Broken Teeth: Yes, Upper and Lower Heart: RRR Lungs: CTA Assessment and Plan Assessment Anesthesia Assessment: Anesthesia Plan Discussed Final Anesthetic Review NPO: Yes ASA Class: III Final Preanesthetic Review: Meds/Allgs Chart Reviewed, Consent Obtained/Reviewed and Anes Risks/Benef Reviewed Patient Risk: Intermediate Procedure Risk: Low Anesthetic Plan Anesthetic Plan: GA Disposition: Standard PACU
--- NOTE | 2025-03-24 10:44 | MHC.SHP ---
Pre-Procedural Eval Section A - 24 Hr Update-Section A only Date of Service: 03/24/25 Section B - Complete if H&P > 30 days Chief Complaint: Hidradenitis suppurativa Details of Present Illness: Here for excision of right groin hidradenitis; canceled 2 weeks ago because of coughing Relevant Family History (Specify if Yes): No Relevant Social History: None Present Medications: see Short Stay Collaborative assessment Medical History: Significant History (Morbid obesity , arthritis) History of Previous Operations: Relevant previous surgery/procedure and date(s) (Has previous excisions) Allergies: Allergies Allergy/AdvReac Type Severity Reaction Status Date / Time No Known Allergies Allergy Verified 03/24/25 10:32 Review of Systems Sugical H&P ROS: Negative: Constitution, Cardiovascular and Respiratory Exam Surgical H&P Exam: Normal: Heart, Normal: Lungs and Normal: Abdomen Exam Comment: Area of fibrotic induration, right groin Plan Diagnosis/Plan: Unchanged I have reviewed the history and physical and performed a pertinent physical examination on my patient. No changes have occurred unless specified. Time Spent With Patient Time: Total time managing care of this patient today ____ minutes.
[2025-03-24 11:25] VITALS: BP 124/79; PULSE 76; RESP 14; TEMP 36.8; O2SAT 95; BMI 39.9
[2025-03-24] MEDS: Lactated Ringers 1,000 ML 100 ML IVCONT (11:31)
[2025-03-24] MEDS: ceFAZolin Sodium/Dextrose,Iso 2 GM/50 ML PIGGYBACK IV (12:45)
--- NOTE | 2025-03-24 13:09 | P.OP_ITS ---
Operative Note Operative Note Date of Service: 03/24/25 Narrative: Preop diagnosis: Hidradenitis suppurativa, right groin/perineal area Postop diagnosis: The same Procedure: Excision of hidradenitis, right groin/perineal area Surgeon: Jeanmarie Van MD assistant account manager: HILTON Hunt The patient is a 44-year-old male with note of an area of recurrent swelling, drainage and tenderness on the right perineal area near the groin. This seemed to involve the scrotal skin as well. There were interconnected sinuses consistent with a hidradenitis suppurativa He understood the technique of the planned procedure as well as the risks, benefits, and alternatives He was brought to the operating room. He was placed in frog-leg position under general anesthesia via laryngeal mask airway. The area of the right groin and perineum were prepped and draped in the usual sterile fashion. The scrotum had been retracted away from this area with wide tape. I marked the planned line of incision to make sure that we were including all diseased tissue I infiltrated the area with lidocaine 1%. I made the incision elliptically with a blade 15. This was carried down through the full-thickness of the skin and subcutaneous fat. I used electrocautery to excise all the indurated and diseased subcutaneous layer. There was note of hypergranulation tissue as well which we included with the specimen. The area excised was about 5.5 cm x 3.5 cm. I cauterized oozing areas for hemostasis. I made sure that all hypergranulation tissue were excised or cauterized We copiously irrigated We then closed the incision with full-thickness nylon 3-0 simple interrupted sutures. Dressings were applied. The procedure was completed The patient tolerated the procedure well. There were no immediate complications. Initial and final counts of sponges and instruments were correct . Estimated blood loss about 25 cc. The patient was extubated without difficulty and transferred to the recovery room with stable vital signs.
[2025-03-24 13:15] VITALS: BP 145/90; PULSE 72; RESP 16; TEMP 36.7; O2SAT 95
[2025-03-24 13:20] VITALS: BP 125/76; PULSE 76; RESP 17; O2SAT 95
[2025-03-24 13:25] VITALS: BP 130/80; PULSE 74; RESP 17; O2SAT 98
[2025-03-24 13:30] VITALS: BP 125/81; PULSE 73; RESP 17; O2SAT 98
[2025-03-24 13:40] VITALS: BP 113/79; PULSE 68; RESP 17; TEMP 36.9; O2SAT 98
== END 2025-03-24 14:16 | disposition home or self-care (01) ==
PROVIDERS: PCP Nurse Practitioner Family; Visit Provider Surgery
PROC: (CPT 11470; principal; 2025-03-24 12:40)
DX: L73.2 Hidradenitis suppurativa (principal); L92.9 Granulomatous disorder of the skin and subcutaneous tissue, unspecified; R22.2 Localized swelling, mass and lump, trunk; Z79.1 Long term (current) use of non-steroidal anti-inflammatories (NSAID); Z79.899 Other long term (current) drug therapy; F43.10 Post-traumatic stress disorder, unspecified; E66.01 Morbid (severe) obesity due to excess calories; Z68.42 Body mass index [BMI] 45.0-49.9, adult; Z98.890 Other specified postprocedural states; Z87.891 Personal history of nicotine dependence; Z56.0 Unemployment, unspecified
CPT/HCPCS: 11470; 88305; J0690; J1100; J1885; J2003; J2250; J2405; J2704; J2795; J3010

== ENCOUNTER → 2025-03-24 10:18 | Outpatient (BNV) | payer MEDICARE, MEDICAID, SELFPAY | PROVIDERS: PCP Nurse Practitioner Family; Visit Provider Surgery | DX: L73.2 Hidradenitis suppurativa (principal) | CPT/HCPCS: 11462 ==

== ENCOUNTER 2025-04-05 08:32 | Outpatient (REF) | payer MEDICARE, MEDICAID, SELFPAY ==
--- OUTSIDE RECORDS SUMMARY | 2025-04-05 08:49 | XMS_ITS | Clinical Summary ---
Author Organization [employer] Address [address] [place] [address] Care Team Providers Care Rfid Systems Engineer Name Role Phone Cyndi Wilburn TALIA Primary Care Provider [phone] Allergies No known active allergies Medications ALPRAZolam [...] EVERY MORNING 60 g 2 4 Active atorvastatin (Lipitor) 20 MG tabletIndications: Mixed hyperlipidemia Take 1 tablet (20 mg) by mouth Once per day. 90 tablet 1 4 Active fluticasone (Flonase) 50 MCG/ACT nasal sprayIndications:N triston congestion INHALE 1-2 SPRAYS IN EACH NOSTRIL IN THE MORNING. SHAKE GENTLY BEFORE 1ST USE. PRIME PUMP. AFTER USE, CLEAN TIP AND REPLACE CAP 48 g 1 5 Active cholecalciferol (Vitamin D3) 25 MCG (1000 UT) tablet TAKE ONE TABLET BY MOUTH EVERY MORNING 90 tablet 1 5 Active Active Problems Problem Noted Date Diagnosed Date Moderately severe major depression 02/19/2025 Assessment & Plan (02/19/2025 5:16 PM EDT): Stable in care with psychiatry Dietary counseling 02/19/2025 Assessment & Plan (02/19/2025 5:18 PM EDT): Encouraged minimizing processed foods and increasing whole foods particularly vegetables Exercise counseling 02/19/2025 Assessment & Plan (02/19/2025 5:18 PM EDT): Dietary Recommendations: Fruits, vegetables, whole grains, protein foods, and fat-free or low-fat dairy products are healthy choices. Eat different types of protein foods in your diet. This can include seafood, lean meats, poultry, beans, peas, lentils, nuts, seeds, soy products, and eggs. Limit foods and beverages higher in added sugars, saturated fat, and sodium. Exercise Recommendations: At least 150 minutes of moderate-intensity physical activity per week, or an equivalent combination of moderate- and vigorous-intensity activity 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/2025 Anemia 01/13/2025 Pre-diabetes 01/13/2025 Assessment & Plan (02/19/2025 5:16 PM EDT): Met with nutrition, motivated to focus on lifestyle, Class 3 severe obesity with body mass index (BMI) of 40.0 to 44.9 in adult 10/18/2024 Assessment & Plan (02/19/2025 5:16 PM EDT): In care with nutrition, aware of pharmacologic options, declines glp-1 Is active and increasing activity with season change Assessment & Plan (10/18/2024 5:52 PM EST): [...] without diagnosis of hypertension Assessment & Plan (02/19/2025 5:15 PM EDT): Pt motivated to focus on lifestyle changes Assessment & Plan (10/18/2024 1:30 PM EST): [...] sites 06/26/2023 Overview (07/26/2023): Care managed by [place] medicare nurse Pending physical therapy Exercise daily Treating with Celebrex 200 mg BID + Voltaren gel Assessment & Plan (07/26/2023 9:01 PM EDT): Encouraged pt to call for physical therapy appt; referral placed Refill meds F/u PRN Anxiety 01/01/2023 Overview (07/26/2023): Stable; [facility] Treating Alprazolam 0.5 mg daily PRN Rx by specialist Risperidone 2 mg nightly Zoloft 100 mg daily Assessment & Plan (07/26/2023 9:00 PM EDT): Continue meds F/u with specialist Depressive disorder 01/01/2023 Overview (07/26/2023): Stable; BHN in [place] in person Treating Alprazolam 0.5 mg daily PRN Rx by specialist Risperidone 2 mg nightly Zoloft 100 mg daily Assessment & Plan (07/26/2023 8:59 PM EDT): Continue meds F/u with specialist Osteoarthritis of right ankle 01/01/2023 Posttraumatic stress disorder 01/01/2023 Overview (07/26/2023): Stable; BHN in [place] in person Treating Alprazolam 0.5 mg daily PRN Rx by specialist Risperidone 2 mg nightly Zoloft 100 mg daily Assessment & Plan (07/26/2023 8:59 PM EDT): Continue meds F/u with specialist Skin cysts, generalized 01/01/2023 Assessment & Plan (02/19/2025 5:17 PM EDT): Reoccuring groin cysts with frequent drainage, has met with surgical team before and would like to consult again, not currently infected or draining Assessment & Plan (07/26/2023 8:55 PM EDT): Cysts/acne improving since stopped Trazadone Continue clindagel use Followup 3 months or sooner PRN with dermatology Closed multiple fractures of both upper limbs Resolved Problems Problem Noted Date Diagnosed Date Resolved Date Tobacco dependence syndrome 01/01/2023 10/18/2024 Encounters Date Type Department Care Team Description 03/24/2025 Orders Only GENERIC EXTERNAL DATA DEPARTMENT Provider, Generic External Data 02/27/2025 10:30 AM EDT Clinical Support [facility] DIABETES/NUTRITION [address] [place] [id number] Exogenous obesity 02/27/2025 Travel 02/15/2025 Refill [facility] [place] [place] [address] Cyndi Wilburn NP 02/14/2025 Refill [facility] MEDICINE [address] [place] [address] Cyndi Wilburn NP Low back pain at multiple sites 01/30/2025 10:00 AM EST Clinical Support [facility] DIABETES/[place] [address] Body mass index 40.0-44.9, adult (CMS/HCC) (Primary Dx) 01/30/[address] [address] Cyndi Wilburn NP May Recall 01/30/2025 Travel 01/26/[address] [address] Cyndi Wilburn NP Referral 01/13/2025 10:15 AM EST Office Visit [address] [address] Cyndi Wilburn NP Class 3 severe obesity with body mass index (BMI) of 40.0 to 44.9 in adult, unspecified obesity type, unspecified whether serious comorbidity present (CMS/HCC) (Primary Dx); Skin cysts, generalized; Anemia, unspecified type; Pre-diabetes; Dietary counseling; Exercise counseling; Moderately severe major depression (CMS/HCC); Elevated BP without diagnosis of hypertension 01/13/2025 Travel 01/10/2025 Telephone [facility] MEDICINE [address] [place] [phone] [address] [place] Chart prep from Last 3 Months Immunizations Name Administration [...] EST Inhaled Oxygen Concentration - - Weight 142 kg (313 lb 4.8 oz) 03/01/2025 11:39 A M EDT Height 185.4 cm (6' 1 ) 03/01/2025 11:39 AM EDT Body Mass Index 41.33 03/01/2025 11:39 AM EDT Plan of Treatment Upcoming Encounters Date Type Department Care Team (Late st Contact Info) Description 04/10/2025 10:00 AM EDT Clinical Support [facility] DIABETES/NUTRITION [address] [place] [address] Hyun Bates, RD [address] [place] [address] 04/12/2025 10:15 AM EDT Office Visit [facility] MEDICINE [address] [place] [address] Cyndi Wilburn, TALIA [address] [place] [address] Health Maintenance Due Date Last Done Comments Family Planning (PISQ) 1995 COVID-19 Vaccine ( season) 2024 07/16/2021, 06/25/2021 Influenza Vaccine (#1) 2024 Alcohol/Substance Use Screening 01/13/2026 01/13/2025 Depression Screening 01/13/2026 01/13/2025, 07/22/20 24 SDOH Screening 01/13/2026 01/13/2025 Tobacco Screening 01/13/2026 01/13/2025 Lipid Panel 10/18/2029 10/18/2024, 06/30, 01/02/2023, Additional history exists Zoster Vaccines (1 [...] Procedure Name Priority Date/Time Associated Diagnosis Comments GROSS AND MICROSCOPIC LEVEL 4 Routine 03/24/2025 1:00 PM EDT LIPID PANEL, STANDARD Routine 10/18/2024 1:42 PM [...] Recently Relevant to Health Maintenance Results * Gross and Microscopic Level 4 (03/24/2025 1:00 PM EDT) 03/24/2025 1:00 PM EDT 03/24/2025 1:42 PM EDT [facility] - 03/28/2025 6:57 AM EDT ----- ------- Name: Jennifer Miles ? Age/Sex: 44/M ? : 1980 Unit#: [id number] ?? Attend Dr: Jeanmarie Van MD ?Re03/24/25 ?Status: DEP SDC ? Location: HO.SSS ?Disch: ? ----- ------- SPEC : [id number] ? RECD: 03/24/25-1341 ? STATUS: ??SOUT ? REQ NUM: [id number] ? JAYESH: 03/24/25-1300 ? SUBM DR: Jeanmarie Van MD ? ENTERED: ??03/24/25-1354 ?SP TYPE: Surgical ? OTHR DR: Cyndi Wilburn FIELD MARKETING TEAM LEADER ? ORDERED: ??Gross Micro L4 ? Diagnosis ?? Skin and subcutaneous soft tissue, right groin, excision: ??Skin and subcutaneous soft ?? tissue with invaginated epidermis and marked granulation tissue formation, consistent ?? with hidradenitis. ?Clinical History Hidradenitis ?Microscopic Description Microscopic sections reviewed. ? Material Received ?? Hidradenitis right groin ? Gross Description Received in formalin labeled ?hidradenitis right groin is a 4.0 x 2.0 cm ellipse of puckered and retracted, hair-bearing suarez skin and cauterized, incised congested and hemorrhagic suarez-yellow and red-maroon dermal and subcutaneous tissues excised to a maximum depth of 2.5 cm. ??The skin surface is focally puckered and retracted. ??The margins are inked and the specimen is serially sectioned to reveal several clefted foci with hemorrhage and adjacent fibrosis scattered throughout the specimen as well as foci suggestive of incisions communicating with the peripheral and deep margins. ??Horticultural Nursery Assistant sections are submitted in cassettes [id number]. CEDS Copies To: ?? Cyndi Wilburn NP ?? [facility] ?? [address] ?? [place] ?? [phone] ?? Jeanmarie Van MD ?? [facility] General Surgeons ?? [address] ?? [place] [address] ?? [phone] ? CONTINUED ON NEXT PAGE ----- ------- Name: Jennifer Miles ? Age/Sex: 44/M ? : 1980 Unit#: [id number] ?? Attend Dr: Jeanmarie Van MD ?Re03/24/25 ?Status: DEP SDC ? Location: HO.SSS ?Disch: ? ----- ------- SPEC : [id number] ? RECD: 03/24/25-1341 ? STATUS: ??SOUT ? REQ NUM: [id number] ? JAYESH: 03/24/25-1300 ? SUBM DR: Jeanmarie Van MD ? ENTERED: ??03/24/25-3012 ?SP TYPE: Surgical ? OTHR DR: Cyndi Wilburn FIELD MARKETING TEAM LEADER ? ORDERED: ??Gross Micro L4 ? ----- ------- Signed (signature on file) Gennaro Molnia MD 03/28/25 0657 ? ----- ------- ? END OF REPORT ? us Generic External Data Provider LAB CYTOLOGY WENDYE AYDE Final Result [facility] [address] [place] [address] [phone] * (ABNORMAL) Lipid Panel, Standard (10/18/2024 1:42 PM EST) Triglycerides 283(H) <150 mg/dL [facility] Comment:Desirable Triglyceri de: less than 150 mg/dLBorderline High Triglyceride 150-199 mg/dLHigh Triglyceride: 200-499 mg/dLVery High Triglyceride: greater than or equal to 5OO mg/dL Cholesterol 162 <200 mg/dL [facility] Comment:Desirable Cholestero l: less than 200 mg/dLBorderline High Cholesterol: 200-239 mg/dLHigh Cholesterol: greater than 239 mg/dL LDL Cholesterol Calculated 74 <100 mg/dL [facility] Comment:Desirable LDL: less than 100 mg/dLNear Optimal/Above Optimal LDL: 110- 129 mg/dLBorderline High LDL: 130-159 mg/dLHigh LDL: 160-189 mg/dLVery High LDL: greater than or equal to 190 mg/dL HDL Cholesterol 32(L) >40 mg/dL [facility] Comment:Desirable HDL: great er than 40 mg/dL Note: This HDL assay may give artificially low results in patients with liver disease. Blood Venous blood specimen / Unknown 10/18/2024 1:42 PM EST 10/18/2024 4:07 PM EST Cyndi Wilburn FIELD MARKETING TEAM LEADER LAB BLOOD ORDERABLES Final Resul t [facility] [address] [place] [phone] * HEPATITIS C AB W/REFL TO HCV RNA, QN, PCR (12/09/2021 9:18 AM EST) HEPATITIS C ANTIBODY NON-REACT JONAH NON-REACT JONAH [facility] INDEX 0.09 <1.00 [facility] Comment: ?? HCV antibody was non-reactive. There is no laboratory ?? evidence of HCV infection. ?? In most cases, no further action is required. However, if recent HCV exposure is suspected, a test for HCV RNA (test code 54446) is suggested. ?? For additional information please refer to http://education.wst.cn/faq/IMG35x1 (This link is being provided for informational/ educational purposes only.) ?? 12/09/2021 9:18 AM EST us Erin Castaneda FAMILY AND CONSUMER SCIENCES PROFESSOR HISTORICAL/NON ORDERABLE L ABS Final Result Performing Organization Address [facility] de Phone Number [facility] [address] * HIV 1/2 ANTIGEN/ANTIBODY,FOURTH GENERATION W/RFL (12/09/2021 9:18 AM EST) HIV-1/2 ANTIGEN AND ANTIBODIES, 4TH GENERATION W/ REFLEX NON-REACT JONAH NON-REACT JONAH [facility] Comment: HIV-1 antigen and HIV-1/HIV-2 [...] ? For additional information please refer to http://education.wst.cn/faq/OXH089 (This link is being provided for informational/ educational purposes only.) ? The performance of this assay has not been clinically validated in patients less than 2 years old. ?? 12/09/2021 9:18 AM EST Erin Edwige Castaneda FAMILY AND CONSUMER SCIENCES PROFESSOR LAB BLOOD ORDERABLES Final Result Performing Organization Address [facility] Phone Number [facility] [address] from Last 3 Months or Most Recently Relevant to Health Maintenance Insurance MEDICARE Member Subscriber Plan / Payer (Ef fective 2024-Present) Name:Jennifer Miles Member ID:[id number] Relation to Subscriber:Self Name:Jennifer Miles Subscriber ID:[id number] Payer ID:STATE Group ID:Not on file Type:Medicare [facility] [place] [address] [address] [facility]. [address] [facility] [place] [address] [facility] Care Teams Rfid Systems Engineer Relationship Specialty Start Date End Date Cyndi Wilburn NP [address] [place] [address] PCP - General Family Medicine 08/02/24
--- OUTSIDE RECORDS SUMMARY | 2025-04-05 08:49 | XMS_ITS | Encounter Summary ---
Author Organization [employer] Address [address] [place] [address] Care Team Providers Care Trap Operator Name Role Phone Cyndi Wilburn NP Primary Care Provider [phone] Reason for Visit * Reason Comments Med Refill Encounter Details Date Type Department Care Team ([facility] st Contact Info) Description 02/14/2025 Refill [facility] MED[facility] [address] [place], [place] [phone] Cyndi Wilburn NP [address] [place] [address] Low back pain at multiple sites Social History Tobacco Use Types Packs/Day Years [...] Description 04/10/2025 10:00 AM EDT Clinical Support [facility] DIABETES/NUTRITION [address] [place] [address] Hyun Bates, LOPEZ [address] [place] [address] 04/12/2025 10:15 AM EDT Office Visit [facility] MED[facility]INE [address] [place] [address] Cyndi Wilburn NP [address] [place] [address] documented as of this encounter Visit Diagnoses Diagnosis Low back pain at multiple sites documented in this encounter Additional Health Concerns Assessment Noted Time PHQ-9 Depression Total Score: 19 024 10:39 AM EDT documented as of this encounter Care Teams Trap Operator Relationship Specialty Start Date End Date Cyndi Wilburn NP [address] [place] [address] PCP - General Family Medicine 08/02/24 documented as of this encounter
--- OUTSIDE RECORDS SUMMARY | 2025-04-05 08:49 | XMS_ITS | Encounter Summary ---
Author Organization [employer] Address [address] [facility] 7t [place] [address] Care Team Providers Care Manager Environmental Health Name Role Phone Erin Castaneda Edwige FIXED INCOME MANAGER Primary Care Provider [phone] Tara Spears NP Primary Care Provider [phone] Tri Anglin FIXED INCOME MANAGER Primary Care Provider [phone] Cyndi Wilburn NP Primary Care Provider [phone] Encounter Details Date Type Department Care Team (Late st Contact Info) Description 12/10/2022 Orders Only [facility] [address] [place] [address] [phone] Estefania Stafford LPN Social History Tobacco Use [...] Encounters Date Type Department Care Team (Late Contact Info) Description 04/10/2025 10:00 AM EDT Clinical Support [facility] DIABETES/NUTRITION [address] [place] [phone] [place], [place] [phone] 04/12/2025 10:15 AM EDT Office Visit [facility] [address] [place] [address] [phone] Cyndi Wilburn NP 230 [place] [address] documented as of this encounter Visit Diagnoses Not on filedocumented in this encounter Care Teams Manager Environmental Health Relationship Specialty Start Date End Date Erin Castaneda FNP PCP - General Family Medicine 02/19/22 09/03/23 Tara Spears NP 230 [place] [address] PCP - General Family Medicine 09/04/23 12/01/23 Tri Anglin FNP 230 [place] [address] PCP - General Family Medicine 12/02/23 08/01/24 Cyndi Wilburn NP [address] [place] [address] PCP - General Family Medicine 08/02/24 documented as of this encounter
--- OUTSIDE RECORDS SUMMARY | 2025-04-05 08:49 | XMS_ITS | Encounter Summary ---
Author Organization [employer] Address 75 [facility] 7t [place] [address] Care Team Providers Care Deckhand Maintenance Name Role Phone Erin Castaneda SOIL SURVEYOR Primary Care Provider [phone] Tara Spears MANAGER TECHNICAL Primary Care Provider [phone] Tri Anglin SOIL SURVEYOR Primary Care Provider [phone] Cyndi Wilburn MANAGER TECHNICAL Primary Care Provider [phone] Reason for Visit * Reason Comments Med Refill Encounter Details Date Type Department Care Team (Late Contact Info) Description 02/03/2023 Refill [facility] MEDICINE 230 [place] [address] Erin Castaneda SOIL SURVEYOR [address] [place] [address] Dept [place] [address] Nasal congestion Social History Tobacco Use Types [...] Description 04/10/2025 10:00 AM EDT Clinical Support [facility] DIABETES/NUTRITION 230 [place], [place] [phone] Hyun [address] [place], [place] [phone] 04/12/2025 10:15 AM EDT Office Visit [facility] MEDICINE 230 [place] [address] Cyndi Wilburn NP [address] [place] [address] documented as of this encounter Visit Diagnoses Diagnosis Nasal congestion Other diseases of nasal cavity and sinuses documented in this encounter Care Teams Deckhand Maintenance Relationship Specialty Start Date End Date Erin Castaneda FNP PCP - General Family Medicine 02/19/22 09/03/23 Tara Spears NP [address] [place] [address] PCP - General Family Medicine 09/04/23 12/01/23 Tri Anglin FNP 230 [place] [address] PCP - General Family Medicine 12/02/23 08/01/24 Cyndi Wilburn NP [address] [place] [address] PCP - General Family Medicine 08/02/24 documented as of this encounter
[2025-04-05 11:06] LABS: MANUAL DIFF FLAG NO
[2025-04-05 11:29] LABS: Estimated Average Glucose 117 mg/dL; Hemoglobin A1C 137.5696 umol/L; Hemoglobin A1c % 5.7 % (<6.0); Total Hemoglobin (HGBA1C) 3568.9021 umol/L
[2025-04-05 11:30] LABS: Basophils Percent Auto 0.4 % (0-2); Eosinophils Absolute Auto 0.3 X10*3/uL (0.0-0.4); Eosinophils Percent Auto 5.5 % (0-4); Hematocrit 40.1 % (42.0-52.0); Hemoglobin 13.7 g/dl (14.0-18.0); Imm Gran Abs Auto 0.01 X10*3/uL (0.00-0.03); Imm Gran Pct Auto 0.2 % (0.0-0.4); Lymphocytes Absolute Auto 1.6 X10*3/uL (1.2-4.9); Lymphocytes Percent Auto 30.8 % (20-40); Mean Corpuscular HGB Conc 34.2 g/dl (31.0-36.0); Mean Corpuscular Hemoglobin 30.4 pg (27.0-33.0); Mean Corpuscular Volume 89.1 fL (80.0-98.0); Mean Platelet Volume 10.7 fL (9.4-12.4); Monocytes Absolute Auto 0.6 X10*3/uL (0.1-1.2); Neutrophils Absolute Auto 2.6 x10*3/uL (2.0-8.3); Neutrophils Percent Auto 52.1 % (45-73); Platelet Count 244 X10*3/uL (160-400); Red Cell Distribution Width 12.3 % (11.0-16.0); White Blood Count 5.1 X10*3/uL (4.8-10.8)
== END 2025-04-05 08:33 | disposition home or self-care (01) ==
LOC: HO.HHCL 08:32
PROVIDERS: Visit Provider Nurse Practitioner Family
DX: D64.9 Anemia, unspecified (principal); E66.813 Obesity, class 3; E66.01 Morbid (severe) obesity due to excess calories; Z68.41 Body mass index [BMI] 40.0-44.9, adult; R73.03 Prediabetes
CPT/HCPCS: 36415; 83036; 85025

== ENCOUNTER 2025-04-06 12:51 | Outpatient (AMB) | payer MEDICARE, MEDICAID, SELFPAY ==
[2025-04-06 13:03] VITALS: BP 138/72; PULSE 92
--- NOTE | 2025-04-06 13:03 | A.OFFVIS_ITS ---
Vital Signs 04/06/25 13:03 Weight 319 lb BP 138/72 Blood Pressure Location Rt radial Position Sitting Pulse 92 Intake Visit Reasons: S/P hydradenitis Rt. groin Intake Note: Patient here s/p hydradenitis suppurativa Rt groin. Reports incision slowly healing. Not taking rx pain meds. Patient c/o: no concerns. Surgery: 03-24-25 Sex Offender Treatment Professional Required: No Accompanied by: Self / Same As Patient Allergies No Known Allergies Allergy (Verified 04/06/25 13:04) HPI HPI S/P hydradenitis Rt. groin: Details: He underwent excision of hidradenitis from the groin area last 03/24/2025. He tolerated the procedure well. He currently denies significant complaints. FORMERLY [facility], 1928–1983 Medical History Hidradenitis suppurativa Morbid obesity Sacrococcygeal pilonidal cyst Epidermal cyst Epidermal inclusion cyst PTSD (post-traumatic stress disorder) Surgical History History of open reduction and internal fixation (ORIF) procedure History of surgical removal of pilonidal cyst History of excision of epidermal inclusion cyst (~01/09/22) Social History Are you a primary resident care manager rn to a significant other at home: No Do you presently have visiting nurse or other home services: No Alcohol intake: never Patient Tobacco Use Status: Former Tobacco user Tobacco use type: Cigarette Years Smoked: 20 Current occupational status: unemployed Current occupation: rt handed Review of Systems Const Denies chills and Denies fever(s) Physical Exam Vital Signs: Last Vital Signs Pulse 92 04/06/25 13:03 BP 138/72 04/06/25 13:03 Const General: comfortable and no acute distress Skin Other: Right groin area -excision site healing well, sutures intact, no discharge, no induration, no abscess Assessment & Plan Assessment & Plan (1) Hidradenitis suppurativa: Code(s): L73.2 - Hidradenitis suppurativa Category: Medical Plan: Status post excision of hidradenitis, right groin. He is doing well. His inci rob is healing so I removed all his sutures. I reinforced the incision with Steri-Strips I discussed with him proper wound care. He can follow up in the office on a p.r.n. basis. His path report shows findings consistent with hidradenitis. Coding Level of Care Code Global (15856) Diagnoses Hidradenitis suppurativa L73.2
--- OUTSIDE RECORDS SUMMARY | 2025-04-06 13:57 | XMS_ITS | Encounter Summary ---
Author Organization [employer] Address 75 [facility] 7t [place] [address] Care Team Providers Care Trimming Cutter Machine Name Role Phone Erin Castaneda LUNCH COOK Primary Care Provider [phone] Tara Spears ACCOUNTING ADMINISTRATOR Primary Care Provider [phone] Tri Anglin LUNCH COOK Primary Care Provider [phone] Cyndi Wilburn ACCOUNTING ADMINISTRATOR Primary Care Provider [phone] Reason for Visit * Reason Comments Med Refill Encounter Details Date Type Department Care Team (Late Contact Info) Description 02/03/[address] [facility] MEDICINE 230 [place] [address] Erin Castaneda LUNCH COOK [address] [place] [address] Dept [place] [address] Nasal congestion Social History Tobacco Use Types [...] Description 04/10/2025 10:00 AM EDT Clinical Support [facility] DIABETES/NUTRITION 230 [place], [place] [phone] Hyun [address] [place], [place] [phone] 04/12/2025 10:15 AM EDT Office Visit [facility] MEDICINE 230 [place] [address] Cyndi Wilburn NP 230 [place] [address] documented as of this encounter Visit Diagnoses Diagnosis Nasal congestion Other diseases of nasal cavity and sinuses documented in this encounter Care Teams Trimming Cutter Machine Relationship Specialty Start Date End Date Erin Castaneda FNP PCP - General Family Medicine 02/19/22 09/03/23 Tara Spears NP 230 [place] [address] PCP - General Family Medicine 09/04/23 12/01/23 Tri Anglin FNP 230 [place] [address] PCP - General Family Medicine 12/02/23 08/01/24 Cyndi Wilburn NP 230 [place] [address] PCP - General Family Medicine 08/02/24 documented as of this encounter
--- OUTSIDE RECORDS SUMMARY | 2025-04-06 13:57 | XMS_ITS | Encounter Summary ---
Author Organization [employer] Address [address] [facility] 7t [place] [address] Care Team Providers Care Principal Software Architect Name Role Phone Cyndi Wilburn NP Primary Care Provider [phone] Reason for Visit * Reason Comments Med Refill Encounter Details Date Type Department Care Team ([facility] st Contact Info) Description 02/14/2025 Refill [facility] MEDICINE 230 [place], [place] [phone] Cyndi Wilburn NP 230 [place] [address] Low back pain at multiple sites Social [...] Description 04/10/2025 10:00 AM EDT Clinical Support [facility] DIABETES/NUTRITION 230 [place] [address] Hyun Bates, LOPEZ 230 [place] [address] 04/12/2025 10:15 AM EDT Office Visit [facility] MEDICINE 230 [place] [address] Cyndi Wilburn NP 230 [place] [address] documented as of this encounter Visit Diagnoses Diagnosis Low back pain at multiple sites documented in this encounter Additional Health Concerns Assessment Noted Time PHQ-9 Depression Total Score: 19 024 10:39 AM EDT documented as of this encounter Care Teams Principal Software Architect Relationship Specialty Start Date End Date Cyndi Wilburn NP 230 [place] [address] PCP - General Family Medicine 08/02/24 documented as of this encounter
--- OUTSIDE RECORDS SUMMARY | 2025-04-06 13:57 | XMS_ITS | Clinical Summary ---
Author Organization [employer] Address 75 [facility] 7t [place] [address] Care Team Providers Care Esl Instructor Name Role Phone Cyndi Wilburn TALIA Primary Care Provider [phone] Allergies No known active allergies Medications ALPRAZolam [...] sites 06/26/2023 Overview (07/26/2023): Care managed by [facility] Pending physical therapy Exercise daily Treating with Celebrex 200 mg BID + Voltaren gel Assessment & Plan (07/26/2023 9:01 PM EDT): Encouraged pt to call for physical therapy appt; referral placed Refill meds F/u PRN Anxiety 01/01/2023 Overview (07/26/2023): Stable; [facility] in [facility] in person Treating Alprazolam 0.5 mg daily PRN Rx by specialist Risperidone 2 mg nightly Zoloft 100 mg daily Assessment & Plan (07/26/2023 9:00 PM EDT): Continue meds F/u with specialist Depressive disorder 01/01/2023 Overview (07/26/2023): Stable; BHN in [place] in person Treating Alprazolam 0.5 mg daily PRN Rx by specialist Risperidone 2 mg nightly Zoloft 100 mg daily Assessment & Plan (07/26/2023 8:59 PM EDT): Continue meds F/u with specialist Osteoarthritis of right ankle 01/01/2023 Posttraumatic stress disorder 01/01/2023 Overview (07/26/2023): Stable; BHN in [place] in person Treating Alprazolam 0.5 mg daily [...] Encounters Date Type Department Care Team Description 04/05/2025 Patient Outreach [facility] [address] [place] [address] Cyndi Wilburn NP Pre-visit Planning (SDOH was already completed) 03/24/2025 Orders Only GENERIC EXTERNAL DATA DEPARTMENT Provider, Generic External Data 02/27/2025 10:30 AM EDT Clinical Support [facility] DIABETES/NUTRITION [address] [place] [address] Exogenous obesity 02/27/2025 Travel 02/15/2025 Refill [facility] MEDICINE [address] [place] [address] Cyndi Wilburn NP 02/14/2025 Refill [facility] MEDICINE [address] [place] [address] Cyndi Wilburn NP Low back pain at multiple sites 01/30/2025 10:00 AM EST Clinical Support [facility] DIABETES/NUTRITION [address] [place] [address] Body mass index 40.0-44.9, adult (CMS/[facility]) (Primary Dx) 01/30/[address] [address] Cyndi Wilburn NP May Recall 01/30/2025 Travel 01/26/2025 Telephone [facility] MEDICINE [address] [place] [address] Cyndi Wilburn NP Referral 01/13/2025 10:15 AM EST Office Visit [address] [address] Cyndi Wilburn NP Class 3 severe obesity with body mass index (BMI) of 40.0 to 44.9 in adult, unspecified obesity type, unspecified whether serious comorbidity present (CMS/[facility]) (Primary Dx); Skin cysts, generalized; Anemia, unspecified type; Pre-diabetes; Dietary counseling; Exercise counseling; Moderately severe major depression (CMS/HCC); Elevated BP without diagnosis of hypertension 01/13/2025 Travel 01/10/2025 Telephone [facility] MEDICINE 230 [place], [place] [phone] Sugey [place] Chart prep from Last [...] 10:00 AM EDT Clinical Support [facility] DIABETES/NUTRITION [address] [place] [address] Hyun Bates, LOPEZ 230 [place] [address] 04/12/2025 10:15 AM EDT Office Visit [facility] MEDICINE 230 [place] [address] Cyndi Wilburn NP 230 [place] [address] Health Maintenance Due Date Last Done Comments Family Planning (PISQ) 1995 COVID-19 Vaccine ( season) 2024 07/16/2021, 06/25/2021 Influenza Vaccine (#1) 2024 Alcohol/Substance Use Screening 01/13/2026 01/13/2025 Depression Screening 01/13/2026 01/13/2025, 07/22/20 24 SDOH Screening 01/13/2026 01/13/2025 Tobacco Screening 01/13/2026 01/13/2025 Diabetes: Hemoglobin A1C 04/05/2026 025, 10/18/2024, 07/09/2023, Additional history exists Lipid Panel 10/18/2029 10/18/2024, 08/, 01/02/2023, Additional [...] Procedure Name Priority Date/Time Associated Diagnosis Comments HEMOGLOBIN A1C Routine 04/05/2025 8:35 AM EDT Class 3 severe obesity with body mass index (BMI) of 40.0 to 44.9 in adult, unspecified obesity type, unspecified whether serious comorbidity present Pre-diabetes CBC WITH AUTO DIFFERENTIAL Routine 04/05/2025 8:35 AM EDT Anemia, unspecified type GROSS AND MICROSCOPIC LEVEL 4 Routine 03/24/2025 [...] Relevant to Health Maintenance Results * (ABNORMAL) CBC auto differential (04/05/2025 8:35 AM EDT) White Blood Count 5.1 4.8 - 10.8 X10*3/uL [facility] Red Blood Count 4.50(L) 4.60 - 5.80 X10*6/uL [facility] Hemoglobin 13.7(L) 14.0 - 18.0 g/dl [facility] Hematocrit 40.1(L) 42.0 - 52.0 % [facility] Mean Corpuscular Volume 89.1 80.0 - 98.0 fL [facility] Mean Corpuscular Hemoglobin 30.4 27.0 - 33.0 pg [facility] Mean Corpuscular HGB Conc 34.2 31.0 - 36.0 g/dl [facility] Red Cell Distribution Width 12.3 11.0 - 16.0 % [facility] Platelet Count 244 160 - 400 X10*3/uL [facility] Mean Platelet Volume 10.7 9.4 - 12.4 fL [facility] Neutrophils Percent Auto 52.1 45 - 73 % [facility] Imm Gran Pct Auto 0.2 0.0 - 0.4 % [facility] Lymphocytes Percent Auto 30.8 20 - 40 % [facility] Monocytes Percent Auto 11.0 2 - 11 % [facility] Eosinophils Percent Auto 5.5(H) 0 - 4 % [facility] Basophils Percent Auto 0.4 0 - 2 % [facility] NRBC Pct Auto 0.0 0.0 - 0.2 /100WBC [facility] Neutrophils Absolute Auto 2.6 2.0 - 8.3 x10*3/uL [facility] Imm Gran Abs Auto 0.01 0.00 - 0.03 X10*3/uL [facility] Lymphocytes Absolute Auto 1.6 1.2 - 4.9 X10*3/uL [facility] Monocytes Absolute Auto 0.6 0.1 - 1.2 X10*3/uL [facility] Eosinophils Absolute Auto 0.3 0.0 - 0.4 X10*3/uL [facility] Basophils Absolute Auto 0.0 0.0 - 0.2 X10*3/uL [facility] NRBC Abs Auto 0.000 0.0 - 0.012 X10*3/uL [facility] Blood Venous blood specimen / Unknown 04/05/2025 8:35 AM EDT 04/05/2025 11:03 AM EDT us Cyndi Wilburn NP LAB BLOOD ORDERABLES Final Resul t [facility] [address] [place] [address] [phone] * Hemoglobin A1c (04/05/2025 8:35 AM EDT) Hemoglobin A1c 5.7 <6.0 % [facility] Comment:Hemoglobin A1C Refer ence Range Adults: 4.8 - 6.0 % Non diabetic: < 6.0 % Goal: < 7.0 %Additional Action Suggested: > 8.0 %Note: Hemoglobin A1c results are invalid for patients with abnormal amounts of HbF. Blood transfusions may impact the HbA1c concentration in the patient sample. Estimated Average Glucose 117 mg/dL [facility] Comment:eAG = Estimated ave rage glucose which is %A1C expressed asaverage glucose, using the formula of the J7Y-HpjmzchEzxtaop Glucose study (ADAG), Diabetes Care, Vol.31,#8,2007 Blood Venous blood specimen / Unknown 04/05/2025 8:35 AM EDT 04/05/2025 11:03 AM EDT us Cyndi Wilburn NP LAB BLOOD ORDERABLES Final Resul t [facility] [address] [place] [phone] * Gross and Microscopic Level 4 (03/24/2025 1:00 PM EDT) 03/24/2025 1:00 PM EDT 03/24/2025 1:42 PM EDT Narrative [facility] - 03/28/2025 6:57 AM EDT ----- ------- Name: Jennifer Miles ? Age/Sex: 44/M ? : 1980 Unit#: [id number] ?? Attend Dr: Jeanmarie Van MD ?Re03/24/25 ?Status: DEP SDC ? Location: HO.SSS ?Disch: ? ----- ------- SPEC : [id number] ? RECD: 03/24/25 ? STATUS: ??SOUT ? REQ NUM: [id number] ? JAYESH: 03/24/25-1300 ? SUBM DR: Jeanmarie Van MD ? ENTERED: ??03/24/257778 ?SP TYPE: Surgical ? OTHR DR: Cyndi Wilburn BOAT OFFICER ? ORDERED: ??Gross Micro L4 ? Diagnosis [...] communicating with the peripheral and deep margins. ??Garage Helper sections are submitted in cassettes A1-A4. CEDS Copies To: ?? Cyndi Wilburn BOAT OFFICER ?? [facility] ?? [address] ?? [place] [address] ?? [phone] ?? Jeanmarie Van MD ?? [facility] Sur[facility] ?? [address] [facility] ?? [place] ?? [phone] ? CONTINUED ON NEXT PAGE ----- ------- Name: Jennifer Miles ? Age/Sex: 44/M ? : 1980 Unit#: [id number] ?? Attend Dr: Jeanmarie Van MD ?Re03/24/25 ?Status: DEP [facility] ? Location: HO.SSS ?Disch: ? ----- ------- SPEC : [id number] ? RECD: 03/24/25-1341 ? STATUS: ??SOUT ? REQ NUM: [id number] ? JAYESH: 03/24/25-1300 ? SUBM DR: Jeanmarie Van MD ? ENTERED: ??03/24/25-1771 ?SP TYPE: Surgical ? OTHR DR: Cyndi Wilburn BOAT OFFICER ? ORDERED: ??Gross Micro L4 ? ----- ------- Signed (signature on file) Gennaro Molina MD 03/28/25 0657 ? ----- ------- ? END OF REPORT ? us Generic External Data Provider LAB CYTOLOGY LULA MESSER Final Result Performing Organization Address [facility]/ZIP Co de Phone Number [facility] [address] [place] [phone] * (ABNORMAL) Lipid Panel, Standard (10/18/2024 1:42 PM EST) Triglycerides 283(H) <150 mg/dL [facility] Comment:Desirable Triglyceri de: less than 150 mg/dLBorderline High Triglyceride 150-199 mg/dLHigh Triglyceride: 200-499 mg/dLVery High Triglyceride: greater than or equal to 5OO mg/dL Cholesterol 162 <200 mg/dL [facility] Comment:Desirable Cholestero l: less than 200 mg/dLBorderline High Cholesterol: 200-239 mg/dLHigh Cholesterol: greater than 239 mg/dL LDL Cholesterol Calculated 74 <100 mg/dL [facility] Comment:Desirable LDL: less than 100 mg/dLNear Optimal/Above Optimal LDL: 110- 129 mg/dLBorderline High LDL: 130-159 mg/dLHigh LDL: 160-189 mg/dLVery High LDL: greater than or equal to 190 mg/dL HDL Cholesterol 32(L) >40 mg/dL [facility] Comment:Desirable HDL: great er than 40 mg/dL Note: This HDL assay may give artificially low results in patients with liver disease. Blood Venous blood specimen / Unknown 10/18/2024 1:42 PM EST 10/18/2024 4:07 PM EST us Cyndi Wilburn BOAT OFFICER LAB BLOOD ORDERABLES Final Resul t Performing Organization Address City/[facility]/ZIP Co de Phone Number [facility] [address] [place] [address] [phone] * HEPATITIS C AB W/REFL TO HCV RNA, QN, PCR (12/09/2021 9:18 AM EST) HEPATITIS C ANTIBODY NON-REACT [facility] NON-REACT [facility] INDEX 0.09 <1.00 [facility] Comment: ?? HCV antibody was non-reactive. There is no laboratory ?? evidence of HCV infection. ?? In most cases, no further action is required. However, if recent HCV exposure is suspected, a test for HCV RNA (test code 52092) is suggested. ?? For additional information please refer to http://[employer]/faq/QAM13y1 (This link is being provided for informational/ educational purposes only.) ?? 12/09/2021 9:18 AM EST Erin Gibbons Leonel SENIOR WIND ENERGY CONSULTANT HISTORICAL/NON ORDERABLE L ABS Final Result Performing Organization Address [facility] Phone Number [facility] [address] * HIV 1/2 ANTIGEN/ANTIBODY,FOURTH GENERATION W/RFL [...] ? For additional information please refer to http://[employer]/faq/UBY570 (This link is being provided for informational/ educational purposes only.) ? The performance of this assay has not been clinically validated in patients less than 2 years old. ?? 12/09/2021 9:18 AM EST Erin Castaneda SENIOR WIND ENERGY CONSULTANT LAB BLOOD ORDERABLES Final Result Performing Organization Address [facility] Phone Number [facility] [address] [place] [address], [place] from Last 3 Months or Most Recently Relevant to Health Maintenance Insurance [place] [address] [id number] COUNT INCLUDES THE [facility] Care Teams Esl Instructor Relationship Specialty Start Date End Date Cyndi Wilburn NP [address] [place] [phone] PCP - General Family Medicine 08/02/24
--- OUTSIDE RECORDS SUMMARY | 2025-04-06 13:57 | XMS_ITS | Encounter Summary ---
Author Organization [employer] Address [address] [facility] 7t [place] [address] Care Team Providers Care Septic Tank Setter Name Role Phone Erin Castaneda Edwige GALVANOMETER ASSEMBLER Primary Care Provider [phone] Tara Spears NP Primary Care Provider [phone] Tri Anglin GALVANOMETER ASSEMBLER Primary Care Provider [phone] Cyndi Wilburn NP Primary Care Provider [phone] Encounter Details Date Type Department Care Team (Late st Contact Info) Description 12/10/2022 Orders Only [facility] MEDICINE [address] [place] [address] [phone] Estefania Stafford LPN Social History Tobacco Use [...] Description 04/10/2025 10:00 AM EDT Clinical Support [facility] DIABETES/NUTRITION [address] [place] [phone] [place], [place] [phone] 04/12/2025 10:15 AM EDT Office Visit [facility] MEDICINE [address] [place] [address] [phone] Cyndi Wilburn NP 230 [place] [address] documented as of this encounter Visit Diagnoses Not on filedocumented in this encounter Care Teams Septic Tank Setter Relationship Specialty Start Date End Date Erin Castaneda FNP PCP - General Family Medicine 02/19/22 09/03/23 Tara Spears NP [address] [place] [address] PCP - General Family Medicine 09/04/23 12/01/23 Tri Anglin FNP 230 [place] [address] PCP - General Family Medicine 12/02/23 08/01/24 Cyndi Wilburn NP [address] [place] [address] PCP - General Family Medicine 08/02/24 documented as of this encounter
--- OUTSIDE RECORDS SUMMARY | 2025-04-06 13:57 | XMS_ITS | Encounter Summary ---
Author Organization [employer] Address [address] [facility] 7t [place] [address] Care Team Providers Care Pneumatic Jacketer Name Role Phone Cyndi Wilburn NP Primary Care Provider [phone] Reason for Visit * Reason Comments Pre-visit Planning SDOH was already com pleted Encounter Details Date Type Department Care Team ([facility] st Contact Info) Description 04/05/2025 Patient Outreach [facility]ED[facility] [address] [place] [address] Cyndi Wilburn NP [address] [place] [address] Pre-visit Planning (SDOH was already completed) Social History Tobacco Use Types Packs/Day Years [...] AM EDT documented as of this encounter Progress Notes * [place] - 04/05/2025 4:01 PM EDT CAMILLE Cannon placed successful outbound call to patient for pre-visit planning. Patient name and confirmed. Patient confirms appt date and time, and has transportation arrangements. Biggest concern for appointment at this time is no concerns. Appropriate screenings completed in anticipation ofappointment. documented in this encounter Plan of Treatment Upcoming Encounters Date Type Department Care Team (Late st Contact Info) Description 04/10/2025 10:00 AM EDT Clinical Support [facility] DI[facility] [address] [place] [address] [place] [address] 04/12/2025 10:15 AM EDT Office Visit [facility] [address] [place] [address] Cyndi Wilburn NP [address] [place] [address] documented as of this encounter Visit Diagnoses Not on filedocumented in this encounter Additional Health Concerns Assessment Noted Time PHQ-9 Depression Total Score: 19 024 10:39 AM EDT documented as of this encounter Care Teams Pneumatic Jacketer Relationship Specialty Start Date End Date Cyndi Wilburn NP [address] [place] [address] PCP - General Family Medicine 08/02/24 documented as of this encounter
== END 2025-04-06 13:28 | disposition home or self-care (01) ==
LOC: HO.HGS 12:52
PROVIDERS: PCP Nurse Practitioner Family; Visit Provider Surgery
DX: L73.2 Hidradenitis suppurativa (principal)
CPT/HCPCS: 99024

== ENCOUNTER → 2025-04-06 12:51 | Outpatient (BNVA) | payer MEDICARE, MEDICAID, SELFPAY | PROVIDERS: PCP Nurse Practitioner Family; Visit Provider Surgery | DX: L73.2 Hidradenitis suppurativa (principal) | CPT/HCPCS: 99212 ==

== ENCOUNTER 2025-07-19 10:41 | Outpatient (REF) | payer MEDICARE, MEDICAID, SELFPAY ==
[2025-07-19 12:24] LABS: MANUAL DIFF FLAG NO
[2025-07-19 12:26] LABS: Hematocrit 40.4 % (42.0-52.0); Hemoglobin 13.6 g/dl (14.0-18.0); Imm Gran Abs Auto 0.01 X10*3/uL (0.00-0.03); Imm Gran Pct Auto 0.2 % (0.0-0.4); Lymphocytes Absolute Auto 1.8 X10*3/uL (1.2-4.9); Mean Corpuscular HGB Conc 33.7 g/dl (31.0-36.0); Mean Corpuscular Hemoglobin 30.3 pg (27.0-33.0); Mean Corpuscular Volume 90.0 fL (80.0-98.0); NRBC Abs Auto 0.000 X10*3/uL (0.0-0.012); NRBC Pct Auto 0.0 /100WBC (0.0-0.2); Platelet Count 216 X10*3/uL (160-400); Red Blood Count 4.49 X10*6/uL (4.60-5.80); White Blood Count 5.0 X10*3/uL (4.8-10.8)
[2025-07-19 12:54] LABS: Alanine Aminotransferase 35 U/L (0-40); Albumin Level 4.5 g/dL (3.5-5.0); Alkaline Phosphatase 69 U/L (39-117); Anion Gap 13 (12-20); Aspartate Amino Transferase 30 U/L (5-37); Blood Urea Nitrogen 19 mg/dL (9-16); Calcium 9.1 mg/dL (8.4-10.2); Carbon Dioxide 25 mmol/L (22-29); Chloride 105 mmol/L (96-108); Estimated Glomerular Filt Rate > 60; Potassium 4.9 mmol/L (3.3-5.1); Sodium 138 mmol/L (135-145); Total Protein 8.0 g/dL (6.5-8.0)
== END 2025-07-19 10:42 | disposition home or self-care (01) ==
LOC: HO.HHCL 10:41
PROVIDERS: PCP Nurse Practitioner Family; Visit Provider Nurse Practitioner Family
DX: D64.9 Anemia, unspecified (principal)
CPT/HCPCS: 36415; 80053; 85025

== ENCOUNTER 2025-10-23 08:34 | Outpatient (REF) | payer MEDICARE, MEDICAID, SELFPAY ==
--- OUTSIDE RECORDS SUMMARY | 2025-10-20 15:45 | XMS_ITS | Encounter Summary ---
Author Organization [employer] Address [address] [place] [address] 7t [place] [address] Care Team Providers Care Education And Training Coordinator Name Role Phone Cyndi Wilburn NP Primary Care Provider Reason for Referral * Consultation (Routine) - Pending Review Specialty Diagnoses / Procedures Referred By Stepan keys Referred To Contact Cardiology Diagnoses Chest tightness Hypertension, unspecified type Cyndi Wilburn NP [address] [place] [address] Phone: tel: fax: Referral ID Status Reason Start Date Expiration Date Visits Requested Visits Authorized [id number] Pending Review Specialty Services Required 5 10/20/2026 1 1 Reason for Visit * Reason Comments Follow-up Encounter Details Date Type Department Care Team ([facility] Contact Info) Description 10/20/2025 3:45 PM EST Office Visit [facility] MEDICINE [address] [place], [place] [phone] Cyndi Wilburn NP [address] [place] [address] Bilateral hip pain (Primary Dx); Weakness; Chest tightness; Hypertension, unspecified type Social History Tobacco Use Types Packs/Day Years Used Date Smoking Tobacco: Former Cigarettes Passive Smoke Exposure: Past Smokeless Tobacco: Never Comments:Smoked for approxim ately 19-20 years, has quit for 2 years Alcohol Use Standard Drinks/Week Comments Never 0 (1 standard drink = 0.6 oz pur e alcohol) Depression Answer Date Recorded Patient Health Questionnaire-9 Score 07/22/2024 Patient Health Questionnaire-9 Score 07/22/2024 Last PHQ-9: Questionnaire Data Not on [...] Sign Reading Time Taken Comments Blood Pressure 126/88 10/20/2025 3:55 PM EST Pulse 93 10/20/2025 3:55 PM EST Temperature 36.7 C (98.1 F) 10/20/2025 3:55 PM EST Respiratory Rate 23 10/20/2025 3:55 PM EST Oxygen Saturation 97% 10/20/2025 3:55 PM EST Inhaled Oxygen Concentration - - Weight 134 kg (296 lb) 10/20/2025 3:55 PM EST Height 185.4 cm (6' 1 ) 10/20/2025 3:55 PM EST Body Mass Index 39.05 10/20/2025 3:55 PM EST documented in this encounter Miscellaneous Notes * Assessment & Plan Note - Cyndi Wilburn NP - 10/20/2025 3:45 PM ESTAssociated Problem(s): Bilateral hip pain Orders: XR Hip 2 or 3 Views Left; Future XR Hip 2 or 3 Views Right; Future Comprehensive Metabolic Panel; Future CBC auto differential; Future Sed Rate by Modified Westergren; Future C-reactive Protein; Future XR Lumbar Spine Complete 4+ Views; Future * Assessment & Plan Note - Cyndi Wilburn NP - 10/20/2025 3:45 PM ESTAssociated Problem(s): Weakness Orders: Testosterone, Free (Dialysis) And Total, MS; Future TSH W/Reflex to FT4; Future * Assessment & Plan Note - Cyndi Wilburn NP - 10/20/2025 3:45 PM ESTAssociated Problem(s): Chest tightness Orders: Referral to Cardiology; Future * Assessment & Plan Note - Cyndi Wilburn NP - 10/20/2025 3:45 PM ESTAssociated Problem(s): Hypertension Orders: Referral to Cardiology; Future documented in this encounter Plan of Treatment Upcoming Encounters Date Type Department Care Team (Late st Contact Info) Description 11/28/2025 11:30 AM EST Clinical Support [facility] DIABETES/NUTRITION [address] [place] [address] [place] [address] 12/11/2025 10:30 AM EST Office Visit [facility] MEDICINE [address] [place] [address] Cyndi Wilburn NP [address] [place] [address] Scheduled Orders Name Type Priority Associated Diagnoses Orde r Schedule XR Hip 2 or 3 Views Left Imaging Routine Bilateral hip pain Expected: 10/20/2025, Expires: 10/20/2026 XR Hip 2 or 3 Views Right Imaging Routine Bilateral hip pain Expected: 10/20/2025, Expires: 10/20/2026 Comprehensive Metabolic Panel Lab Routine Bilateral hip pain Expected: 10/20/2025 (Approximate), Expires: 10/20/2026 Testosterone, Free (Dialysis) And Total, MS Lab Routine Weakness Expected: 10/20/2025 (Approximate), Expires: 10/20/2026 CBC auto differential Lab Routine Bilateral hip pain Expected: 10/20/2025 (Approximate), Expires: 10/20/2026 Sed Rate by Modified Westergren Lab Routine Bilateral hip pain Expected: 10/20/2025, Expires: 10/20/2026 C-reactive Protein Lab Routine Bilateral hip pain Expected: 10/20/2025 (Approximate), Expires: 10/20/2026 XR Lumbar Spine Complete 4+ Views Imaging Routine Bilateral hip pain Expected: 10/20/2025, Expires: 10/20/2026 TSH W/Reflex to FT4 Lab Routine Weakness Expected: 10/20/2025 (Approximate), Expires: 10/20/2026 Scheduled Referrals Name Type Priority Associated Diagnoses Orde r Schedule Referral to Cardiology Outpatient Referral Routine Chest tightness Hypertension, unspecified type Expected: 10/20/2025 (Approximate), Expires: 10/20/2026 documented as of this encounter Visit Diagnoses Diagnosis Bilateral hip pain- Primary Pain in joint, pelvic region and thigh Weakness Other malaise and fatigue Chest tightness Other chest pain Hypertension, unspecified type documented in this encounter Additional Health Concerns Assessment Noted Time PHQ-9 Depression Total Score: 19 024 10:39 AM EDT documented as of this encounter Care Teams Education And Training Coordinator Relationship Specialty Start Date End Date Cyndi Wilburn NP [address] [place] [address] PCP - General Family Medicine 08/02/24 documented as of this encounter
--- NOTE | ~2025-10-23 | XR_ITS ---
EXAMINATION: XR HIP 2 OR MORE VIEWS LEFT, XR HIP 2 OR MORE VIEWS RIGHT HISTORY: hip pain COMPARISON: Comparison is made with the prior examination of the left hip dated 02/05/2022. FINDINGS: Two views of each hip are submitted. Osseous mineralization is normal. There is no fracture or dislocation. The joint spaces are maintained. The soft tissues are unremarkable. XR/XR hip RT min 2V IMPRESSION: Unremarkable examination of the bilateral hips. Electronically signed by: Deepak Weldon MD 10/23/2025 10:18 AM GM MARCANO
--- NOTE | ~2025-10-23 | XR_ITS ---
EXAMINATION: XR HIP 2 OR MORE VIEWS LEFT, XR HIP 2 OR MORE VIEWS RIGHT HISTORY: hip pain COMPARISON: Comparison is made with the prior examination of the left hip dated 02/05/2022. FINDINGS: Two views of each hip are submitted. Osseous mineralization is normal. There is no fracture or dislocation. The joint spaces are maintained. The soft tissues are unremarkable. XR/XR hip LT min 2V IMPRESSION: Unremarkable examination of the bilateral hips. Electronically signed by: Deepak Weldon MD 10/23/2025 10:18 AM GM MARCANO
--- NOTE | ~2025-10-23 | XR_ITS ---
EXAMINATION: X-ray lumbar spine CLINICAL INFORMATION: Low back pain, pelvic pain COMPARISON: X-ray 02/05/2022 TECHNIQUE: 5 views FINDINGS: 5 nonrib-bearing lumbar type vertebral bodies. No evidence of acute fracture or subluxation. Vertebral body heights are maintained. Disc spaces are maintained. No suspicious bony lesions. SI joints are symmetric. No suspicious soft tissue calcifications. XR/XR lumbar spine 4V min IMPRESSION: No acute findings Electronically signed by: Ander Donohue MD 10/23/2025 10:19 AM GM
--- OUTSIDE RECORDS SUMMARY | 2025-10-23 08:53 | XMS_ITS | Clinical Summary ---
Author Organization [employer] Address [address] [facility] 7t [place] [address] Care Team Providers Care Senior Energy Market Coordinator Name Role Phone MichaelCyndi dailey TALIA Primary Care Provider [phone] Allergies No known active allergies Medications ALPRAZolam (Xanax) 0.5 MG tablet Take 0.5 mg by mouth if needed each day. 05/26/20 22 Active risperiDONE (RisperDAL) 2 MG tablet Take 2 mg by mouth at bedtime. 12/10/19 23 Active sertraline (Zoloft) 100 MG tablet Take 200 mg by mouth in the morning. 12/03/19 23 Active atorvastatin (Lipitor) 20 MG tabletIndications :Mixed hyperlipidemia Take 1 tablet (20 mg) by mouth Once per day. 90 tablet 1 04/10/20 25 Active fluticasone (Flonase) 50 MCG/ACT nasal sprayIndications: Nasal congestion INHALE 1 TO 2 SPRAYS IN EACH NOSTRIL IN THE MORNING, SHAKE GENTLY BEFORE 1ST USE. PRIME PUMP. AFTER USE CLEAN TIP AND REPLACE CAP 48 g 1 06/13/20 25 Active Diclofenac Sodium 1 % gelIndications:Lo w back pain at multiple sites APPLY 2 GRAMS TOPICALLY EVERY DAY NEEDED FOR MUSCLE PAIN 100 g 3 08/01/20 25 Active cholecalciferol (Vitamin D3) 25 MCG (1000 UT) tablet TAKE ONE TABLET BY MOUTH EVERY MORNING 90 tablet 1 08/14/20 25 Active clindamycin (Cleocin T) 1 % lotion Apply topically 2 times daily. 60 mL 2 10/09/20 25 026 Active clindamycin (Clindagel) 1 % gelIndications:Sk in cysts, generalized APPLY TOPICALLY EVERY MORNING 60 g 2 03/28/20 24 025 Discontinued Clindamycin Phosphate (Clindamycin Phos, Twice-Daily,) 1 % gelIndications:Sk in cysts, generalized APPLY TOPICALLY EVERY MORNING 60 g 2 09/27/20 25 025 Discontinued Active Problems Problem Noted Date Diagnosed Date Bilateral hip pain 10/20/2025 Assessment & Plan (10/20/2025 4:15 PM EST): Orders: XR Hip 2 or 3 Views Left; Future XR Hip 2 or 3 Views Right; Future Comprehensive Metabolic Panel; Future CBC auto differential; Future Sed Rate by Modified Westergren; Future C-reactive Protein; Future XR Lumbar Spine Complete 4+ Views; Future Weakness 10/20/2025 Assessment & Plan (10/20/2025 4:15 PM EST): Orders: Testosterone, Free (Dialysis) And Total, MS; Future TSH W/Reflex to FT4; Future Chest tightness 10/20/2025 Assessment & Plan (10/20/2025 4:15 PM EST): Orders: Referral to Cardiology; Future Hypertension 10/20/2025 Assessment & Plan (10/20/2025 4:15 PM EST): Orders: Referral to Cardiology; Future Hyperglycemia 04/12/2025 Assessment & Plan (04/24/2025 6:04 PM EDT): Pt continue to improve nutrition Hidradenitis 04/12/2025 Assessment & Plan (04/24/2025 6:05 PM EDT): Cyst removed by surgeon, consider doxycyline rx should flare occur Sciatica of left side 04/12/2025 Assessment & Plan (04/24/2025 6:06 PM EDT): Reviewed limited benefit of oral steroids for radiating back pain, pt verbalizes understanding of risks and benefits and wishes to trial Stop medication for failure to improve pain, increased bp or psychiatric side effects Moderately severe major depression (CMS/HCC) Assessment & Plan (02/19/2025 5:16 PM EDT): [...] vigorous-intensity activity 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/2025 Anemia 01/13/2025 Assessment & Plan (08/20/2025 6:52 PM EDT): Improved bp, will trend labs, hx of anemia Pre-diabetes 01/13/2025 Assessment & Plan (02/19/2025 5:16 [...] sites 06/26/2023 Overview (07/26/2023): Care managed by [place] childcare administrator Pending physical therapy Exercise daily Treating with Celebrex 200 mg BID + Voltaren gel Assessment & Plan (07/26/2023 9:01 PM EDT): Encouraged pt to call for physical therapy appt; referral placed Refill meds F/u PRN Anxiety 01/01/2023 Overview (07/26/2023): Stable; [facility] in [place] in person Treating Alprazolam 0.5 mg daily PRN Rx by specialist Risperidone 2 mg nightly Zoloft 100 mg daily Assessment & Plan (07/26/2023 9:00 PM EDT): Continue meds F/u with specialist Depressive disorder 01/01/2023 Overview (07/26/2023): Stable; [facility] in [place] [facility] in person Treating Alprazolam 0.5 mg daily PRN Rx by specialist Risperidone 2 mg nightly Zoloft 100 mg daily Assessment & Plan (07/26/2023 8:59 PM EDT): Continue meds F/u with specialist Osteoarthritis of right ankle 01/01/2023 Posttraumatic stress disorder 01/01/2023 Overview (07/26/2023): Stable; [facility] in [place] in person Treating Alprazolam 0.5 mg daily [...] Encounters Date Type Department Care Team Description 10/20/2025 3:45 PM EST Office Visit [facility] [address] [place] [phone] Cyndi Wilburn, TALIA Bilateral hip pain (Primary Dx); Weakness; Chest tightness; Hypertension, unspecified type 10/20/2025 Travel 10/19/[address] [address] Cyndi Wilburn, TALIA Chart Prep 10/16/2025 10:00 AM EST Clinical Support [facility] DIABETES/NUTRITION [address] [place] [phone] Exogenous obesity (Primary Dx); BMI 40.0-44.9, adult (CMS/HCC) ([facility]) 10/16/2025 Travel 10/09/2025 Travel 10/06/2025 Telephone [facility] [address] [place] [phone] Cyndi Wilburn, TALIA Prior Authorization 09/26/2025 Refill [facility] [address] [place] [phone] Tri Anglin, CHARGING PLUG PLACER Skin cysts, generalized 09/10/2025 Refill [facility] [address] [place] [address] Cyndi Wilburn NP Mixed hyperlipidemia 09/08/2025 10:00 AM EDT Clinical Support [facility] DIABETES/NUTRITION [address] [place] [phone] Extreme obesity (Primary Dx); BMI 40.0-44.9, adult (CMS/HCC) ([facility]) 09/08/2025 Travel 09/01/2025 Travel 08/14/2025 Refill [facility] [address] [place] [address] Cyndi Wilburn NP 08/11/2025 Telephone [facility] [address] [place], [place] [phone] Cyndi Wilburn NP September08/04/2025 10:00 AM EDT Clinical Support [facility] DIABETES/NUTRITION [address] [place] [address] Exogenous obesity (Primary Dx); Body mass index (BMI) of 40.0 to 44.9 in adult ([facility]) 08/04/2025 Travel 08/01/2025 Refill [facility] MED & PEDS [address] [place], [place] [phone] Cyndi Wilburn NP Low back pain at multiple sites 07/28/2025 Travel from Last 3 Months Immunizations Immunization Administration Dates Next Due Hep A, Adult [...] Mass Index 39.05 10/20/2025 3:55 PM EST Plan of Treatment Upcoming Encounters Date Type Department Care Team (Late st Contact Info) Description 11/28/2025 11:30 AM EST Clinical Support [facility] DIABETES/NUTRITION [address] [place], [place] [phone] [address] [place], [place] [phone] 12/11/2025 10:30 AM EST Office Visit [facility] MED[facility] [address] [place] [address] Cyndi Wilburn NP [address] [place], [place] [phone] Health Maintenance Due Date Last Done Comments CT Colonography 1980 Colonoscopy 1980 Colorectal Cancer Screening 1980 FIT DNA/Cologuard 1980 FIT 1980 FOBT 1980 Sigmoidoscopy 1980 Family Planning (PISQ) 1995 HPV Vaccines (1 - Male 3-dose series) 1995 Depression Monitoring 07/13/2025 01/13/2025, 024 COVID-19 Vaccine (3 - season) 2025 07/16/2021, 06/25/2021 Influenza Vaccine (#1) 2025 Alcohol/Substance Use Screening 01/13/2026 01/13/2025 SDOH Screening 01/13/2026 01/13/2025 Diabetes: Hemoglobin A1C 04/12/2026 025, 04/05/2025, 10/18/2024, Additional history exists Disability Screening 07/18/2026 07/18/2025 Tobacco Screening 10/20/2026 10/20/2025 Lipid Panel 10/18/2029 10/18/2024, 08, 01/02/2023, Additional [...] patient's age to complete this topic Meningococcal B Vaccine Aged Out No l onger eligible based on patient's age to complete this topic Meningococcal Vaccine Aged Out No carlos matt eligible based on patient's age to complete this topic Pneumococcal Vaccine: Pediatrics (0 to 5 Years) and At-Risk Patients (6 to 49) Years Aged Out No longer eligible based on patient's age to complete this topic RSV under 20 months Aged Out No longe r eligible based on patient's age to complete this topic Rotavirus Vaccines Aged Out No longer eligible based on patient's age to complete this topic Procedures Procedure Name Priority Date/Time Associated Diagnosis Comments POCT GLYCATED HEMOGLOBIN, TOTAL Routine 04/12/2025 10:49 AM EDT Hyperglycemia LIPID PANEL, STANDARD Routine 10/18/2024 1:42 PM [...] Recently Relevant to Health Maintenance Results * POCT HGB A1C (04/12/2025 10:49 AM EDT) Hemoglobin A1C 5.7 4.0 - 6.0 % QC Media Lot # [id number] Lot# Expiration Date Blood 04/12/2025 10:4 9 AM EDT Cyndi Wilburn NP POINT OF CARE TEST ENTER/EDIT OR DERABLES Final Result * (ABNORMAL) Lipid Panel, Standard (10/18/2024 1:42 PM EST) Triglycerides 283(H) <150 mg/dL [facility] Comment:Desirable Triglyceri de: less than 150 mg/dLBorderline High Triglyceride 150-199 mg/dLHigh Triglyceride: 200-499 mg/dLVery High Triglyceride: greater than or equal to 5OO mg/dL Cholesterol 162 <200 mg/dL [facility] Comment:Desirable Cholestero l: less than 200 mg/dLBorderline High Cholesterol: 200-239 mg/dLHigh Cholesterol: greater than 239 mg/dL LDL Cholesterol Calculated 74 <100 mg/dL [facility] Comment:Desirable LDL: less than 100 mg/dLNear Optimal/Above Optimal LDL: 110- 129 mg/dLBorderline High LDL: 130-159 mg/dLHigh LDL: 160-189 mg/dLVery High LDL: greater than or equal to 190 mg/dL HDL Cholesterol 32(L) >40 mg/dL [facility] Comment:Desirable HDL: great er than 40 mg/dL Note: This HDL assay may give artificially low results in patients with liver disease. Blood Venous blood specimen / Unknown 10/18/2024 1:42 PM EST 10/18/2024 4:07 PM EST Cyndi Wilburn JUNIOR ACCOUNTANT BOOKKEEPER LAB BLOOD ORDERABLES Final Resul t Performing Organization Address [facility] de Phone Number [facility] [address] [place] [phone] * HEPATITIS C AB W/REFL TO HCV RNA, QN, PCR (12/09/2021 9:18 AM EST) HEPATITIS C ANTIBODY NON-REACT [facility] NON-REACT [facility] INDEX 0.09 <1.00 [facility] Comment: HCV antibody was non-reactive. There is no laboratory evidence of HCV infection. In most cases, no further action is required. However, if recent HCV exposure is suspected, a test for HCV RNA (test code 91984) is suggested. For additional information please refer to http://education.[employer]/faq/THA75m6 (This link is being provided for informational/ educational purposes only.) 12/09/2021 9:18 AM EST us Erin Castaneda CHARGING PLUG PLACER HISTORICAL/NON ORDERABLE L ABS Final Result Performing Organization Address [facility] Co de Phone Number [facility] [address] * HIV 1/2 ANTIGEN/ANTIBODY,FOURTH GENERATION W/RFL (12/09/2021 9:18 AM EST) HIV-1/2 ANTIGEN AND ANTIBODIES, 4TH GENERATION W/ REFLEX NON-REACT JONAH NON-REACT JONAH [facility] Comment: HIV-1 antigen and HIV-1/HIV-2 antibodies were not detected. There is no laboratory evidence of HIV infection. PLEASE NOTE: This information has been disclosed to you from records whose confidentiality may be protected by state law. If your state requires such protection, then the state law prohibits you from making any further disclosure of the information without the specific written consent of the person to whom it pertains, or as otherwise permitted by law. A general authorization for the release of medical or other information is NOT sufficient for this purpose. For additional information please refer to http://[employer]/faq/CYK439 (This link is being provided for informational/ educational purposes only.) The performance of this assay has not been clinically validated in patients less than 2 years old. 12/09/2021 9:18 AM EST Erin Castaneda CHARGING PLUG PLACER LAB BLOOD ORDERABLES Final Result Performing Organization Address City/State/[facility] Co de Phone Number [facility] [address] from Last 3 Months or Most Recently Relevant to Health Maintenance Insurance [place] [address] [place] [address] [place] [id number] [facility] Care Teams Senior Energy Market Coordinator Relationship Specialty Start Date End Date Cyndi Wilburn NP [address] [place] [phone] PCP - General Family Medicine 08/02/24
--- OUTSIDE RECORDS SUMMARY | 2025-10-23 08:53 | XMS_ITS | Encounter Summary ---
Author Organization [employer] Address [address] [facility] [address]t [place] [address] Care Team Providers Care Senior Financial Reporting Accountant Name Role Phone Cyndi Wilburn NP Primary Care Provider [phone] Reason for Visit * Reason Onset Date Comments Chart Prep 10/19/2025 Encounter Details Date Type Department Care Team ([facility] Contact Info) Description 10/19/2025 Telephone [facility] MED[facility] [address] [place], [place] [phone] Cyndi Wilburn NP [address] [place] [address] Chart Prep Social History Tobacco Use Types Packs/Day Years [...] encounter Miscellaneous Notes * Telephone Encounter - [place] - 10/19/2025 2:54 PM EST Chart Prep Labs: done Images: done Referrals: complete Vaccines due: Covid, Flu, and HPV Screenings: colonoscopy Overdue care gaps: Tobacco documented in this encounter Plan of Treatment Upcoming Encounters Date Type Department Care Team (Late st Contact Info) Description 11/28/2025 11:30 AM EST Clinical Support [facility] DIABETES/NUTRITION [address] [place] [address] [place] [address] 12/11/2025 10:30 AM EST Office Visit [facility] MEDICINE [address] [place] [address] Cyndi Wilburn NP [address] [place] [address] documented as of this encounter Visit Diagnoses Not on filedocumented in this encounter Additional Health Concerns Assessment Noted Time PHQ-9 Depression Total Score: 19 024 10:39 AM EDT documented as of this encounter Care Teams Senior Financial Reporting Accountant Relationship Specialty Start Date End Date Cyndi Wilburn NP [address] [place] [address] PCP - General Family Medicine 08/02/24 documented as of this encounter
--- OUTSIDE RECORDS SUMMARY | 2025-10-23 08:53 | XMS_ITS | Encounter Summary ---
Author Organization [employer] Address [address] [facility] 7t [place] [address] Care Team Providers Care Public Relations Studies Director Name Role Phone Cyndi Wilburn NP Primary Care Provider [phone] Reason for Visit * Reason Comments Med Refill Encounter Details Date Type Department Care Team ([facility] st Contact Info) Description 02/14/2025 Refill [facility] [address] [place], [place] [phone] Cyndi Wilburn NP [address] [place] [address] Low back pain at multiple sites Social [...] Description 11/28/2025 11:30 AM EST Clinical Support [facility] DIABETES/NUTRITION [address] [place] [address] [place] [address] 12/11/2025 10:30 AM EST Office Visit [facility] [address] [place] [address] Cyndi Wilburn NP [address] [place] [address] documented as of this encounter Visit Diagnoses Diagnosis Low back pain at multiple sites documented in this encounter Additional Health Concerns Assessment Noted Time PHQ-9 Depression Total Score: 19 024 10:39 AM EDT documented as of this encounter Care Teams Public Relations Studies Director Relationship Specialty Start Date End Date Cyndi Wilburn NP [address] [place] [address] PCP - General Family Medicine 08/02/24 documented as of this encounter
--- OUTSIDE RECORDS SUMMARY | 2025-10-23 08:53 | XMS_ITS | Encounter Summary ---
Author Organization [employer] Address [address] [facility] 7t [place] [address] Care Team Providers Care Pipe Foreman Name Role Phone Cyndi Wilburn TALIA Primary Care Provider [phone] Encounter Details Date Type Department Care Team (Latest Contact Info) Description 10/20/2025 Travel Social History Tobacco Use Types Packs/Day [...] Description 11/28/2025 11:30 AM EST Clinical Support [facility] DIABETES/NUTRITION [address] [place] [address] [place] [address] 12/11/2025 10:30 AM EST Office Visit [facility] MEDICINE [address] [place] [address] Cyndi Wilburn NP [address] [place] [address] documented as of this encounter Visit Diagnoses Not on filedocumented in this encounter Additional Health Concerns Assessment Noted Time PHQ-9 Depression Total Score: 19 024 10:39 AM EDT documented as of this encounter Care Teams Pipe Foreman Relationship Specialty Start Date End Date Cyndi Wilburn NP [address] [place] [address] PCP - General Family Medicine 08/02/24 documented as of this encounter
--- OUTSIDE RECORDS SUMMARY | 2025-10-23 08:53 | XMS_ITS | Encounter Summary ---
Author Organization [employer] Address 75 [facility] 7t [place] [address] Care Team Providers Care Shirring Machine Operator Automatic Name Role Phone Cyndi Wilburn NP Primary Care Provider [phone] Reason for Visit * Reason Comments Med Refill Encounter Details Date Type Department Care Team ([facility] Contact Info) Description 09/10/2025 Refill [facility] MEDICINE [address] [place], [place] [phone] Cyndi Wilburn NP [address] [place] [address] Mixed hyperlipidemia Social History Tobacco Use Types Packs/Day Years [...] Description 11/28/2025 11:30 AM EST Clinical Support [facility] DIABETES/NUTRITION [address] [place] [address] [place] [address] 12/11/2025 10:30 AM EST Office Visit [facility] MEDICINE [address] [place] [address] Cyndi Wilburn NP [address] [place] [address] documented as of this encounter Visit Diagnoses Diagnosis Mixed hyperlipidemia documented in this encounter Additional Health Concerns Assessment Noted Time PHQ-9 Depression Total Score: 19 024 10:39 AM EDT documented as of this encounter Care Teams Shirring Machine Operator Automatic Relationship Specialty Start Date End Date Cyndi Wilburn NP [address] [place] [address] PCP - General Family Medicine 08/02/24 documented as of this encounter
--- OUTSIDE RECORDS SUMMARY | 2025-10-23 08:54 | XMS_ITS | Encounter Summary ---
Author Organization [employer] Address [address] [place] [address] 7t [place] [address] Care Team Providers Care Digital Cartographic Technician Name Role Phone Erin Castaneda RAILROAD YARD WORKER Primary Care Provider Nancy vailable Tara Spears TAX SPECIALIST Primary Care Provider [phone] Tri Anglin RAILROAD YARD WORKER Primary Care Provider [phone] Cyndi Wilburn TAX SPECIALIST Primary Care Provider [phone] Reason for Visit * Reason Comments Med Refill Encounter Details Date Type Department Care Team (Late st Contact Info) Description 02/03/2023 Refill [facility] MEDICINE [address] [place] [phone] Erin Castaneda FNP Nasal congestion Social History Tobacco Use Types [...] Description 11/28/2025 11:30 AM EST Clinical Support [facility] DIABETES/NUTRITION [address] [place] [address] [place] [address] 12/11/2025 10:30 AM EST Office Visit [facility] MEDICINE [address] [place] [address] Cyndi Wilburn NP [address] [place] [address] documented as of this encounter Visit Diagnoses Diagnosis Nasal congestion Other diseases of nasal cavity and sinuses documented in this encounter Care Teams Digital Cartographic Technician Relationship Specialty Start Date End Date Erin Castaneda FNP PCP - General Family Medicine 02/19/22 09/03/23 Tara Spears NP [address] [place] [address] PCP - General Family Medicine 09/04/23 12/01/23 Tri Anglin FNP [address] [place] [address] PCP - General Family Medicine 12/02/23 08/01/24 Cyndi Wilburn NP [address] [place] [address] PCP - General Family Medicine 08/02/24 documented as of this encounter
--- OUTSIDE RECORDS SUMMARY | 2025-10-23 08:54 | XMS_ITS | Encounter Summary ---
Author Organization [employer] Address [address] [facility] 7t [place] [address] Care Team Providers Care Hypnotherapist Name Role Phone Erin Castaneda RARE/ENDANGERED SPECIES SPECIALIST Primary Care Provider Nancy vailaTara Steele ELECTRICAL CONSTRUCTION PROJECT MANAGER Primary Care Provider [phone] Tri Anglin RARE/ENDANGERED SPECIES SPECIALIST Primary Care Provider [phone] Cyndi Wilburn ELECTRICAL CONSTRUCTION PROJECT MANAGER Primary Care Provider [phone] Encounter Details Date Type Department Care Team (Late st Contact Info) Description 12/10/2022 Orders Only [facility] MEDICINE [address] [place] [address] Estefania Stafford LPN Social History Tobacco Use [...] Department Care Team (Late Contact Info) Description 11/28/2025 11:30 AM EST Clinical Support [facility] DIABETES/NUTRITION [address] [place] [address] [place] [address] 12/11/2025 10:30 AM EST Office Visit [facility] MEDICINE [address] [place] [address] Cyndi Wilburn NP [address] [place] [address] documented as of this encounter Visit Diagnoses Not on filedocumented in this encounter Care Teams Hypnotherapist Relationship Specialty Start Date End Date Erin Castaneda FNP PCP - General Family Medicine 02/19/22 09/03/23 Tara Spears NP [address] [place] [address] PCP - General Family Medicine 09/04/23 12/01/23 Tri Anglin FNP [address] [place] [address] PCP - General Family Medicine 12/02/23 08/01/24 Cyndi Wilburn NP [address] [place] [address] PCP - General Family Medicine 08/02/24 documented as of this encounter
[2025-10-23 11:10] LABS: MANUAL DIFF FLAG NO
[2025-10-23 11:27] LABS: Hematocrit 40.4 % (42.0-52.0); Hemoglobin 13.5 g/dl (14.0-18.0); Imm Gran Abs Auto 0.00 X10*3/uL (0.00-0.03); Imm Gran Pct Auto 0.0 % (0.0-0.4); Lymphocytes Absolute Auto 1.5 X10*3/uL (1.2-4.9); Mean Corpuscular HGB Conc 33.4 g/dl (31.0-36.0); Mean Corpuscular Hemoglobin 29.7 pg (27.0-33.0); Mean Corpuscular Volume 89.0 fL (80.0-98.0); NRBC Abs Auto 0.000 X10*3/uL (0.0-0.012); NRBC Pct Auto 0.0 /100WBC (0.0-0.2); Platelet Count 190 X10*3/uL (160-400); Red Blood Count 4.54 X10*6/uL (4.60-5.80); White Blood Count 4.8 X10*3/uL (4.8-10.8)
[2025-10-23 14:37] LABS: Alanine Aminotransferase 32 U/L (0-40); Albumin Level 4.5 g/dL (3.5-5.0); Alkaline Phosphatase 65 U/L (39-117); Anion Gap 11 (12-20); Aspartate Amino Transferase 35 U/L (5-37); Blood Urea Nitrogen 14 mg/dL (9-16); Calcium 9.3 mg/dL (8.4-10.2); Carbon Dioxide 27 mmol/L (22-29); Chloride 107 mmol/L (96-108); Estimated Glomerular Filt Rate > 60; Potassium 4.2 mmol/L (3.3-5.1); Sodium 141 mmol/L (135-145); Total Protein 7.9 g/dL (6.5-8.0)
== END 2025-10-23 08:35 | disposition home or self-care (01) ==
LOC: HO.HHCL 08:34
PROVIDERS: PCP Nurse Practitioner Family; Visit Provider Nurse Practitioner Family
DX: M25.552 Pain in left hip (principal); M25.551 Pain in right hip; M54.50 Low back pain, unspecified; R10.20 Pelvic and perineal pain unspecified side; R53.1 Weakness
CPT/HCPCS: 36415; 72110; 73502; 80053; 84402; 84403; 84443; 85025; 85652; 86140

== ENCOUNTER → 2025-10-23 09:03 | Outpatient (BNV) | payer MEDICARE, MEDICAID, SELFPAY | PROVIDERS: PCP Nurse Practitioner Family; Visit Provider Radiology Diagnostic Ultrasound | DX: M25.551 Pain in right hip (principal); M25.552 Pain in left hip | CPT/HCPCS: 73502 ==

== ENCOUNTER 2025-11-24 02:18 | Emergency (ER) | payer MEDICARE, MEDICAID, SELFPAY ==
--- NOTE | 2025-11-24 | ECG_ITS ---
Test Reason : SYNCOPE Blood Pressure : */* mmHG Vent. Rate : 58 BPM Atrial Rate : 58 BPM P-R Int : 176 ms QRS Dur : 88 ms QT Int : 420 ms P-R-T Axes : 14 -12 8 degrees QTcB Int : 412 ms Sinus bradycardia Otherwise normal ECG No previous ECGs available Referred By: Generic ED Physician Electronically Signed By: JOHANNA BAHENA MD
--- NOTE | ~2025-11-24 | CT_ITS ---
CLINICAL HISTORY: Syncope; Head Strike; Unknown downtime CT head without contrast Comparison: None provided Findings: No intra-axial mass, midline shift, hydrocephalus, or acute hemorrhage. No significant atrophy-like change or white matter disease. The visualized paranasal sinuses and mastoid air cells are normal. The orbits are within normal limits. No skull fracture. IMPRESSION: 1. No acute intracranial findings. This document has been electronically signed by: Roe Angel MD on 11/24/2025 05:28:55
--- NOTE | ~2025-11-24 | CT_ITS ---
CLINICAL HISTORY: Syncope; Headstrike CT cervical spine without contrast Comparison: None provided Findings: Vertebral alignment is within normal limits. No significant degenerative change. No acute fractures or dislocations. No acute findings on limited view of the intracranial contents. No cervical fluid collections or masses. Lung apices are clear. IMPRESSION: No acute findings. This document has been electronically signed by: Roe Angel MD on 11/24/2025 05:26:05
[2025-11-24 02:21] VITALS: BP 121/76; PULSE 70; RESP 18; TEMP 36.5; O2SAT 100; BMI 37.6
[2025-11-24 02:59] VITALS: BP 103/63; PULSE 66; RESP 18; TEMP 36.6; O2SAT 97
[2025-11-24 03:09] LABS: Hematocrit 37.6 % (42.0-52.0); Hemoglobin 12.9 g/dl (14.0-18.0); Imm Gran Abs Auto 0.01 X10*3/uL (0.00-0.03); Imm Gran Pct Auto 0.2 % (0.0-0.4); Lymphocytes Absolute Auto 2.0 X10*3/uL (1.2-4.9); MANUAL DIFF FLAG NO; Mean Corpuscular HGB Conc 34.3 g/dl (31.0-36.0); Mean Corpuscular Hemoglobin 30.3 pg (27.0-33.0); Mean Corpuscular Volume 88.3 fL (80.0-98.0); NRBC Abs Auto 0.000 X10*3/uL (0.0-0.012); NRBC Pct Auto 0.0 /100WBC (0.0-0.2); Platelet Count 200 X10*3/uL (160-400); Red Blood Count 4.26 X10*6/uL (4.60-5.80); White Blood Count 6.1 X10*3/uL (4.8-10.8)
[2025-11-24 03:22] LABS: Alanine Aminotransferase 35 U/L (0-40); Albumin Level 4.3 g/dL (3.5-5.0); Alkaline Phosphatase 58 U/L (39-117); Anion Gap 12 (12-20); Aspartate Amino Transferase 34 U/L (5-37); Blood Urea Nitrogen 16 mg/dL (9-16); Calcium 9.1 mg/dL (8.4-10.2); Carbon Dioxide 24 mmol/L (22-29); Chloride 108 mmol/L (96-108); Creatinine Clr Calc Pharmacy 133.9; Estimated Glomerular Filt Rate > 60; Potassium 4.1 mmol/L (3.3-5.1); Sodium 140 mmol/L (135-145); Total Protein 7.3 g/dL (6.5-8.0)
--- OUTSIDE RECORDS SUMMARY | 2025-11-24 03:30 | XMS_ITS | Encounter Summary ---
Author Organization [employer] Address [address] [facility] [facility] 7t [place] [address] Care Team Providers Care Vice President Of Academic Affairs Name Role Phone Cyndi Wilburn NP Primary Care Provider [phone] Reason for Visit * Reason Comments Med Refill Encounter Details Date Type Department Care Team ([facility] st Contact Info) Description 02/14/2025 Refill [facility] MEDICINE [address] [place], [place] [phone] Cyndi Wilburn NP [address] [place] [address] Low back pain at multiple sites Social [...] Description 11/28/2025 11:30 AM EST Clinical Support [facility] DIABETES/NUTRITION [address] [place] [address] [place] [address] 12/11/2025 10:30 AM EST Office Visit [facility] MEDICINE [address] [place] [address] Cyndi Wilburn NP [address] [place] [address] documented as of this encounter Visit Diagnoses Diagnosis Low back pain at multiple sites documented in this encounter Additional Health Concerns Assessment Noted Time PHQ-9 Depression Total Score: 19 024 10:39 AM EDT documented as of this encounter Care Teams Vice President Of Academic Affairs Relationship Specialty Start Date End Date Cyndi Wilburn NP [address] [place] [address] PCP - General Family Medicine 08/02/24 documented as of this encounter
--- OUTSIDE RECORDS SUMMARY | 2025-11-24 03:30 | XMS_ITS | Encounter Summary ---
Author Organization [employer] Address 75 [facility] 7t [place] [address] Care Team Providers Care Track Laying Machine Operator Name Role Phone Cyndi Wilburn TALIA Primary Care Provider [phone] Encounter Details Date Type Department Care Team (Latest Contact Info) Description 11/21/2025 Travel Social History Tobacco Use Types Packs/Day [...] Description 11/28/2025 11:30 AM EST Clinical Support [facility] DIABETES/NUTRITION [address] [place] [address] [place] [address] 12/11/2025 10:30 AM EST Office Visit [facility] MEDICINE [address] [place] [address] Cyndi Wilburn NP [address] [place] [address] documented as of this encounter Visit Diagnoses Not on filedocumented in this encounter Additional Health Concerns Assessment Noted Time PHQ-9 Depression Total Score: 19 024 10:39 AM EDT documented as of this encounter Care Teams Track Laying Machine Operator Relationship Specialty Start Date End Date Cyndi Wilburn NP [address] [place] [address] PCP - General Family Medicine 08/02/24 documented as of this encounter
--- OUTSIDE RECORDS SUMMARY | 2025-11-24 03:30 | XMS_ITS | Encounter Summary ---
Author Organization [employer] Address 75 [facility] 7t [place] [address] Care Team Providers Care Regional Retail Sales Manager Name Role Phone Cyndi Wilburn NP Primary Care Provider [phone] Reason for Visit * Reason Comments Med Refill Encounter Details Date Type Department Care Team ([facility] Contact Info) Description 09/10/2025 Refill [facility] MEDICINE [address] [place], [place] [phone] Cyndi Wilburn NP [address] [place] [address] Mixed hyperlipidemia Social History Tobacco Use Types [...] Description 11/28/2025 11:30 AM EST Clinical Support [facility] DIABETES/NUTRITION [address] [place] [address] [place] [address] 12/11/2025 10:30 AM EST Office Visit [facility] MEDICINE [address] [place] [address] Cyndi Wilburn NP [address] [place] [address] documented as of this encounter Visit Diagnoses Diagnosis Mixed hyperlipidemia documented in this encounter Additional Health Concerns Assessment Noted Time PHQ-9 Depression Total Score: 19 024 10:39 AM EDT documented as of this encounter Care Teams Regional Retail Sales Manager Relationship Specialty Start Date End Date Cyndi Wilburn NP [address] [place] [address] PCP - General Family Medicine 08/02/24 documented as of this encounter
--- OUTSIDE RECORDS SUMMARY | 2025-11-24 03:30 | XMS_ITS | Encounter Summary ---
Author Organization [employer] Address [address] [place] [address] 7t [place] [address] Care Team Providers Care Microwave Supervisor Name Role Phone Erin Castaneda BUSINESS ADVISOR Primary Care Provider Nancy vailable Tara Spears ARBOR PRESS OPERATOR Primary Care Provider [phone] Tri Agnlin BUSINESS ADVISOR Primary Care Provider [phone] Cyndi Wilburn ARBOR PRESS OPERATOR Primary Care Provider [phone] Reason for Visit * Reason Comments Med Refill Encounter Details Date Type Department Care Team (Late st Contact Info) Description 02/03/2023 Refill [facility] MEDICINE [address] [place] [address] Erin Castaneda FNP Nasal congestion Social History [...] 11:30 AM EST Clinical Support [facility] DIABETES/NUTRITION [address] [place] [address] [place] [address] 12/11/2025 10:30 AM EST Office Visit [facility] MEDICINE [address] [place] [address] Cyndi Wilburn NP [address] [place] [address] documented as of this encounter Visit Diagnoses Diagnosis Nasal congestion Other diseases of nasal cavity and sinuses documented in this encounter Care Teams Microwave Supervisor Relationship Specialty Start Date End Date Erin Castaneda FNP PCP - General Family Medicine 02/19/22 09/03/23 Tara Spears NP [address] [place] [address] PCP - General Family Medicine 09/04/23 12/01/23 Tri Anglin FNP [address] [place] [address] PCP - General Family Medicine 12/02/23 08/01/24 Cyndi Wilburn NP [address] [place] [address] PCP - General Family Medicine 08/02/24 documented as of this encounter
--- OUTSIDE RECORDS SUMMARY | 2025-11-24 03:30 | XMS_ITS | Encounter Summary ---
Author Organization [employer] Address 75 [facility] 7t [place] [address] Care Team Providers Care Retail General Manager Name Role Phone Erin Castaneda BLEACHER PULP Primary Care Provider Nancy vailaTara Steele CENTRIFUGAL SPINNER Primary Care Provider [phone] Tri Anglin BLEACHER PULP Primary Care Provider [phone] Cyndi Wilburn CENTRIFUGAL SPINNER Primary Care Provider [phone] Encounter Details Date Type Department Care Team (Late st Contact Info) Description 12/10/2022 Orders Only [facility] MEDICINE [address] [place] [address] Estefania Stafford LPN Social History Tobacco Use [...] Description 11/28/2025 11:30 AM EST Clinical Support [facility] DIABETES/NUTRITION [address] [place] [address] [place] [address] 12/11/2025 10:30 AM EST Office Visit [facility] MEDICINE [address] [place] [address] Cyndi Wilburn NP [address] [place] [address] documented as of this encounter Visit Diagnoses Not on filedocumented in this encounter Care Teams Retail General Manager Relationship Specialty Start Date End Date Erin Castaneda FNP PCP - General Family Medicine 02/19/22 09/03/23 Tara Spears NP [address] [place] [address] PCP - General Family Medicine 09/04/23 12/01/23 Tri Anglin FNP [address] [place] [address] PCP - General Family Medicine 12/02/23 08/01/24 Cyndi Wilburn NP [address] [place] [address] PCP - General Family Medicine 08/02/24 documented as of this encounter
--- OUTSIDE RECORDS SUMMARY | 2025-11-24 03:30 | XMS_ITS | Clinical Summary ---
Author Organization [employer] Address [address] [facility] [address] [place] [address] Care Team Providers Care Diesel Technician Name Role Phone CosmoCyndi TALIA Primary Care Provider Allergies No known active allergies Medications ALPRAZolam (Xanax) 0.5 MG tablet Take 0.5 mg by mouth if needed each day. 05/26/20 22 Active risperiDONE (RisperDAL) 2 MG tablet Take 2 mg by mouth at bedtime. 12/10/19 23 Active sertraline (Zoloft) 100 MG tablet Take 200 mg by mouth in the morning. 12/03/19 23 Active fluticasone (Flonase) 50 MCG/ACT nasal sprayIndications: [...] 60 mL 2 10/09/20 25 026 Active atorvastatin (Lipitor) 20 MG tabletIndications :Mixed hyperlipidemia TAKE ONE TABLET BY MOUTH EVERY DAY 90 tablet 1 11/13/20 25 Active atorvastatin (Lipitor) 20 MG tabletIndications :Mixed hyperlipidemia Take 1 tablet (20 mg) by mouth Once per day. 90 tablet 1 05 025 Discontinued Active Problems Problem Noted Date Diagnosed Date Bilateral hip pain 10/20/2025 Assessment & Plan (10/23/2025 11:57 AM EST): Orders: XR Hip 2 or 3 Views Left; Future XR Hip 2 or 3 Views Right; Future Comprehensive Metabolic Panel; Future CBC auto differential; Future Sed Rate by Modified Westergren; Future C-reactive Protein; Future XR Lumbar Spine Complete 4+ Views; Future Weakness 10/20/2025 Assessment & Plan (10/23/2025 11:57 AM EST): Orders: Testosterone, Free (Dialysis) And Total, MS; Future TSH W/Reflex to FT4; Future Chest tightness 10/20/2025 Assessment & Plan (10/23/2025 11:57 AM EST): Orders: Referral to Cardiology; Future Hypertension 10/20/2025 Assessment & Plan (10/23/2025 11:57 AM EST): Orders: Referral to Cardiology; Future Hyperglycemia [...] sites 06/26/2023 Overview (07/26/2023): Care managed by [facility] Pending physical therapy Exercise daily Treating with Celebrex 200 mg BID + Voltaren gel Assessment & Plan (07/26/2023 9:01 PM EDT): Encouraged pt to call for physical therapy appt; referral placed Refill meds F/u PRN Anxiety 01/01/2023 Overview (07/26/2023): Stable; [facility] in [place] in person Treating Alprazolam 0.5 mg daily PRN Rx by specialist Risperidone 2 mg nightly Zoloft 100 mg daily Assessment & Plan (07/26/2023 9:00 PM EDT): Continue meds F/u with specialist Depressive disorder 01/01/2023 Overview (07/26/2023): Stable; [facility] in [place] in person Treating Alprazolam 0.5 mg daily PRN Rx by specialist Risperidone 2 mg nightly Zoloft 100 mg daily Assessment & Plan (07/26/2023 8:59 PM EDT): Continue meds F/u with specialist Osteoarthritis of right ankle 01/01/2023 Posttraumatic stress disorder 01/01/2023 Overview (07/26/2023): Stable; [facility] in [place] in person Treating Alprazolam 0.5 mg daily [...] Encounters Date Type Department Care Team Description 11/21/2025 Travel 11/12/2025 Refill [facility] [place] [address] Cyndi Wilburn NP Mixed hyperlipidemia 10/23/2025 Results Follow-Up [facility] [place] [place] [address] Cyndi Wilburn NP Comprehensive Metabolic Panel, CBC auto differential, Sed Rate by Modified Westergren, Additional followed-up results: 2 10/20/2025 3:45 PM EST Office Visit [facility] [place] [address] Cyndi Wilburn NP Bilateral hip pain (Primary Dx); Weakness; Chest tightness; Hypertension, unspecified type 10/20/2025 Travel 10/19/2025 Telephone [facility] [place] [address] Cyndi Wilburn NP Chart Prep 10/16/2025 10:00 AM EST Clinical Support [facility] DIABETES/[place] [address] Exogenous obesity (Primary Dx); BMI 40.0-44.9, adult ([facility]) ([facility]) 10/16/2025 Travel 10/09/2025 Travel 10/06/2025 Telephone [facility] [place] [address] Cyndi Wilburn NP Prior Authorization 09/26/2025 Refill [facility] [place] [address] Tri Anglin, RECORDING ENGINEER Skin cysts, generalized 09/10/2025 Refill [facility] [place] [address] Cyndi Wilburn NP Mixed hyperlipidemia 09/08/2025 10:00 AM EDT Clinical Support [facility] DIABETES/[place] [address] Extreme obesity (Primary Dx); BMI 40.0-44.9, adult (CMS/HCC) (HCC) 09/08/2025 Travel 09/01/2025 Travel from Last 3 Months Immunizations Immunization [...] Description 11/28/2025 11:30 AM EST Clinical Support [facility]NUTRITION [address] [place] [address] Hyun Bates, LOPEZ [address] [place] [address] 12/11/2025 10:30 AM EST Office Visit [facility] [address] [place] [address] Cyndi Wilburn NP [address] [place] [address] Health Maintenance Due Date Last Done Comments CT Colonography 1980 Colonoscopy 1980 Colorectal Cancer Screening 1980 FIT DNA/Cologuard 1980 FIT 1980 FOBT 1980 Sigmoidoscopy 1980 Family Planning (PISQ) 1995 HPV Vaccines (1 - Male 3-dose series) 1995 Depression Monitoring 07/13/2025 01/13/2025, 024 COVID-19 Vaccine ( season) 2025 07/16/2021, 06/25/2021 Influenza Vaccine (#1) 2025 Alcohol/Substance Use Screening 01/13/2026 01/13/2025 SDOH Screening 01/13/2026 01/13/2025 Diabetes: Hemoglobin A1C 04/12/2026 025, 04/05/2025, 10/18/2024, Additional history exists Disability Screening 07/18/2026 07/18/2025 Tobacco Screening 10/20/2026 10/20/2025 Lipid Panel 10/18/2029 10/18/2024, 06/30, 01/02/2023, Additional [...] Procedure Name Priority Date/Time Associated Diagnosis Comments COMPREHENSIVE METABOLIC PANEL Routine 11/24/2025 3:02 AM EST CBC WITH AUTO DIFFERENTIAL Routine 11/24/2025 3:02 AM EST XR LUMBAR SPINE COMPLETE 4+ VIEWS Routine 10/23/2025 10:00 AM EST Bilateral hip pain XR HIP 2 OR 3 VIEWS RIGHT Routine 10/23/2025 9:35 AM EST Bilateral hip pain XR HIP 2 OR 3 VIEWS LEFT Routine 10/23/2025 9:32 AM EST Bilateral hip pain TSH W/REFLEX TO FT4 Routine 10/23/2025 8 :43 AM EST Weakness C-REACTIVE PROTEIN Routine 10/23/2025 8: 43 AM EST Bilateral hip pain SED RATE BY MODIFIED WESTERGREN Routine 10/23/2025 8:43 AM EST Bilateral hip pain CBC WITH AUTO DIFFERENTIAL Routine 10/23/2025 8:43 AM EST Bilateral hip pain TESTOSTERONE, FREE, BIOAVAILABLE AND TOTAL, MALES (ADULT), [place] Routine 10/23/2025 8:43 AM EST Weakness COMPREHENSIVE METABOLIC PANEL Routine 10/23/2025 8:43 AM EST Bilateral hip pain POCT GLYCATED HEMOGLOBIN, TOTAL Routine 04/12/2025 10:49 [...] Maintenance Results * (ABNORMAL) CBC auto differential (11/24/2025 3:02 AM EST) Only the most recent of2 resultswithin the time period is included. White Blood Count 6.1 4.8 - 10.8 X10*3/uL [facility] Red Blood Count 4.26(L) 4.60 - 5.80 X10*6/uL [facility] Hemoglobin 12.9(L) 14.0 - 18.0 g/dl [facility] Hematocrit 37.6(L) 42.0 - 52.0 % [facility] Mean Corpuscular Volume 88.3 80.0 - 98.0 fL [facility] Mean Corpuscular Hemoglobin 30.3 27.0 - 33.0 pg [facility] Mean Corpuscular HGB Conc 34.3 31.0 - 36.0 g/dl [facility] Red Cell Distribution Width 12.7 11.0 - 16.0 % [facility] Platelet Count 200 160 - 400 X10*3/uL [facility] Mean Platelet Volume 10.0 9.4 - 12.4 fL [facility] Neutrophils Percent Auto 52.6 45 - 73 % [facility] Imm Gran Pct Auto 0.2 0.0 - 0.4 % [facility] Lymphocytes Percent Auto 32.6 20 - 40 % [facility] Monocytes Percent Auto 9.4 2 - 11 % [facility] Eosinophils Percent Auto 4.9(H) 0 - 4 % [facility] Basophils Percent Auto 0.3 0 - 2 % [facility] NRBC Pct Auto 0.0 0.0 - 0.2 /100WBC [facility] Neutrophils Absolute Auto 3.2 2.0 - 8.3 x10*3/uL [facility] Imm Gran Abs Auto 0.01 0.00 - 0.03 X10*3/uL [facility] Lymphocytes Absolute Auto 2.0 1.2 - 4.9 X10*3/uL [facility] Monocytes Absolute Auto 0.6 0.1 - 1.2 X10*3/uL [facility] Eosinophils Absolute Auto 0.3 0.0 - 0.4 X10*3/uL [facility] Basophils Absolute Auto 0.0 0.0 - 0.2 X10*3/uL [facility] NRBC Abs Auto 0.000 0.0 - 0.012 X10*3/uL [facility] 11/24/2025 3:02 AM EST 11/24/2025 3:07 AM EST us Generic External Data Provider LAB BLOOD ORDERAB LES Final Result [facility] [address] [place] [address] [phone] * (ABNORMAL) Comprehensive Metabolic Panel (11/24/2025 3:02 AM EST) Only the most recent of2 resultswithin the time period is included. Sodium 140 135 - 145 mmol/L [facility] Potassium 4.1 3.3 - 5.1 mmol/L [facility] Chloride 108 96 - 108 mmol/L [facility] Carbon Dioxide 24 22 - 29 mmol/L [facility] Anion Gap 12 12 - 20 [facility] Urea Nitrogen (BUN) 16 9 - 16 mg/dL [facility] Creatinine, Serum 1.01 0.5 - 1.4 mg/dL [facility] Creatinine Clr Calc Pharmacy 133.9 [facility] Comment:eGFR (calculated fro m the MDRD study equation) and eCrCl(calculated from the Cockcroft-Gault equation) are based ondifferent parameters and may not yield comparable results.If eCrCl result is absurd, please check patient'sheight/weight. Estimated Glomerular Filt Rate >60 [facility] Comment:Chronic Kidney Disea se: Estimated GFR < 60 mL/min/1.03x4Szzumj Kidney Disease: Estimated GFR < 15 mL/min/1.73m2 Glucose 117(H) 60 - 115 mg/dL [facility] Calcium 9.1 8.4 - 10.2 mg/dL [facility] Bilirubin, Total 0.4 0.0 - 1.0 mg/dL [facility] Aspartate Amino Transferase 34 5 - 37 U/L [facility] Alanine Aminotransferase 35 0 - 40 U/L [facility] Total Protein 7.3 6.5 - 8.0 g/dL [facility] Albumin Level 4.3 3.5 - 5.0 g/dL [facility] Alkaline Phosphatase 58 39 - 117 U/L [facility] 11/24/2025 3:02 AM EST 11/24/2025 3:07 AM EST us Generic External Data Provider LAB BLOOD ORDERAB LES Final Result Performing Organization Address City/State/[facility] Co de Phone Number [facility] [address] [place] [address] [phone] * XR Lumbar Spine Complete 4+ Views (10/23/2025 10:00 AM EST) Anatomical Region Laterality Modality Spine, L-spine Radiographic Paula ging 10/23/2025 10:0 0 AM EST Narrative 10/23/2025 10:22 AM EST [place] [address] XRay Report Signed Patient: Jennifer Miles MR#: [id number] [birth year] : 1980 Acct:[id number] Age/Sex: 45 / M ADM Date: 10/23/25 Loc: [facility] Attending Dr: Cyndi Wilburn RETAIL ASSISTANT Ordering Physician: Cyndi Wilburn NP Date of Service: 10/23/25 Procedure(s): XR lumbar spine 4V min Accession Number(s): [id number] cc: Cyndi Wilburn NP Reason for Exam: low back pain and pelvic pain EXAMINATION: X-ray lumbar spine CLINICAL INFORMATION: Low back pain, pelvic pain COMPARISON: X-ray 02/05/2022 TECHNIQUE: 5 views FINDINGS: 5 nonrib-bearing lumbar type vertebral bodies. No evidence of acute fracture or subluxation. Vertebral body heights are maintained. Disc spaces are maintained. No suspicious bony lesions. SI joints are symmetric. No suspicious soft tissue calcifications. XR/XR lumbar spine 4V min IMPRESSION: No acute findings Electronically signed by: Ander Donohue MD 10/23/2025 10:19 AM EST RP Dictated By: Ander Donohue MD Signed By: <Electronically signed by Ander Donohue MD in OV> 10/23/25 1019 DD/ 1000 TD/TT: 10/23/25 1013 Wool Hat Sanding Machine Operator: EVER Procedure Note Donotuseinterpreter, Image - 10/23/[address] [address] XRay Report Signed Patient: Han Miles#: [id number] 02 : 1980Acct:[id number] Age/Sex: 45 / MADM Date: 10/23/25 Loc: [facility] Attending Dr: Cyndi Wilburn RETAIL ASSISTANT Ordering Physician: Cyndi Wilburn NP Date of Service: 10/23/25 Procedure(s): XR lumbar spine 4V min Accession Number(s): [id number] cc: Cyndi Wilburn NP Reason for Exam: low back pain and pelvic pain EXAMINATION: X-ray lumbar spine CLINICAL INFORMATION: Low back pain, pelvic pain COMPARISON: X-ray 02/05/2022 TECHNIQUE: 5 views FINDINGS: 5 nonrib-bearing lumbar type vertebral bodies. No evidence of acute fracture or subluxation. Vertebral body heights are maintained. Disc spaces are maintained. No suspicious bony lesions. SI joints are symmetric. No suspicious soft tissue calcifications. XR/XR lumbar spine 4V min IMPRESSION: No acute findings Electronically signed by: Ander Donohue MD 10/23/2025 10:19 AM EST RP Dictated By: Ander Donohue MD Signed By: <Electronically signed by Ander Donohue MD in OV> 10/23/25 1019 DD/ 1000 TD/TT: 10/23/25 1013 Wool Hat Sanding Machine Operator: EVER us Cyndi Wilburn RETAIL ASSISTANT IMG XR PROCEDURES Final Result * XR Hip 2 or 3 Views Right (10/23/2025 9:35 AM EST) Anatomical Region Laterality Modality Lower Extremities, Hip Right Radiograp hic Imaging 10/23/2025 9:35 AM EST Narrative 10/23/2025 10:21 AM EST [address] [address] XRay Report Signed Patient: Jennifer Miles MR#: [id number] 02 : 1980 Acct:[id number] Age/Sex: 45 / M ADM Date: 10/23/25 Loc: [facility] Attending Dr: Cnydi Wilburn RETAIL ASSISTANT Ordering Physician: Cyndi Wilburn NP Date of Service: 10/23/25 Procedure(s): XR hip RT min 2V Accession Number(s): [id number] cc: Cyndi Wilburn NP Reason for Exam: hip pain EXAMINATION: XR HIP 2 OR MORE VIEWS LEFT, XR HIP 2 OR MORE VIEWS RIGHT HISTORY: hip pain COMPARISON: Comparison is made with the prior examination of the left hip dated 02/05/2022. FINDINGS: Two views of each hip are submitted. Osseous mineralization is normal. There is no fracture or dislocation. The joint spaces are maintained. The soft tissues are unremarkable. XR/XR hip RT min 2V IMPRESSION: Unremarkable examination of the bilateral hips. Electronically signed by: Deepak Weldon MD 10/23/2025 10:18 AM EST Dictated By: Deepak Weldon MD Signed By: <Electronically signed by Deepak Weldon MD in OV> 10/23/25 1018 DD/ 0935 TD/TT: 10/23/25 1013 Wool Hat Sanding Machine Operator: Procedure Note Adriano, Miriam - 10/23/[address] [address] XRay Report Signed Patient: Viki MilesR#: [id number] 02 : 1980Acct:[id number] Age/Sex: 45 / MADM Date: 10/23/25 Loc: [facility] Attending Dr: Cyndi Wilburn RETAIL ASSISTANT Ordering Physician: Cyndi Wilburn NP Date of Service: 10/23/25 Procedure(s): XR hip RT min 2V Accession Number(s): [id number] cc: Cyndi Wilburn NP Reason for Exam: hip pain EXAMINATION: XR HIP 2 OR MORE VIEWS LEFT, XR HIP 2 OR MORE VIEWS RIGHT HISTORY: hip pain COMPARISON: Comparison is made with the prior examination of the left hip dated 02/05/2022. FINDINGS: Two views of each hip are submitted. Osseous mineralization is normal. There is no fracture or dislocation. The joint spaces are maintained. The soft tissues are unremarkable. XR/XR hip RT min 2V IMPRESSION: Unremarkable examination of the bilateral hips. Electronically signed by: Deepak Weldon MD 10/23/2025 10:18 AM EST Dictated By: Deepak Weldon MD Signed By: <Electronically signed by Deepak Weldon MD in OV> 10/23/25 1018 DD/ 0935 TD/TT: 10/23/25 1013 Wool Hat Sanding Machine Operator: Cyndi Wilburn NP IMG XR PROCEDURES Final Result * XR Hip 2 or 3 Views Left (10/23/2025 9:32 AM EST) Anatomical Region Laterality Modality Lower Extremities, Hip Left Radiograp hic Imaging 10/23/2025 9:32 AM EST Narrative 10/23/2025 10:21 AM EST [address] [address] XRay Report Signed Patient: Jennifer Miles MR#: [id number] 02 : 1980 Acct:[id number] Age/Sex: 45 / M ADM Date: 10/23/25 Loc: [facility] Attending Dr: Cyndi Wilburn RETAIL ASSISTANT Ordering Physician: Cyndi Wilburn NP Date of Service: 10/23/25 Procedure(s): XR hip LT min 2V Accession Number(s): [id number] cc: Graef,Cyndi B RETAIL ASSISTANT Reason for Exam: hip pain EXAMINATION: XR HIP 2 OR MORE VIEWS LEFT, XR HIP 2 OR MORE VIEWS RIGHT HISTORY: hip pain COMPARISON: Comparison is made with the prior examination of the left hip dated 02/05/2022. FINDINGS: Two views of each hip are submitted. Osseous mineralization is normal. There is no fracture or dislocation. The joint spaces are maintained. The soft tissues are unremarkable. XR/XR hip LT min 2V IMPRESSION: Unremarkable examination of the bilateral hips. Electronically signed by: Deepak Weldon MD 10/23/2025 10:18 AM EST RP Dictated By: Deepak Weldon MD Signed By: <Electronically signed by Deepak Weldon MD in OV> 10/23/25 1018 DD/ 0932 TD/TT: 10/23/25 1013 Wool Hat Sanding Machine Operator: Procedure Note Donotuseinterpreter, Image - 10/23/2025 [place] [address] XRay Report Signed Patient: Han Miles#: [id number] 02 : 1980Acct:[id number] Age/Sex: 45 / MADM Date: 10/23/25 Loc: [facility] Attending Dr: Cyndi Wilburn RETAIL ASSISTANT Ordering Physician: Cyndi Wilburn NP Date of Service: 10/23/25 Procedure(s): XR hip LT min 2V Accession Number(s): [id number] cc: Cyndi Wilburn NP Reason for Exam: hip pain EXAMINATION: XR HIP 2 OR MORE VIEWS LEFT, XR HIP 2 OR MORE VIEWS RIGHT HISTORY: hip pain COMPARISON: Comparison is made with the prior examination of the left hip dated 02/05/2022. FINDINGS: Two views of each hip are submitted. Osseous mineralization is normal. There is no fracture or dislocation. The joint spaces are maintained. The soft tissues are unremarkable. XR/XR hip LT min 2V IMPRESSION: Unremarkable examination of the bilateral hips. Electronically signed by: Deepak Weldon MD 10/23/2025 10:18 AM EST RP Dictated By: Deepak Weldon MD Signed By: <Electronically signed by Deepak Weldon MD in OV> 10/23/25 1018 DD/ 0932 TD/TT: 10/23/25 1013 Wool Hat Sanding Machine Operator: us Cyndi Wilburn RETAIL ASSISTANT IMG XR PROCEDURES Final Result * TSH W/Reflex to FT4 (10/23/2025 8:43 AM EST) TSH reflex Free T4 3.45 0.32 - 4.0 uIU/mL [facility] Blood Venous blood specimen / Unknown 10/23/2025 8:43 AM EST 10/23/2025 11:01 AM EST us Cyndi Wilburn NP LAB BLOOD ORDERABLES Final Resul t Performing Organization Address [facility] Co de Phone Number [facility] [address] [place] [address] [phone] * (ABNORMAL) Sed Rate by Modified Marquiseren (10/23/2025 8:43 AM EST) Erythrocyte Sedimentation Rate 18(H) 0 - 15 MM/HR [facility] Comment:Patients with polycy themia and many hemoglobin abnormalitiesmay have depressed sed rates whereas patients with anemiamay have elevated sed rates. Blood Venous blood specimen / Unknown 10/23/2025 8:43 AM EST 10/23/2025 11:01 AM EST us Cyndi Wilburn NP LAB BLOOD ORDERABLES Final Resul t Performing Organization Address [facility] Co de Phone Number [facility] [address] [place] [address] [phone] * Testosterone, Free (Dialysis) And Total, MS (10/23/2025 8:43 AM EST) Testosterone, Total 358 250 - 1100 ng/dL [facility] Comment:For additional infor dakota, please refer tohttp://education.[employer]/faq/HwncwVccugzkkdrdsSYZSUUNKB233(This link is being provided for informational/educational purposes only.)This test was developed and its analytical performancecharacteristics have been determined by [employer], [place]. It hasnot been cleared or approved by the U.S. Food and DrugAdministration. This assay has been validated pursuantto the CLIA regulations and is used for clinicalpurposes.For additional information, please refer tohttp://education.[employer]/faq/TotalTestosteroneLCMSMS(This link is being provided for informational/educational purposes only.)This test was developed and its analytical performancecharacteristics have been determined by [employer]. It has not been cleared or approved by theFDA. This assay has been validated pursuant to the CLIAregulations and is used for clinical purposes. Testosterone, Free TNP pg/mL [facility] Comment:TEST(S) NOT PERFORME D: TESTOSTERONE, FREETEST NOT PERFORMED.Quantity not sufficient.THIS TEST WAS PERFORMED AT:[employer] [place] [address]DTNXGKGFELICITY NORWOOD MD,PHD Blood Venous blood specimen / Unknown 10/23/2025 8:43 AM EST 10/23/2025 11:01 AM EST us Cyndi Wilburn NP LAB BLOOD ORDERABLES Final Resul t Performing Organization Address [facility] Co de Phone Number [facility] [address] [place] [phone] * C-reactive Protein (10/23/2025 8:43 AM EST) C Reactive Protein 0.28 < or = 0.50 mg/dL [facility] Blood Venous blood specimen / Unknown 10/23/2025 8:43 AM EST 10/23/2025 11:01 AM EST Cyndi Wilburn NP LAB BLOOD ORDERABLES Final Resul t Performing Organization Address City/[facility]/ZIP Co de Phone Number [facility] [address] [place] [phone] * POCT HGB A1C (04/12/2025 10:49 AM EDT) Hemoglobin A1C 5.7 4.0 - 6.0 % QC Media Lot # [id number] Lot# Expiration Date Blood 04/12/2025 10:4 9 AM EDT us Cyndi Wilburn RETAIL ASSISTANT POINT OF CARE TEST ENTER/EDIT OR DERABLES Final Result * (ABNORMAL) Lipid Panel, Standard (10/18/2024 1:42 PM EST) Triglycerides 283(H) <150 mg/dL [facility] Comment:Desirable Triglyceri de: less than 150 mg/dLBorderline High Triglyceride 150-199 mg/dLHigh Triglyceride: 200-499 mg/dLVery High Triglyceride: greater than or equal to 5OO mg/dL Cholesterol 162 <200 mg/dL [facility] Comment:Desirable Cholestero l: less than 200 mg/dLBorderline High Cholesterol: 200-239 mg/dLHigh Cholesterol: greater than 239 mg/dL LDL Cholesterol Calculated 74 <100 mg/dL [facility] Comment:Desirable LDL: less than 100 mg/dLNear Optimal/Above Optimal LDL: 110- 129 mg/dLBorderline High LDL: 130-159 mg/dLHigh LDL: 160-189 mg/dLVery High LDL: greater than or equal to 190 mg/dL HDL Cholesterol 32(L) >40 mg/dL [facility] Comment:Desirable HDL: great er than 40 mg/dL Note: This HDL assay may give artificially low results in patients with liver disease. Blood Venous blood specimen / Unknown 10/18/2024 1:42 PM EST 10/18/2024 4:07 PM EST us Cyndi Wilburn RETAIL ASSISTANT LAB BLOOD ORDERABLES Final Resul t [facility] [address] [place] [phone] * HEPATITIS C AB W/REFL TO HCV RNA, QN, PCR (12/09/2021 9:18 AM EST) HEPATITIS C ANTIBODY NON-REACT JONAH NON-REACT JONAH [facility] INDEX 0.09 <1.00 [facility] Comment: HCV antibody was non-reactive. There is no laboratory evidence of HCV infection. In most cases, no further action is required. However, if recent HCV exposure is suspected, a test for HCV RNA (test code 74337) is suggested. For additional information please refer to http://[employer]/faq/DAD60z3 (This link is being provided for informational/ educational purposes only.) 12/09/2021 9:18 AM EST Erin Edwige Castaneda RECORDING ENGINEER HISTORICAL/NON ORDERABLE L ABS Final Result [facility] [address] * HIV 1/2 ANTIGEN/ANTIBODY,FOURTH GENERATION W/RFL (12/09/2021 9:18 AM EST) HIV-1/2 ANTIGEN AND ANTIBODIES, 4TH GENERATION W/ REFLEX NON-REACT JONAH NON-REACT JONAH [facility] Comment: HIV-1 antigen [...] purpose. For additional information please refer to http://[employer]/faq/HAP783 (This link is being provided for informational/ educational purposes only.) The performance of this assay has not been clinically validated in patients less than 2 years old. 12/09/2021 9:18 AM EST us Erin Castaneda RECORDING ENGINEER LAB BLOOD ORDERABLES Final Result [facility] [address] from Last 3 Months or Most Recently Relevant to Health Maintenance Insurance MEDICARE Member Subscriber Plan / Payer (Ef fective 2024-Present) Name:Jennifer Miles Member ID:[id number] Relation to Subscriber:Self Name:Jennifer Miles Subscriber ID:[id number] Payer ID:STATE Group ID:Not on file Type:Medicare [facility] [address] [id number] [facility] Care Teams Diesel Technician Relationship Specialty Start Date End Date Cyndi Wilburn NP [address] [place] [id number] PCP - General Family Medicine 08/02/24
--- NOTE | 2025-11-24 04:11 | ED_ITS ---
HPI - Syncope General Chief Complaint: Syncope Stated Complaint: headstrike Time Seen by Provider: 11/24/25 04:00 Source: patient and family Mode of arrival: ambulatory Limitations: no limitations History of Present Illness ED Provider: Kiran CANELA HPI narrative: The patient is a 45-year-old male who presents after a fall that occurred shortly after he was attempting to have a bowel movement at home overnight. He reports straining on the toilet when he suddenly felt ?weird,? nauseated, and light-headed. He stood up, leaned on the sink for support, and the next thing he remembers is awakening on the hallway floor approximately 10-15 feet away with active bleeding from his head. He is unsure how long he was unconscious. His brother, Yogesh, was sleeping in a nearby room, did not hear the initial fall but did eventually hear the patient calling out for help. Patient reports his home blood pressure measurements immediately afterward were 92/65 mm Hg, then 99 systolic, and later 120 just prior to leaving the house. He denies associated chest pain, headache, focal neuro deficit, abd pain, vomiting, diarrhea, alcohol use, recent injury, recent sick contacts, or similar previous symptoms. Related Data Home Medications ?Medication ?Instructions ?Recorded ?Confirmed alprazolam 0.5 mg tablet 0.5 mg PO DAILY PRN Anxiety 03/21/21 03/24/25 risperidone 2 mg tablet 2 mg PO BEDTIME 03/21/21 sertraline 100 mg tablet 200 mg PO DAILY 03/21/21 atorvastatin 20 mg tablet 20 mg PO QAM 01/29/24 cholecalciferol (vitamin D3) 25 25 mcg PO QAM 01/29/24 03/24/25 mcg (1,000 unit) tablet hydroxyzine pamoate 50 mg capsule mg PO BEDTIME 01/26/25 Previous Rx's ?Medication ?Instructions ?Recorded bacitracin 500 unit/gram topical 1 appl topical BID #3 0 grams 04/29/22 ointment lidocaine 5 % topical patch 1 patch topical DAILY PRN pain #30 04/29/22 (Lidoderm) ea celecoxib 200 mg capsule 200 mg PO BID #60 caps 02/10 fexofenadine 180 mg tablet 180 mg PO DAILY #20 tabs ([facility]els Allergy) ibuprofen 600 mg tablet 600 mg PO TID PRN fever or p ain 03/29/24 #14 tabs sulfamethoxazole 800 1 tab PO BID #20 tabs mg-trimethoprim 160 mg tablet (Bactrim DS) oxycodone-acetaminophen 5 mg-325 1 tab PO Q6H PRN pain #20 tabs 03/24/ mg tablet Allergies Allergy/AdvReac Type Severity Reaction Status Date / Time No Known Allergies Allergy Verified 11/24/25 02:24 Review of Systems 2 Review of Systems: Yes all other systems are reviewed and are negative PMFSH Past Medical History Medical History Hidradenitis suppurativa Morbid obesity Sacrococcygeal pilonidal cyst Epidermal cyst Epidermal inclusion cyst PTSD (post-traumatic stress disorder) Surgical History History of open reduction and internal fixation (ORIF) procedure History of surgical removal of pilonidal cyst History of excision of epidermal inclusion cyst (~01/09/22) Social History Social History Are you a primary manager intensive care to a significant other at home: No Do you presently have visiting nurse or other home services: No Alcohol intake: never Patient Tobacco Use Status: Former Tobacco user Tobacco use type: Cigarette Years Smoked: 20 Advance Directives: No Current occupational status: unemployed Current occupation: rt handed Physical Exam 2 Vital Signs: Vital Signs: Last Vital Signs Temp 97.2 F 11/24/25 05:45 Pulse 69 11/24/25 05:45 Resp 18 11/24/25 05:45 BP 112/80 11/24/25 05:45 Pulse Ox 97 11/24/25 05:45 O2 Del Method Room Air 11/24/25 05:45 BMI result Body Mass Index 37.6 CONSTITUTIONAL: The patient appears non-toxic, well nourished and in no acute distress. Vital signs as documented. HEAD: There is a Y shaped laceration noted between the eyebrows extending towards the nose, head is otherwise atraumatic, normocephalic. EYES: EOMs intact, pupils equal and appropriately reactive, conjunctiva clear, no exudate. ENT: Nares patent, no clear or bloody rhinorrhea or otorrhea. Airway patent, no audible stridor, visible mucosa is pink and moist without noted lesions. NECK: Trachea is midline, no obvious masses or gross abnormalities. CHEST: Symmetric movement, normal appearance. LUNGS: LS present and CTAB, no w/r/r. Non-labored work of breathing. CARDIAC: Regular Rhythm, S1/S2 appreciated, no murmurs, rubs or gallops. ABDOMEN: Abdomen soft and non-tender x4 quadrants, no palpable masses or organomegaly. : Deferred. EXTREMITIES: Normal tone, moves all extremities spontaneously without reported pain. No obvious acute injury or deformity noted. NEURO: Alert and oriented x3, CN II-XII intact. Cerebellar Functioning intact. No sensory or motor deficits. Strength 5/5 x4. Speech clear and appropriate. Patient ambulates with a steady gait. PSYCH: normal affect, appropriate eye contact, fluid speech, with appropriate response to questioning. No reported suicidality or homicidality. SKIN: Warm, dry, color appropriate, normal turgor. No rashes noted. Medications Administered Discontinued Medications Generic Name Dose Route Start Last Admin Trade Name Freq PRN Reason Stop Dose Admin Lidocaine HCl 5 ml 11/24/25 04:50 11/24/25 05:30 Lidocaine Hcl 1 % Mpf 5 Ml Vial INFILTRATI 11/24/25 04:51 5 ml ONCE ONE Administration Medical Decision Making Medical Decision Making [facility] Narrative: 4:13 AM 11/24/2025 (Ayala CANELA): The patient is a 45-year-old male who presents after a fall that occurred shortly after he was attempting to have a bowel movement at home overnight. He reports straining on the toilet when he suddenly felt ?weird,? nauseated, and light-headed. He stood up, leaned on the sink for support, and the next thing he remembers is awakening on the hallway floor approximately 10-15 feet away with active bleeding from his head. He is unsure how long he was unconscious. His brother, Yogesh, was sleeping in a nearby room, did not hear the initial fall but did eventually hear the patient calling out for help. Patient reports his home blood pressure measurements immediately afterward were 92/65 mm Hg, then 99 systolic, and later 120 just prior to leaving the house. He denies associated chest pain, headache, focal neuro deficit, abd pain, vomiting, diarrhea, alcohol use, recent injury, recent sick contacts, or similar previous symptoms. On exam the patient has a Y shaped laceration between his eyebrows, mild capillary bleeding noted. This laceration will require repair. The patient's laboratory evaluation is reassuring, no leukocytosis, significant anemia, electrolyte abnormality, or MARY. The patient's EKG is nonischemic. Patient's presentation of symptoms appears consistent with a vasovagal syncope after straining in the bathroom, however due to the patient's unwitnessed loss of consciousness with unknown downtime, and obvious facial trauma, the patient will be evaluated with CT head and neck. 5:47 AM 11/24/2025 (Ayala CANELA): Troponin is normal. Patient's laceration has been repaired with good approximation, the patient's head and neck CT are negative for calvarial fracture, cervical fracture, or intracranial hemorrhage. The patient's viral swab is pending. Pending results of viral swab we will discharge with supportive care. Lab Data MDM Lab Attestation statement: I reviewed the patient's lab results. 11/24/25 03:02 11/24/25 03:02 Labs: Lab Results 11/24/25 Range/Units 03:02 WBC 6.1 (4.8-10.8) X10*3/uL RBC 4.26 L (4.60-5.80) X10*6/uL Hgb 12.9 L (14.0-18.0) g/dl Hct 37.6 L (42.0-52.0) % MCV 88.3 (80.0-98.0) fL MCH 30.3 (27.0-33.0) pg MCHC 34.3 (31.0-36.0) g/dl RDW 12.7 (11.0-16.0) % Plt Count 200 (160-400) X10*3/uL MPV 10.0 (9.4-12.4) fL Immature Gran % (Auto) 0.2 (0.0-0.4) % Neut % (Auto) 52.6 (45-73) % Lymph % (Auto) 32.6 (20-40) % Grayson % (Auto) 9.4 (2-11) % Eos % (Auto) 4.9 H (0-4) % Baso % (Auto) 0.3 (0-2) % Lymph # (Auto) 2.0 (1.2-4.9) X10*3/uL Grayson # (Auto) 0.6 (0.1-1.2) X10*3/uL Eos # (Auto) 0.3 (0.0-0.4) X10*3/uL Baso # (Auto) 0.0 (0.0-0.2) X10*3/uL Abs Immat Gran (auto) 0.01 (0.00-0.03) X10*3/uL Absolute Neuts (auto) 3.2 (2.0-8.3) x10*3/uL Absolute Nucleated RBC 0.000 (0.0-0.012) X10*3/uL Nucleated RBC % (auto) 0.0 (0.0-0.2) /100WBC Sodium 140 (135-145) mmol/L Potassium 4.1 (3.3-5.1) mmol/L Chloride 108 (96-108) mmol/L Carbon Dioxide 24 (22-29) mmol/L Anion Gap 12 (12-20) BUN 16 (9-16) mg/dL Creatinine 1.01 (0.5-1.4) mg/dL Estim Creat Clear Calc 133.9 Estimated GFR > 60 Random Glucose 117 H (60-115) mg/dL Calcium 9.1 (8.4-10.2) mg/dL Total Bilirubin 0.4 (0.0-1.0) mg/dL AST 34 (5-37) U/L ALT 35 (0-40) U/L Alkaline Phosphatase 58 (39-117) U/L Troponin I High Sens < 2.7 (<3.5-35.0) ng/L Total Protein 7.3 (6.5-8.0) g/dL Albumin 4.3 (3.5-5.0) g/dL Independent Interpretation I performed an independent interpretation of an: EKG (EKG shows sinus bradycardia with a rate of 58, no evidence of acute ischemia, no ST elevation, no ectopy. QTC 412, no old for comparison.) Radiology Impression Discussion of test interpretation with radiology: I have reviewed the radiologist's reading. Radiologist Impression: CT cervical spine without contrast Comparison: None provided Findings: Vertebral alignment is within normal limits. No significant degenerative change. No acute fractures or dislocations. No acute findings on limited view of the intracranial contents. No cervical fluid collections or masses. Lung apices are clear. IMPRESSION: No acute findings. This document has been electronically signed by: Roe Angel MD on 11/24/2025 05:26:05 CT head without contrast Comparison: None provided Findings: No intra-axial mass, midline shift, hydrocephalus, or acute hemorrhage. No significant atrophy-like change or white matter disease. The visualized paranasal sinuses and mastoid air cells are normal. The orbits are within normal limits. No skull fracture. IMPRESSION: 1. No acute intracranial findings. This document has been electronically signed by: Roe Angel MD on 11/24/2025 05:28:55 External Record Review External record reviewed: Outpatient record, Prior outpatient labs and Prior outpatient radiology Prescription Management I considered prescription management with: Pain Medication Procedures Laceration Laceration 1: Site: face Size (cm): 3 Description: stellate, irregular and clean Depth: simple, single layer Local Anesthetic: lidocaine 1% Amount of anesthesia used (mL): 4 Pre-repair: wound explored, irrigated extensively and deep structures intact Skin layer closed with: nylon Size (cm): 5-0 Number of sutures: 6 Technique: simple, interrupted Discharge Plan Discharge Clinical Impression: Vasovagal syncope, Forehead laceration Patient Disposition: Home, Self-Care Instructions: Laceration (ED), Syncope (ED) Additional Instructions: Thank you for choosing [facility]'s Emergency Department for your care today. Thankfully your CT head and neck, laboratory evaluation, EKG, exam, and vital signs today are reassuring. At this time there is no indication for admission to the hospital or continued ED observation, and it is safe to discharge you home. Your presentation of symptoms is consistent with a condition known as vasovagal syncope. Please read the attached information regarding this condition. Your laceration today appears noncomplicated. The laceration was repaired with nonabsorbable sutures which will need to be removed in 5-7. Please return to the emergency department or follow-up with your primary care provider for removal of sutures. Please apply bacitracin and a clean dry dressing to the laceration twice daily for the first 2-3 days. Then please keep the area clean and dry, but uncovered and exposed to the air to allow the laceration to heal. While it is perfectly acceptable to allow water to run over the sutures while showering, please do not swim, or submerge the laceration in standing water until the sutures are removed. You should take alternating (staggered) doses of ibuprofen 600mg and Tylenol 1000mg every 4 hours as needed for any additional pain. Please also follow up with your primary care physician for re-evaluation, additional management of your symptoms, and continued preventative care. If you do not have a primary care physician, please call the [facility] at [phone] to establish a new primary care physician. While waiting to establish your new primary care physician, you can call our [facility] at [phone] for non-emergency needs. Please return to the emergency department if you develop any uncontrollable bleeding, re-opening of your wound, redness advancing >1-2 cm away from your wound, or white milky discharge from your wound. Please also return if you experience any recurrent fainting, severe persistent dizziness, uncontrollable vomiting, chest pain, other new or worsening symptoms or concerns. Prescriptions: No Action celecoxib 200 mg capsule 200 mg PO BID Qty: 60 3RF lidocaine [Lidoderm] 5 % adhesive patch,medicated 1 patch topical DAILY MDD remove after 12 hours PRN (Reason: pain) Qty: 30 0RF Rx Instructions: leave on most painful area for up to 12 hrs bacitracin 500 unit/gram ointment 1 appl topical BID Qty: 30 1RF sulfamethoxazole-trimethoprim [Bactrim DS] 800-160 mg tablet 1 tab PO BID Qty: 20 0RF ibuprofen 600 mg tablet 600 mg PO TID PRN (Reason: fever or pain) Qty: 14 0RF oxycodone-acetaminophen 5-325 mg tablet 1 tab PO Q6H PRN (Reason: pain) Qty: 20 0RF Rx Instructions: Partial Fill upon patient request. fexofenadine [[facility]els Allergy] 180 mg tablet 180 mg PO DAILY Qty: 20 0RF atorvastatin 20 mg tablet 20 mg PO QAM cholecalciferol (vitamin D3) 25 mcg (1,000 unit) tablet 25 mcg PO QAM sertraline 100 mg tablet 200 mg PO DAILY alprazolam 0.5 mg tablet 0.5 mg PO DAILY PRN (Reason: Anxiety) risperidone 2 mg tablet 2 mg PO BEDTIME hydroxyzine pamoate 50 mg capsule PO BEDTIME Referrals: Cyndi Wilburn, TRASH COLLECTOR TRUCK DRIVER [Primary Care Provider, Family Practice] Clinical Impression: Vasovagal syncope; Forehead laceration Print Language: Mosotho
[2025-11-24 04:57] LABS: Troponin-I High Sensitivity < 2.7 ng/L (<3.5-35.0)
[2025-11-24] MEDS: Lidocaine HCl 1 % MPF 5 ML VIAL INFILTRATI (05:30)
[2025-11-24 05:45] VITALS: BP 112/80; PULSE 69; RESP 18; TEMP 36.2; O2SAT 97
[2025-11-24 06:13] LABS: Resp Syncy Virus RNA Qual PCR NEGATIVE (Negative); SARS COV2 PCR INHOUSE NEGATIVE (Negative)
[2025-11-24 06:26] VITALS: BP 112/80; PULSE 69; RESP 18; TEMP 36.2; O2SAT 97
== END 2025-11-24 06:26 | disposition home or self-care (01) ==
PROVIDERS: Physician Assistant; Emergency Provider Emergency Medicine; PCP Nurse Practitioner Family
DX: R55 Syncope and collapse (principal); S01.81XA Laceration without foreign body of other part of head, initial encounter; W18.30XA Fall on same level, unspecified, initial encounter; Y93.9 Activity, unspecified; Y92.008 Other place in unspecified non-institutional (private) residence as the place of occurrence of the external cause; R51.9 Headache, unspecified; R00.1 Bradycardia, unspecified; Z03.818 Encounter for observation for suspected exposure to other biological agents ruled out
CPT/HCPCS: 12013; 36415; 70450; 72125; 80053; 84484; 85025; 87637; 93005; 99284; 99285; J2003

== ENCOUNTER → 2025-11-24 02:49 | Outpatient (BNV) | payer MEDICARE, MEDICAID, SELFPAY | PROVIDERS: Emergency Provider Emergency Medicine; PCP Nurse Practitioner Family; Visit Provider Internal Medicine Cardiovascular Disease | DX: R00.1 Bradycardia, unspecified (principal) | CPT/HCPCS: 93010 ==

== ENCOUNTER → 2025-11-24 04:09 | Outpatient (BNV) | payer MEDICARE, MEDICAID, SELFPAY | PROVIDERS: Emergency Provider Emergency Medicine; PCP Nurse Practitioner Family; Visit Provider Specialist | DX: S09.90XA Unspecified injury of head, initial encounter (principal); R55 Syncope and collapse | CPT/HCPCS: 70450; 72125 ==